=== PATIENT | male | born 1980 | race Caucasian/White ===

== ENCOUNTER 2017-03-17 15:07 | Inpatient (IN) | payer MEDICAID, OTHER ==
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
[2017-03-17] MEDS ORDERED: LORazepam 2 MG/ML SYRINGE IV STA (21:20)
[2017-03-17] MEDS ORDERED: diphenhydrAMINE 50 MG/ML 1 ML VIAL IVP STA (21:20)
[2017-03-17] MEDS ORDERED: LORazepam 2 MG/ML SYRINGE IM STA (21:26)
[2017-03-17] MEDS ORDERED: diphenhydrAMINE 50 MG/ML 1 ML VIAL IM STA (21:27)
[2017-03-17] MEDS ORDERED: ACETAMINOPHEN TAB 325 MG TAB PO PRN (21:39)
[2017-03-17] MEDS ORDERED: MAGNESIUM HYDROXIDE 2,400 MG/10 ML CUP PO PRN (21:39)
[2017-03-17] MEDS ORDERED: MAG HYDROX/AL HYDROX/SIMETH 30 ML CUP PO PRN (21:39)
[2017-03-17] MEDS ORDERED: LORazepam 2 MG/ML SYRINGE IM PRN (22:00)
[2017-03-17] MEDS ORDERED: ZIPRASIDONE 20 MG VIAL IM PRN (22:00)
[2017-03-17] MEDS: hydrOXYzine PAMOATE 25 MG CAP PO SCH (22:12)
[2017-03-17] MEDS: NICOTINE 21MG/24HR PATCH TRANSDERM SCH (22:12)
[2017-03-17] MEDS: QUEtiapine 100 MG TAB PO SCH (22:13)
[2017-03-17] MEDS: LORazepam 1 MG TAB PO PRN (23:18)
[2017-03-18] MEDS: NALTREXONE HCL 50 MG TAB PO SCH (08:28)
[2017-03-18] MEDS: hydrOXYzine PAMOATE 25 MG CAP PO SCH ×3 (08:28→20:54)
[2017-03-18] MEDS: NICOTINE 21MG/24HR PATCH TRANSDERM SCH (08:29)
[2017-03-18] MEDS: VENLAFAXINE HCL ER 75 MG CAP PO SCH (08:29)
[2017-03-18] MEDS: LORazepam 1 MG TAB PO PRN ×2 (08:34→17:54)
[2017-03-18 09:15] LABS: Basophils # (A) 0.1 k/uL (0-0.2); Basophils % (A) 1 %; CH 30.3; CHCM 34.5; Eosinophils # (A) 0.1 k/uL (0-0.7); Eosinophils % (A) 1 %; HCT 41.9 % (39.0-53.0); HDW 2.53; HGB 14.2 gm/dL (13.0-17.5); Luc # (Auto) 0.22; Luc % (Auto) 3; Lymphocytes # (A) 2.4 k/uL (1.0-4.8); Lymphocytes % (A) 27 %; MCHC 33.9 g/dL (31.0-37.0); MCV 88.5 fL (80.0-100.0); Mean Platelet Volume 5.8; Monocytes # (A) 0.6 k/uL (0-1.0); Monocytes % (A) 7 %; Neutrophils # (A) 5.5 k/uL (1.3-7.7); Neutrophils % (A) 62 %; RBC 4.73 m/uL (4.30-5.90); RDW 13.1 % (11.5-15.5); WBC (Perox) 9.41
[2017-03-18 09:42] LABS: ALT 30 U/L (21-72); AST 28 U/L (17-59); Alkaline Phosphatase 74 U/L (38-126); Anion Gap 10 mmol/L; Blood Urea Nitrogen 13 mg/dL (9-20); Calcium 10.1 mg/dL (8.4-10.2); Carbon Dioxide 30 mmol/L (22-30); Chloride 101 mmol/L (98-107); Glucose 94 mg/dL (74-99); Non-African American GFR(MDRD) >60 (>60 ml/min/1.73 sqM); Potassium 4.3 mmol/L (3.5-5.1); Sodium 141 mmol/L (137-145); Total Bilirubin 0.6 mg/dL (0.2-1.3); Total Protein 7.3 g/dL (6.3-8.2)
[2017-03-18] MEDS: QUEtiapine XR 200 MG TAB.ER.24H PO SCH ×3 (10:34→10:42)
--- NOTE | 2017-03-18 12:29 | HP ---
DATE OF ADMISSION: 03/17/2017 DATE OF SERVICE: 03/18/2017 IDENTIFYING DATA: Patient is a 36-year-old male. He was released from halfway one a week ago. He has been living in a motel. He has been on medications prescribed through [facility]. The patient was not able to give a very coherent history. CHIEF COMPLAINT: The patient states that he has "crazy thoughts." He says he had suicide thoughts, severe anxiety and difficulty organizing his thoughts. He feels confused. HISTORY OF PRESENTING ILLNESS: Patient reports long-term psychiatric problems. He has had previous admissions at this facility including September 06, 2015 and January 02, 2016. At his September 04 admission it was documented that he reported anxiety and depression. He had a relationship issues. He had moved [place] in the spring. He had similar problems at that time when he went off his medications where he became confused and had thoughts of suicide. He had been on Seroquel and Xanax. He reported being depressed and hopeless. He noted that both his parents who were had psychiatric issues. There were significant alcohol issues within his family. He had some past use of alcohol and marijuana. He reported at least 12 inpatient psychiatric hospitalizations He currently while in halfway, he was taking Seroquel 300 mg at bedtime, Seroquel XR 200 mg at bedtime, Effexor 225 mg a day, hydroxyzine 50 mg 3 times a day, Cogentin 2 mg a day and naltrexone 50 mg a day. He said that he was taking medications regularly in halfway that through his understanding came from [facility]. He does not recall seeing a doctor at [facility]. He got out of halfway one week ago and did not follow-up with [facility] and is not taking any medication. He reports poor sleep. He feels confused. He cannot organize his thoughts. He has anxiety. He gets panic attacks. He denies hallucinations or delusions. He did not report any paranoia. He was clear as to whether he has post traumatic experiences. He has loss of energy and motivation. He says he can keep his thoughts straight. He is admitted for further evaluation. Substance use history: As above. MEDICAL HISTORY: Patient reports general problems with headaches and stomachaches, but he was not specific about any past diagnosis. Patient also reports that he has arthritic pain in his back and joints. Further medical history and review of systems as per medical consultation. SOCIAL HISTORY: The only information the patient provided is that he just was released from halfway and has been living in a motel temporarily, he was not unable to provide any further information. MENTAL STATUS EXAM: Patient was unkempt in appearance. Eye contact fair to poor. Psychomotor activity quite restless. Speech was disorganized. He made frequent contradictory statements. He kept making comments that he was confused and could not keep track of the conversation. His affect was anxious and intense. His mood depressed. He was significantly distressed. It was difficult to say if he was experiencing any psychotic symptoms. He reported thoughts of suicide, though no plan or intent. On cognitive exam he knew some basic facts about his current circumstances, beyond that he was not able to cooperate with formal cognitive assessment. Fund of knowledge average. Physical exam as per medical consultation. DIAGNOSTIC STUDIES: CBC and comprehensive metabolic profile unremarkable. Hemoglobin 14.2, MCV 88.5, glucose 100, creatinine 0.9, TSH 0.3. Urinalysis unremarkable. Urine drug screen negative ASSESSMENT: This 36-year-old male is diagnosed with major depression and panic disorder. I would have concern that he may also have underlying posttraumatic stress disorder given some of the suggestions he made in regards to his family experience. His history at this interview was difficult to follow. Support system is nil. He does not have a stable living situation. Strengths uncertain. Weakness uncertain. DIAGNOSES: 1. Major depression, chronic and recurrent, severe with acute exacerbation without psychotic symptoms. 2. Panic disorder. 3. Rule out posttraumatic stress disorder. RECOMMENDATIONS: Patient will be admitted for comprehensive medical, psychiatric and psychosocial evaluation. Will make efforts to engage the patient in individual and group therapeutic activities. I will start the patient on Seroquel 200 mg XR in the morning, 300 mg regular at night. We will restart Effexor 75 mg a day. He is likely to need to be titrated up to more therapeutic dosing. I will continue Vistaril 50 mg 3 times a day and Naltrexone 50 mg a day. He also will continue Cogentin 2 mg at bedtime. I have started him on Motrin 600 mg q.6 hours p.r.n. for headaches and arthritic pain, which he has some complaint about. We will focus on trying to develop appropriate to community connections and refer for [facility] for follow-up.
[2017-03-18] MEDS: IBUPROFEN 600 MG TAB PO PRN (17:54)
--- NOTE | 2017-03-18 18:44 | CONS ---
DATE OF CONSULTATION: REASON FOR CONSULTATION: Medical history and physical for a patient admitted to psychiatric floor. HISTORY OF PRESENT ILLNESS: This is a 36-year-old gentleman with a remote history of traumatic brain injury and with a history of major depression who was admitted to the hospital with suicidal thoughts. Patient apparently was recently released from the group home; currently has been living in a motel. Patient states that he is having crazy thoughts about hurting himself; however, he has not made any plans to hurt himself. Patient was admitted to the psychiatric floor. During the time of my evaluation, patient denies having any further thoughts at this time; denies having any headaches, blurry vision, nausea, vomiting, diarrhea, chest pain. Patient does state he has a history of ongoing tobacco use and smokes about 2 packs of cigarettes. Past medical history includes major depression, anxiety/panic disorder. SOCIAL HISTORY: Currently lives in a motel. Denies active drug use or alcohol use. Does have a history of narcotic abuse. He smokes about 2 packs of cigarettes. SURGICAL HISTORY: None reported. REVIEW OF SYSTEMS: Fourteen-point review of systems was done; none pertinent other than as described above. FAMILY HISTORY: Not pertinent to the current admission. PHYSICAL EXAM: VITALS: Temperature 97.7, heart rate 89, respiratory rate 18, blood pressure 120/74. Saturating 98% on room air. GENERALLY: Patient appears to be alert, oriented x3. HEENT: The pupils are equal and reactive to light and accommodation. HEART: S1, S2 present. No murmur appreciated. LUNGS: Good air entry. No wheezing or rhonchi noted. ABDOMINAL EXAM: Soft, nontender, no organomegaly appreciated. GENITOURINARY: No Hussein in place. EXTREMITIES: Pulses can be palpated distally. Denies any tenderness on gross palpation. SKIN: On a gross skin exam does not appear to have any purpura or any skin rashes that were noted. PSYCHIATRIC: Patient does not make eye contact. Appears to have a somewhat flat affect. Denies having any suicidal thoughts. NEUROLOGIC EXAM: No focal motor or sensory deficits appreciated. Cranial nerves II through XII grossly intact. Gait is within normal limits. No dysdiadochokinesia appreciated. He is able to answer a 2-step question. He is able to remember 3 objects after 5 minutes. Medications were reviewed. Laboratory values include hemoglobin 14.2, hematocrit 41.9, platelets 287; white count 9; sodium 141, potassium 4.3, chloride 101, bicarb 30; BUN 13, creatinine 0.77. TSH was 0.756. Drug screen revealed drugs of abuse detected on the standard screen. ASSESSMENT AND PLAN: 1. Major depression with suicidal thoughts. 2. Ongoing tobacco use. 3. History of traumatic brain injury. 4. Panic disorder. 5. History of polysubstance use. PLAN: Patient on physical exam is appropriate and within normal limits. Neurologic exam is within normal limits. I do not recommend any further workup from a medicine perspective. Thank you for the consultation. Please call us back with any questions or concerns. Will follow the patient on an as-needed basis.
[2017-03-18] MEDS: QUEtiapine 100 MG TAB PO SCH (20:55)
[2017-03-18] MEDS: BENZTROPINE MESYLATE 1 MG TAB PO SCH (20:55)
[2017-03-19] MEDS: NALTREXONE HCL 50 MG TAB PO SCH (09:08)
[2017-03-19] MEDS: NICOTINE 21MG/24HR PATCH TRANSDERM SCH (09:08)
[2017-03-19] MEDS: hydrOXYzine PAMOATE 25 MG CAP PO SCH ×3 (09:09→21:37)
[2017-03-19] MEDS: LORazepam 1 MG TAB PO PRN ×3 (09:09→21:38)
[2017-03-19] MEDS: QUEtiapine XR 200 MG TAB.ER.24H PO SCH (09:09)
[2017-03-19] MEDS: VENLAFAXINE HCL ER 75 MG CAP PO SCH (09:09)
--- NOTE | 2017-03-19 10:55 | P.PN ---
Progress Note - Text Interval history: The patient is found in the hallway he follows me to an interview room. He states he was recently released from care home approximately one week ago and feels "like a day here in the headlights". He was in care home for approximately one year but refused to tell me what he was convicted of. He is concerned that his medications aren't right and that we are not prescribing what he used to be on with formerly [facility]. We reviewed the medications individually and it appears his Neurontin was not restarted which he feels has been helpful for anxiety. He indicates that he feels very uncomfortable he is anxious and just needs to talk to somebody. He is primarily focused on where he will go after discharge and asks if he would be eligible for a penitentiary. The psychiatric evaluation was reviewed. Mental status exam: The patient is a thin male appearing older than his stated age. He is dressed in jeans and or's T-shirt with an orange hooded sweatshirt with his thomas up. He has a long haque. The patient reports an anxious mood and feels depressed. Speech is fluent spontaneous he speaks with a southern accent. He reports hopelessness thinking was suicidal thoughts if he has to live like this area did no homicidal ideation. He is endorsing no auditory or visual hallucinations no specific delusions. He likely has a low average to below average intellect. He is concrete with his thinking. He demonstrates no verbal or physical aggressiveness. No abnormal involuntary movements. Insight and judgment limited. Plan: The patient will continue on his current psychotropic medications. We will add Neurontin 300 mg 3 times daily. He shows me a sore on his abdomen that he states is been there for several days that has not improved does appear erythematous it is scabbed over. I will prescribe Keflex 500 mg twice daily. We will monitor him for safety and encourage his participation in the milieu.
[2017-03-19] MEDS: CEPHALEXIN 500 MG CAP PO SCH ×2 (11:24→21:37)
[2017-03-19] MEDS: GABAPENTIN 300 MG CAP PO SCH ×3 (11:26→21:38)
[2017-03-19] MEDS: BENZTROPINE MESYLATE 1 MG TAB PO SCH (21:37)
[2017-03-19] MEDS: QUEtiapine 100 MG TAB PO SCH (21:37)
[2017-03-20] MEDS: hydrOXYzine PAMOATE 25 MG CAP PO SCH ×3 (08:33→20:32)
[2017-03-20] MEDS: NICOTINE 21MG/24HR PATCH TRANSDERM SCH (08:33)
[2017-03-20] MEDS: QUEtiapine XR 200 MG TAB.ER.24H PO SCH (08:34)
[2017-03-20] MEDS: GABAPENTIN 300 MG CAP PO SCH ×3 (08:34→20:32)
[2017-03-20] MEDS: VENLAFAXINE HCL ER 75 MG CAP PO SCH (08:34)
[2017-03-20] MEDS: CEPHALEXIN 500 MG CAP PO SCH ×2 (08:34→20:53)
[2017-03-20] MEDS: NALTREXONE HCL 50 MG TAB PO SCH (08:34)
[2017-03-20] MEDS: LORazepam 1 MG TAB PO PRN ×3 (08:35→20:32)
[2017-03-20] MEDS ORDERED: VENLAFAXINE HCL ER 75 MG CAP PO ONE (11:42)
--- NOTE | 2017-03-20 11:46 | P.PN ---
Progress Note - Text Interval history: The patient is found in the hallway he follows me to an interview room. He reports his mood is depressed and he feels anxious. We discussed his dose of Effexor and he states he knows he does better on the higher dose and currently is just at 75 mg. We discussed titrating that further. He is hoping he will build to sit down with social work for individual counseling. He did sleep last night it is documented that he slept 7 hours. Appetite is stable. He expresses concern that he won't be better prior to discharge. Mental status exam: The patient is a male appearing older than his stated age. He is dressed in the same attire yesterday wearing an orange hooded sweatshirt with the thomas up. He speaks with a southern accent. He endorses a depressed mood that is causing hopeless thinking. He reports ongoing symptoms of anxiety. He feels anxiety symptoms are debilitating. He reports no homicidal ideation. He is endorsing no auditory or visual hallucinations. He demonstrates no verbal or physical aggressiveness. Affect is blunted. Insight and judgment limited. He is oriented to person place and date. Thought process is circumstantial at times but there is no tangential thinking loose associations or flight of ideas. Plan: The patient has been restarted on his previous psychotropic medications we will increase the Effexor 250 mg daily this may need to be ultimately titrated back to 225 mg daily. Neurontin his is been restarted yesterday. He is encouraged to speak with staff to process his anxiety feelings. He is encouraged to attend groups. We will monitor him for safety. Vital signs reviewed.
--- NOTE | 2017-03-20 15:22 | PN ---
Patient was seen as consulted by Dr. Perez, my colleague and I was asked to re-evaluate the patient because of possibility of cellulitis. The patient has redness. There is a skin breakdown, probably from his itching, redness on the right side below the umbilical area with small area of cellulitis. Patient was started on Keflex which is appropriate I believe. Patient will be continued on Keflex. I reviewed his vital signs vitals which are stable. The temperature is 97.1%, pulse 77, respiratory rate of 16, blood pressure 102/64. I reviewed his medications and patient's renal function was assessed and normal creatinine a couple days ago. I agree with Keflex. There is no obvious abscess at this point of time. I recommended marking that area and watching that area on Keflex. If it does not improve or if it turns out to be abscess, then patient will need drainage at that time. I also ordered blood culture, although I do not expect it to be positive. Will continue to follow the patient on an as-needed basis.
[2017-03-20] MEDS: QUEtiapine 100 MG TAB PO SCH (20:32)
[2017-03-20] MEDS: BENZTROPINE MESYLATE 1 MG TAB PO SCH (20:32)
[2017-03-21 06:50] VITALS: TEMP 97.6
[2017-03-21] MEDS: NICOTINE 21MG/24HR PATCH TRANSDERM SCH (08:48)
[2017-03-21] MEDS: QUEtiapine XR 200 MG TAB.ER.24H PO SCH (08:49)
[2017-03-21] MEDS: NALTREXONE HCL 50 MG TAB PO SCH (08:49)
[2017-03-21] MEDS: LORazepam 1 MG TAB PO PRN ×2 (08:49→14:38)
[2017-03-21] MEDS: hydrOXYzine PAMOATE 25 MG CAP PO SCH (08:49)
[2017-03-21] MEDS: IBUPROFEN 600 MG TAB PO PRN (08:49)
[2017-03-21] MEDS: GABAPENTIN 300 MG CAP PO SCH (08:49)
[2017-03-21] MEDS: CEPHALEXIN 500 MG CAP PO SCH (08:49)
[2017-03-21 08:54] VITALS: BP 117/81; PULSE 111; RESP 20
[2017-03-21] MEDS ORDERED: VENLAFAXINE HCL ER 150 MG CAP PO SCH (09:00)
[2017-03-21] MEDS ORDERED: SULFAMETHOX-TMP 800-160MG 1 EACH TAB PO SCH (12:45)
--- NOTE | 2017-03-21 13:46 | P.DS ---
Providers Date of admission: 03/17/17 21:23 Attending physician: Preston Rodriguez Consults: 03/17/17 21:55 Consult Physician Routine Consulting Provider: Mia Marin Consult Reason/Comments: Medical Management Do you want consulting provider notified?: Yes Primary care physician: Zakia East - Discharge Diagnosis(es) (1) Suicidal ideation Current Visit: Yes Status: Acute Priority: Low (2) Alcohol intoxication Current Visit: Yes Status: Acute Priority: Low (3) Antisocial personality disorder Current Visit: Yes Status: Chronic Priority: Medium (4) Depression Current Visit: Yes Status: Acute Priority: Medium Hospital Course: He is a 36-year-old male who was released from assisted 1 week prior to admission. He was released from assisted with referral to [facility] however he did not keep his appointment. He did not provide a very coherent and organized history. He complained about having "crazy thoughts" which included thoughts of suicide, severe anxiety feeling confused and difficulty organizing his thoughts. He admitted to alcohol use and his BAL on presentation to the ER was 0.153. His UDS was negative for drugs of abuse. His long history of mental illness with multiple psychiatric hospitalizations. His last admission to this facility was in December 2015. See admission history dated 03/18/2017. We admitted him to the psychiatric unit under the care of Dr. Rodriguez. We provided a biopsychosocial assessment. 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 Sarita is prescribed Bactrim DS 1 tab twice a day for the cellulitis. We continue the medications prescribed on discharge from assisted that included: Cogentin 2 mg at bedtime, Neurontin 300 mg 3 times a day, Vistaril 50 mg 3 times a day, ReVia 50 mg daily, Seroquel 3 mg at bedtime and Seroquel XR 200 mg daily. We started Effexor XR for the treatment of complains of depression and anxiety and titrated dose to 150 mg daily. He participated intermittently in therapeutic groups and activities. He posed no management problem or displayed episodes of behavioral dyscontrol. He called [facility] and arrange for a bed at their [facility] house. At the time of discharge he denied thoughts of or suicide. She denied psychotic symptoms such as auditory or visual hallucinations, ideas of reference, thought insertion, thought broadcasting or thought control. He is scheduled for aftercare through community mental health services. In addition to the above prescribed medication he asked for a one-week supply of lorazepam 1 mg 3 times a day when necessary. Patient Condition at Discharge: Good Plan - Discharge Summary New Discharge Prescriptions: Benztropine Mesylate [Cogentin] 2 mg PO HS 30 Days Gabapentin [Neurontin] 300 mg PO TID 30 Days LORazepam [Ativan] 1 mg PO TID PRN #21 tab PRN Reason: Anxiety Naltrexone HCl [Revia] 50 mg PO QAM 30 Days Nicotine 21Mg/24Hr Patch [Habitrol] 1 patch TRANSDERM DAILY 7 Days QUEtiapine FUMARATE [SEROquel] 300 mg PO HS 30 Days QUEtiapine XR [SEROquel XR] 200 mg PO DAILY 30 Days Venlafaxine HCl ER [Effexor XR] 150 mg PO DAILY 30 Days hydrOXYzine PAMOATE [Vistaril] 50 mg PO TID 30 Days Discharge Medication List Benztropine Mesylate [Cogentin] 2 mg PO HS 30 Days 03/21/17 [Rx] Gabapentin [Neurontin] 300 mg PO TID 30 Days 03/21/17 [Rx] LORazepam [Ativan] 1 mg PO TID PRN #21 tab 03/21/17 [Rx] Naltrexone HCl [Revia] 50 mg PO QAM 30 Days 03/21/17 [Rx] Nicotine 21Mg/24Hr Patch [Habitrol] 1 patch TRANSDERM DAILY 7 Days 03/21/17 [Rx] QUEtiapine FUMARATE [SEROquel] 300 mg PO HS 30 Days 03/21/17 [Rx] QUEtiapine XR [SEROquel XR] 200 mg PO DAILY 30 Days 03/21/17 [Rx] Venlafaxine HCl ER [Effexor XR] 150 mg PO DAILY 30 Days 03/21/17 [Rx] hydrOXYzine PAMOATE [Vistaril] 50 mg PO TID 30 Days 03/21/17 [Rx] Follow up Appointment(s)/Referral(s): [facility] [Outside] - 03/23/17 11:40 am (Dr Bang) Zakia East MD [Primary Care Provider] - 1-2 days Patient Instructions/Handouts: How to Stop Smoking (DC), Depression (DC), Abuse of Alcohol (DC), Suicide Prevention for Adults (DC) Activity/Diet/Wound Care/Special Instructions: No alcohol or street drugs. Take medications as prescribed. Notify the crisis line or your care provider if symptoms worsen. Crisis line no. . Regular diet. Activity as tolerated. Make an appointment and follow up with your primary care doctor to follow up for abdominal wound. Discharge Disposition: HOME SELF-CARE
--- NOTE | 2017-03-21 18:44 | PN ---
I reevaluated this patient for his cellulitis in the abdominal area. Patient started having pus again; expressed a few milliliters of pus. I am getting cultures from that. Patient is being discharged today. I do not believe patient will need to be admitted as an inpatient. Patient's cellulitis, although improved, has more induration compared to yesterday. I asked him to watch it closely, and if it does not get better, I asked him to go and see his primary doctor. Patient has a history of MRSA. I am changing his Keflex to Bactrim for 7 days. Local wound care counseling was provided. Patient in my opinion does not need inpatient hospitalization. He can be discharged from psychiatric facility. Bactrim prescription was provided. Patient's vitals are stable.
== END 2017-03-21 15:34 | disposition home or self-care (01) | DRG 885 ==
LOC: EC 15:07 → 3MHU 21:23
PROVIDERS: ADMIT Psychiatry & Neurology Psychiatry; ATTEND Psychiatry & Neurology Psychiatry
DX: F33.2 Major depressive disorder, recurrent severe without psychotic features (principal); R45.851 Suicidal ideations; L03.316 Cellulitis of umbilicus; F31.9 Bipolar disorder, unspecified; F41.0 Panic disorder [episodic paroxysmal anxiety]; F60.2 Antisocial personality disorder; F17.210 Nicotine dependence, cigarettes, uncomplicated; Z87.820 Personal history of traumatic brain injury; Z86.14 Personal history of Methicillin resistant Staphylococcus aureus infection; Z79.899 Other long term (current) drug therapy; F43.10 Post-traumatic stress disorder, unspecified; F10.129 Alcohol abuse with intoxication, unspecified
CPT/HCPCS: 80053; 80306; 82075; 84443; 85025; 87040; 87070; 87075; 87205; 96372; 99285

== ENCOUNTER 2018-01-10 16:34 | Inpatient (IN) | payer MEDICAID, OTHER ==
[2018-01-10] MEDS ORDERED: NICOTINE 21MG/24HR PATCH TRANSDERM STA (17:54)
--- NOTE | 2018-01-10 17:57 | ED ---
Psych HPI - General Source: patient, RN notes reviewed, old records reviewed Mode of arrival: ambulatory <Margaret Patel - Last Filed: 01/10/18 19:10> <Raheel Sanches - Last Filed: 01/11/18 01:54> - General Chief Complaint: Psychiatric Symptoms Stated Complaint: Mental Health Time Seen by Provider: 01/10/18 16:54 - History of Present Illness Initial Comments: 37-year-old male presents today with suicidal ideations. He reports that he was on presentation some [facility] but decided to stop in 6 months ago because he felt like he didn't need them anymore. He reports that he's thought about walking into oncoming traffic. He reports that he is living with a roommate however he does not believe that his roommate is " sane". He also states that he occasionally feels like he hears voices. He reports that he has been drinking today. Denies any other drug use. Denies any physical complaints this time. He reports he is searching for help due to his suicidal thoughts. ( Margaret Patel) - Related Data Home Medications Medication Instructions Recorded Confirmed QUEtiapine [SEROquel] 50 mg PO QAM 01/10/18 01/10/18 QUEtiapine [SEROquel] 500 mg PO HS 01/10/18 01/10/18 buPROPion HCL [Wellbutrin XL] 300 mg PO DAILY 01/10/18 01/10/18 Previous Rx's Medication Instructions Recorded Gabapentin [Neurontin] 300 mg PO TID 30 Days cap 03/21/17 LORazepam [Ativan] 1 mg PO TID PRN #21 tab 03/21/17 Allergies Allergy/AdvReac Type Severity Reaction Status Date / Time fluphenazine HCl Allergy Swelling Verified 01/10/18 17:29 [From Prolixin] haloperidol lactate Allergy Swelling Verified 01/10/18 17:29 [From Haldol] olanzapine [From Zyprexa] Allergy Swelling Verified 01/10/18 17:29 Review of Systems ROS Other: All systems not noted in ROS Statement are negative. <Margaret Patel - Last Filed: 01/10/18 19:10> ROS Other: All systems not noted in ROS Statement are negative. <Raheel Sanches - Last Filed: 01/11/18 01:54> ROS Statement: Those systems with pertinent positive or pertinent negative responses have been documented in the HPI. Past Medical History Additional Past Medical History / Comment(s): Head Injury at 12 years old; in a coma x1 month. psychiatric problems History of Any Multi-Drug Resistant Organisms: None Reported Past Surgical History: Adenoidectomy, Tonsillectomy Additional Past Surgical History / Comment(s): Stitches in arms and legs "at different times" Past Anesthesia/Blood Transfusion Reactions: No Reported Reaction Past Psychological History: Anxiety, Depression Smoking Status: Current every day smoker - Past Family History Mother Family Medical History: Cancer Additional Family Medical History / Comment(s): Other at age 58 from cancer to the lung and brain Father Additional Family Medical History / Comment(s): Father at age 46 from motor vehicle accident. He was alcoholic. Brother(s) Additional Family Medical History / Comment(s): Patient has 1 brother addicted to pain pills. He does not have any sisters. He does not have any children. <Margaret Patel - Last Filed: 01/10/18 19:10> General Exam Limitations: no limitations Head exam: Present: atraumatic, normocephalic, normal inspection Eye exam: Present: normal appearance, PERRL, EOMI. Absent: scleral icterus, conjunctival injection, periorbital swelling ENT exam: Present: normal exam, mucous membranes moist Neck exam: Present: normal inspection. Absent: tenderness, meningismus, lymphadenopathy Respiratory exam: Present: normal lung sounds bilaterally. Absent: respiratory distress, wheezes, rales, rhonchi, stridor Cardiovascular Exam: Present: regular rate, normal rhythm, normal heart sounds. Absent: systolic murmur, diastolic murmur, rubs, gallop, clicks GI/Abdominal exam: Present: soft, normal bowel sounds. Absent: distended, tenderness, guarding, rebound, rigid Extremities exam: Present: normal inspection, full ROM, normal capillary refill. Absent: tenderness, pedal edema, joint swelling, calf tenderness Back exam: Present: normal inspection Neurological exam: Present: alert, oriented X3, CN II-XII intact <Margaret Patel - Last Filed: 01/10/18 19:10> <Raheel Sanches - Last Filed: 01/11/18 01:54> - General Exam Comments Initial Comments: This is a 37-year-old male. He appears mildly intoxicated. He is alert and oriented this time. No distress. (Margaret Patel) Vital Signs 01/10/18 01/10/18 16:47 20:10 Temperature 97.0 F L 98.2 F Pulse Rate 113 H 102 H Respiratory 18 16 Rate Blood Pressure 146/73 129/71 O2 Sat by Pulse 98 95 Oximetry Medical Decision Making <Margaret Patel - Last Filed: 01/10/18 19:10> <Raheel Sanches - Last Filed: 01/11/18 01:54> - Medical Decision Making This patient is a 37-year-old male with chief complaint suicidal ideations. He did arrive intoxicated. Patient will not be sober until 0030. Patient was medically cleared for psychiatric evaluation. (Margaret Patel) - Lab Data Lab Results 01/10/18 Range/Units 18:00 Urine Opiates Screen Not Detected (NotDetected) Ur Oxycodone Screen Not Detected (NotDetected) Urine Methadone Screen Not Detected (NotDetected) Ur Propoxyphene Screen Not Detected (NotDetected) Ur Barbiturates Screen Not Detected (NotDetected) U Tricyclic Antidepress Not Detected (NotDetected) Ur Phencyclidine Scrn Not Detected (NotDetected) Ur Amphetamines Screen Not Detected (NotDetected) U Methamphetamines Scrn Not Detected (NotDetected) U Benzodiazepines Scrn Not Detected (NotDetected) Urine Cocaine Screen Not Detected (NotDetected) U Marijuana (THC) Screen Not Detected (NotDetected) Disposition <Margaret Patel - Last Filed: 01/10/18 19:10> <Raheel Sanches - Last Filed: 01/11/18 01:54> Clinical Impression: Depression, Suicidal ideation, Alcohol intoxication Disposition: ADMITTED IP TO THIS HOSP
[2018-01-10 18:46] LABS: Amphetamine Screen,Urine Not Detected (NotDetected); Barbiturate Screen,Urine Not Detected (NotDetected); Benzodiazepines Screen,Urine Not Detected (NotDetected); Cocaine Screen,Urine Not Detected (NotDetected); Methadone Screen, Urine Not Detected (NotDetected); Opiate Screen,Urine Not Detected (NotDetected); Oxycodone Screen, Urine Not Detected (NotDetected); Phencyclidine Screen,Urine Not Detected (NotDetected); Tricyclic Antidepressant,Urine Not Detected (NotDetected); Urn Cannabinoid Scrn Not Detected (NotDetected)
[2018-01-11] MEDS ORDERED: MAGNESIUM HYDROXIDE 2,400 MG/10 ML CUP PO PRN (01:55)
[2018-01-11] MEDS ORDERED: MAG HYDROX/AL HYDROX/SIMETH 30 ML CUP PO PRN (01:55)
[2018-01-11] MEDS: LORazepam 1 MG TAB PO PRN ×5 (02:16→22:14)
[2018-01-11] MEDS: NICOTINE 21MG/24HR PATCH TRANSDERM SCH (08:38)
[2018-01-11] MEDS: ACETAMINOPHEN TAB 325 MG TAB PO PRN ×2 (08:41→12:15)
[2018-01-11 10:38] LABS: Basophils % (A) 1 %; Eosinophils # (A) 0.1 k/uL (0-0.7); Eosinophils % (A) 1 %; HCT 47.5 % (39.0-53.0); HGB 14.8 gm/dL (13.0-17.5); Lymphocytes # (A) 0.8 k/uL (1.0-4.8); Lymphocytes % (A) 13 %; MCH 30.1 pg (25.0-35.0); MCHC 31.1 g/dL (31.0-37.0); MCV 96.8 fL (80.0-100.0); Mean Platelet Volume 6.4; Monocytes % (A) 15 %; Neutrophils # (A) 4.4 k/uL (1.3-7.7); Neutrophils % (A) 70 %; Platelet Count 318 k/uL (150-450); RBC 4.91 m/uL (4.30-5.90); RDW 13.1 % (11.5-15.5); WBC 6.3 k/uL (3.8-10.6)
--- NOTE | 2018-01-11 11:27 | P.MDCNMH ---
History of Present Illness H&P Date: 01/11/18 Chief Complaint: Suicidal ideation 37-year-old male presents today with suicidal ideations. He reports that he was on some psychiatric medications but decided to stop them 6 months ago because he felt like he didn't need them anymore. He did well until about a month and a half ago when he started having problems with his girlfried and with his job which he lost. Started drinking about a fifth of vodka everyday. He has been having suicidal ideations since then, been thinking about walking into oncoming traffic. He denied hallucinations or delusions. Denies any other drug use. Denies any physical complaints this time. Review of Systems 12 point review of system was performed, negative except HPI Past Medical History Past Medical History: No Reported History Additional Past Medical History / Comment(s): Head Injury at 12 years old; in a coma x1 month. psychiatric problems History of Any Multi-Drug Resistant Organisms: None Reported Past Surgical History: Adenoidectomy, Tonsillectomy Additional Past Surgical History / Comment(s): Stitches in arms and legs "at different times" Past Anesthesia/Blood Transfusion Reactions: No Reported Reaction Past Psychological History: Anxiety, Depression Smoking Status: Current every day smoker - Past Family History Mother Family Medical History: Cancer Additional Family Medical History / Comment(s): Other at age 58 from cancer to the lung and brain Father Additional Family Medical History / Comment(s): Father at age 46 from motor vehicle accident. He was alcoholic. Brother(s) Additional Family Medical History / Comment(s): Patient has 1 brother addicted to pain pills. He does not have any sisters. He does not have any children. Medications and Allergies Home Medications Medication Instructions Recorded Confirmed Type Gabapentin [Neurontin] 300 mg PO TID 30 Days cap 03/21/17 01/10/18 Rx LORazepam [Ativan] 1 mg PO TID PRN #21 tab 03/21/17 01/10/18 Rx QUEtiapine [SEROquel] 50 mg PO QAM 01/10/18 01/10/18 History QUEtiapine [SEROquel] 500 mg PO HS 01/10/18 01/10/18 History buPROPion HCL [Wellbutrin XL] 300 mg PO DAILY 01/10/18 01/10/18 History Allergies Allergy/AdvReac Type Severity Reaction Status Date / Time fluphenazine HCl Allergy Swelling Verified 01/10/18 17:29 [From Prolixin] haloperidol lactate Allergy Swelling Verified 01/10/18 17:29 [From Haldol] olanzapine [From Zyprexa] Allergy Swelling Verified 01/10/18 17:29 Physical Exam Vitals: Vital Signs Temp Pulse Pulse Resp BP BP Pulse Ox 01/11/18 03:20 98.2 F 97 16 140/80 94 L 01/11/18 01:56 97.8 F 100 19 127/70 95 01/10/18 20:10 98.2 F 102 H 16 129/71 95 01/10/18 16:47 97.0 F L 113 H 18 146/73 98 Intake and Output 01/10/18 01/11/18 01/11/18 22:59 06:59 14:59 Other: Weight 76.657 kg 73.6 kg Constitutional: No acute distress, conversant, pleasant Eyes: Anicteric sclerae, moist conjunctiva, no lid-lag, PERRLA ENMT: NC/AT,Oropharynx clear, no erythema, exudates Neck:Supple, FROM, no masses, or JVD, No carotid bruits; No thyromegaly Lungs: Clear to auscultation, Clear to percussion, Normal respiratory effort, no accessory muscle use Cardiovascular: Heart regular in rate and rhythm, No murmurs, gallops, or rubs no peripheral edema Abdominal: Soft, NT, non distended, no guarding, no rebound or rigidity, Normoactive bowel sounds No hepatomegaly, No splenomegaly, No palpable mass No abdominal wall hernia noted Skin: Normal temperature, tone, texture, turgor, No induration No subcutaneous nodules, No rash, lesions, No ulcers Extremities:No digital cyanosis No clubbing, Pedal pulses intact and symmetrical Radial pulses intact and symmetrical Normal gait and station, No calf tenderness Psychiatric: Alert and oriented to person, place and time, Appropriate affect Intact judgement Neuro: +Bilateral arms/hands tremors, muscles Strength 5/5 in all 4 extremities , Sensation to light touch grossly present throughout, Cranial nerves II-XII grossly intact. No focal sensory deficits Cranial Nerve Examination - Cranial Nerves Cranial Nerve II- Optic: Intact Cranial Nerve III- Oculomotor: Intact Cranial Nerve IV- Trochlear: Intact Cranial Nerve V- Trigeminal: Intact Cranial Nerve - Abducens: Intact Cranial Nerve VII- Facial: Intact Cranial Nerve VIII- Auditory: Intact Cranial Nerve IX- Glossopharyngeal: Intact Cranial Nerve X- Vagus: Intact Cranial Nerve XI- Accessory: Intact Cranial Nerve XII- Hypoglossal: Intact Results CBC & Chem 7: 01/11/18 10:08 Assessment and Plan Plan: 1-Suicidal ideation/Depression: Management per psych 2-Alcohol withdrawal: Currently having symptoms of withdrawal Start ETOH withdrawal protocol Ativan prn 3-Smoking ETOH abuse: counseled to quit 4-Health maintenance: Order CBC, CMP, Mg, TSH.
[2018-01-11 11:29] LABS: ALT 112 U/L (21-72); AST 108 U/L (17-59); Albumin 4.5 g/dL (3.5-5.0); Alkaline Phosphatase 97 U/L (38-126); Anion Gap 12 mmol/L; Blood Urea Nitrogen 14 mg/dL (9-20); Calcium 9.8 mg/dL (8.4-10.2); Carbon Dioxide 31 mmol/L (22-30); Chloride 95 mmol/L (98-107); Cholesterol 153 mg/dL (<200); Glucose 114 mg/dL (74-99); HDL Cholesterol 73 mg/dL (40-60); LDL Cholesterol,Calculated 68 mg/dL (0-99); Potassium 4.5 mmol/L (3.5-5.1); Sodium 138 mmol/L (137-145); Total Bilirubin 0.8 mg/dL (0.2-1.3); Total Protein 6.9 g/dL (6.3-8.2); Triglycerides 61 mg/dL (<150)
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
[2018-01-11 19:05] LABS: Hemoglobin A1C 5.7 % (4.0-6.0)
[2018-01-11] MEDS: hydrOXYzine PAMOATE 25 MG CAP PO PRN (20:16)
[2018-01-11] MEDS: QUEtiapine 50 MG TAB PO SCH (20:16)
[2018-01-12] MEDS: NICOTINE 21MG/24HR PATCH TRANSDERM SCH (08:21)
[2018-01-12] MEDS: buPROPion SR 150 MG TABLET.ER PO SCH (08:21)
[2018-01-12] MEDS: QUEtiapine 50 MG TAB PO SCH ×2 (08:22→20:44)
[2018-01-12] MEDS: LORazepam 1 MG TAB PO PRN ×4 (08:23→20:43)
[2018-01-12] MEDS: hydrOXYzine PAMOATE 25 MG CAP PO PRN ×3 (08:23→20:43)
--- NOTE | 2018-01-12 08:41 | P.PN ---
Progress Note - Text Progress Note Date: 01/12/18 Interval History: Patient is a 37-year-old male who was seen this morning states that he slept well last evening. Patient states that he continues to have suicidal thoughts but no plans or intent to act. States that he ate well yesterday but was not able to eat this morning. He states that he continues to have some shaking and tremulousness and took some Ativan this morning for his alcohol withdrawal. Patient reports he remains depressed and feels overwhelmed , states he is confused about how things will continue in the future. Patient reports no side effects from the medication. Mental Status: Appearance/Attitude: Patient is appropriately dressed, makes intermittent eye contact and is cooperative. Behavior: Patient does not display any psychomotor agitation or retardation. Speech/Language: Patient's speech is spontaneous of normal volume and rhythm and he is coherent Thought Process: Patient is goal-directed there is no evidence of loose associations or flight of ideas and he is not tangential or circumstantial Thought Content: Patient denies any auditory or visual hallucination and denies any paranoid or delusional ideation. Patient continues to feel overwhelmed, confused by the situation and unsure of what the future holds. Patient states he slept well last night and ate yesterday but that he was unable to keep breakfast this morning. Suicidal/Homicidal Ideation: Patient states he continues to have suicidal ideation with no intent or plan and denies any current homicidal ideation Sensorium/Cognition: Patient is alert and oriented to person, place, and time and his recent and remote memory are grossly intact. Mood/Affect: Patient's mood is depressed and his affect is blunted Insight/Judgment: Patient's insight and judgment are fair Assessment: Patient presents today having started the Wellbutrin this morning and the Seroquel yesterday. Patient states that he slept well continues to have some shaking and tremulousness which she is taking Ativan for and his pulse rate was elevated yesterday. Patient states that he is able to eat yesterday but not this morning. He continues to express suicidal ideation with no plan or intent to act. Patient states that he is not having any side effects from the medication and reports that he feels confused and overwhelmed with what will happen in the future. Plan: Patient will continue on Seroquel 50 mg in the morning and 150 mg at night and we'll continue to increase this dose as the patient tolerates, patient continues on Wellbutrin 1 or 50 mg sustained release in the morning and increase as patient tolerates to target his mood disorder. Patient was started on thiamine and we'll start a multivitamin today. We will order repeat liver enzymes for Tuesday morning. Patient continues to require hospitalization secondary to suicidal ideation and depression.
[2018-01-12] MEDS: THIAMINE 100 MG TAB PO SCH (11:06)
[2018-01-12] MEDS: MULTIVITAMINS, THERA 1 EACH TAB PO SCH (11:06)
[2018-01-12] MEDS: ACETAMINOPHEN TAB 325 MG TAB PO PRN ×2 (11:09→16:43)
[2018-01-13] MEDS: LORazepam 1 MG TAB PO PRN ×2 (00:02→08:30)
[2018-01-13] MEDS: NICOTINE 21MG/24HR PATCH TRANSDERM SCH (08:28)
[2018-01-13] MEDS: QUEtiapine 50 MG TAB PO SCH ×2 (08:28→15:09)
[2018-01-13] MEDS: buPROPion SR 150 MG TABLET.ER PO SCH (08:28)
[2018-01-13] MEDS: ACETAMINOPHEN TAB 325 MG TAB PO PRN ×3 (08:31→20:59)
[2018-01-13] MEDS: hydrOXYzine PAMOATE 25 MG CAP PO PRN (09:29)
[2018-01-13] MEDS ORDERED: buPROPion XL 150 MG TAB.ER.24H PO STA (11:36)
[2018-01-13] MEDS: LORazepam 0.5 MG TAB PO SCH ×2 (12:02→20:58)
[2018-01-13] MEDS: MULTIVITAMINS, THERA 1 EACH TAB PO SCH (12:02)
[2018-01-13] MEDS: THIAMINE 100 MG TAB PO SCH (12:03)
[2018-01-13] MEDS: NALTREXONE HCL 50 MG TAB PO SCH (12:05)
--- NOTE | 2018-01-13 12:23 | PN ---
PROGRESS NOTE DATE OF SERVICE: 01/13/2018 CHIEF COMPLAINT: The patient was admitted for depression with thoughts of suicide of jumping in front of traffic. He reports drinking a fifth of vodka daily for the last several months. INTERVAL HISTORY: Patient has been doing fair. He continues to complain of a lot of anxiety. He says that he has some thoughts of self-harm, though feels that it is quieter. He notices some withdrawal issues, though it is noted that his vital signs are stable. He has not shown diaphoresis, he does have some tremors, though it seems to be more situational as when he is observed with other patients in a social setting. He seems to be much calmer. He has a very strong focus on various pills. He thinks he needs to help with withdrawal. He says the Seroquel he took this morning seemed to help him calm down for a while. He does get out in interacts with others. He has been doing some therapeutic walking. He has not had change in his general health. He tolerates his psychotropic medications. The patient is seen in cross coverage for Dr. Tavares. MENTAL STATUS: Patient was restless. He gave fair eye contact at best. Psychomotor activity was somewhat slowed. His affect was anxious and constricted. His mood down. It was difficult to say if he was significantly distressed. ASSESSMENT: I will continue the current diagnosis and general treatment plan. I will increase his Wellbutrin from 150 mg a day up to 300 mg a day. I will increase his Seroquel to 50 mg in the morning, 50 mg in the afternoon and 200 mg at bedtime. I will start the patient on ReVia 50 mg a day. The aim of ReVia is to help reduce risk for a relapse. I will start the patient on Ativan 0.5 mg twice a day and discontinue his p.r.n. Ativan. Part of the aim for a regular dosing of Ativan is to help to reduce his focus on medications particularly Ativan. We had an extensive discussion regarding issues relating to alcohol withdrawal. In a similar vein, I will discontinue Vistaril with the aim of trying to help the patient be less focus on his medications and more focused on things that he can do to help with early withdrawal. Will continue to monitor vital signs for acute alcohol withdrawal issues. I would look to discontinue the patient from Ativan prior to discharge. We will continue to focus on stabilization and discharge planning. PAUL / NIGAHTN: [id number] /
[2018-01-13] MEDS: QUEtiapine 200 MG TAB PO SCH (20:58)
[2018-01-14] MEDS ORDERED: MELATONIN 3 MG TABLET PO ONE (01:11)
[2018-01-14 06:35] VITALS: RESP 16
[2018-01-14] MEDS: LORazepam 0.5 MG TAB PO SCH (08:14)
[2018-01-14] MEDS: QUEtiapine 50 MG TAB PO SCH ×2 (08:14→15:11)
[2018-01-14] MEDS: NALTREXONE HCL 50 MG TAB PO SCH (08:14)
[2018-01-14] MEDS: NICOTINE POLACRILEX 2 MG GUM BUCCAL PRN ×6 (08:15→20:30)
[2018-01-14] MEDS ORDERED: buPROPion XL 300 MG TAB.ER.24H PO SCH (09:00)
[2018-01-14] MEDS: MULTIVITAMINS, THERA 1 EACH TAB PO SCH (12:46)
[2018-01-14] MEDS: THIAMINE 100 MG TAB PO SCH (12:46)
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
[2018-01-14] MEDS: ACETAMINOPHEN TAB 325 MG TAB PO PRN ×2 (14:12→17:29)
--- NOTE | 2018-01-14 15:09 | P.PN ---
Subjective Progress Note Date: 01/14/18 Principal diagnosis: Interval history: The patient was seen in the office ,he reports high anxiety since increasing Wellbutrin and discontinue Vistaril in addition to cutting down on Ativan ,patient said "I WAS MUCH BETTER ON ATIVAN Q 4 HOURS",he rates his anxiety 9/10,depression 8/10 ,10 being the worst,he has trouble sleeping last night and took prn Melatonin but did not help his appetite has been better. He is still endorsing vague suicidal ideations ,has fine hands tremors ,no psychotic features Mental status exam: The patient's is an alert male. He is dressed in his own clothings .Stated mood "NERVOUS AND DEPRESSED" Affect is bland with little reactivity. Eye contact is intermittent. Speech is spontaneous ,he endorses vague suicidal ideation ,denies any hallucinations ,insight to his addiction is very limited. He demonstrates no verbal or physical aggressiveness. Plan: The patient will continue on current psychotropic medications ,however we will change Wellbutrin to 150 mg instead of 300 mg to minimize anxiety,add Vistaril PRN for anxiety Ativan from schedule dose to PRN to avoid cross addiction Encourage participation in milieu We will continue to monitor him for safety and overall function on the mental health unit. He requires continued psychiatric hospitalization. . Objective - Vital Signs Vital signs: Vital Signs Temp 97.7 F 01/14/18 06:34 Pulse 80 01/14/18 06:34 Resp 16 01/14/18 06:34 BP 126/63 01/14/18 06:34 Pulse Ox 94 L 01/11/18 03:20 - Labs CBC & Chem 7: 01/11/18 10:08 01/11/18 10:08
[2018-01-14] MEDS: LORazepam 0.5 MG TAB PO PRN (15:13)
[2018-01-14] MEDS: hydrOXYzine PAMOATE 25 MG CAP PO PRN ×2 (17:28→22:38)
[2018-01-14] MEDS: QUEtiapine 200 MG TAB PO SCH (20:29)
[2018-01-15 07:05] VITALS: BP 110/61
[2018-01-15] MEDS: buPROPion XL 150 MG TAB.ER.24H PO SCH (08:33)
[2018-01-15] MEDS: NALTREXONE HCL 50 MG TAB PO SCH (08:33)
[2018-01-15] MEDS: QUEtiapine 50 MG TAB PO SCH ×2 (08:35→15:17)
[2018-01-15] MEDS: ACETAMINOPHEN TAB 325 MG TAB PO PRN ×3 (08:35→19:46)
[2018-01-15] MEDS: LORazepam 0.5 MG TAB PO PRN ×2 (08:36→19:46)
[2018-01-15] MEDS: NICOTINE POLACRILEX 2 MG GUM BUCCAL PRN ×5 (08:36→18:33)
[2018-01-15] MEDS: hydrOXYzine PAMOATE 25 MG CAP PO PRN ×3 (10:03→21:49)
[2018-01-15] MEDS: THIAMINE 100 MG TAB PO SCH (12:20)
[2018-01-15] MEDS: MULTIVITAMINS, THERA 1 EACH TAB PO SCH (12:20)
--- NOTE | 2018-01-15 13:54 | P.PN ---
Progress Note - Text Progress Note Date: 01/15/18 Interval history: The patient was seen in the office ,he stated that he has been more nervous and anxious for last 2-3 days ,still asking to have Ativan [id number] PRN ,no insight to his addiction ,does not endorse any psychotic features ,sleeping and appetite improving,rates his anxiety 7 or 8/10 , depression 6/10 10 being the worst,stated that SI "Comes and goes",endorses worries about after D/C plan Per RN :slept 7 hours ,participating in groups Mental status exam: The patient's is an alert male. He is dressed in his own clothings .Stated mood "NERVOUS " Affect is bland with little reactivity. Eye contact is intermittent. Speech is spontaneous ,he endorses vague suicidal ideation ,denies any hallucinations ,insight to his addiction is very limited. He demonstrates no verbal or physical aggressiveness. Plan: The patient will continue on current psychotropic medications ,however we will add Neurontin for anxiety ,continue Vistaril PRN for anxiety . Encourage participation in milieu We will continue to monitor him for safety and overall function on the mental health unit. He requires continued psychiatric hospitalization. .
[2018-01-15] MEDS: GABAPENTIN 100 MG CAP PO SCH ×2 (15:17→20:59)
[2018-01-15] MEDS: QUEtiapine 200 MG TAB PO SCH (20:59)
[2018-01-16 06:40] VITALS: PULSE 69; TEMP 97.7
[2018-01-16] MEDS: NALTREXONE HCL 50 MG TAB PO SCH (08:29)
[2018-01-16] MEDS: GABAPENTIN 100 MG CAP PO SCH (08:29)
[2018-01-16] MEDS: QUEtiapine 50 MG TAB PO SCH (08:30)
[2018-01-16] MEDS: NICOTINE POLACRILEX 2 MG GUM BUCCAL PRN ×3 (08:30→13:22)
[2018-01-16] MEDS: buPROPion XL 150 MG TAB.ER.24H PO SCH (08:30)
[2018-01-16] MEDS: hydrOXYzine PAMOATE 25 MG CAP PO PRN (09:17)
[2018-01-16 09:57] LABS: ALT 463 U/L (21-72); AST 188 U/L (17-59); Albumin 4.8 g/dL (3.5-5.0); Alkaline Phosphatase 85 U/L (38-126); Anion Gap 15 mmol/L; Blood Urea Nitrogen 15 mg/dL (9-20); Calcium 9.9 mg/dL (8.4-10.2); Carbon Dioxide 27 mmol/L (22-30); Chloride 101 mmol/L (98-107); Glucose 81 mg/dL (74-99); Potassium 4.6 mmol/L (3.5-5.1); Sodium 143 mmol/L (137-145); Total Bilirubin 0.4 mg/dL (0.2-1.3); Total Protein 7.3 g/dL (6.3-8.2)
[2018-01-16] MEDS: THIAMINE 100 MG TAB PO SCH (11:31)
[2018-01-16] MEDS: MULTIVITAMINS, THERA 1 EACH TAB PO SCH (11:31)
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
== END 2018-01-16 14:28 | disposition home or self-care (01) | DRG 885 ==
LOC: EC 16:34 → 3MHU 01-11 01:39
PROVIDERS: ADMIT Psychiatry & Neurology Psychiatry; ATTEND Psychiatry & Neurology Psychiatry
DX: F33.1 Major depressive disorder, recurrent, moderate (principal); R45.851 Suicidal ideations; Z91.14 Patient's other noncompliance with medication regimen; F10.239 Alcohol dependence with withdrawal, unspecified; F17.200 Nicotine dependence, unspecified, uncomplicated; F41.9 Anxiety disorder, unspecified; Z79.899 Other long term (current) drug therapy; Z81.8 Family history of other mental and behavioral disorders; Z87.820 Personal history of traumatic brain injury; Z91.5 Personal history of self-harm
CPT/HCPCS: 80053; 80061; 80306; 82075; 83036; 84443; 85025; 99285

== ENCOUNTER 2018-02-06 21:48 | Emergency (ER) | payer OTHER ==
--- NOTE | 2018-02-06 22:30 | XR ---
PROCEDURE: XR foot complete LT, 3 views DATE AND TIME: 02/06/2018 10:25 PM REFERRING PHYSICIAN: Shahram Robert CLINICAL INDICATION: PHH, Pain TECHNIQUE: Department protocol. COMPARISON: None FINDINGS: There is no fracture or malalignment. The soft tissues are unremarkable. IMPRESSION: Negative examination.
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
[2018-02-06 23:10] VITALS: BP 140/78; PULSE 93; RESP 16; TEMP 97
== END 2018-02-06 23:12 | disposition home or self-care (01) ==
LOC: EC 21:48
DX: M79.672 Pain in left foot (principal); F17.200 Nicotine dependence, unspecified, uncomplicated; Z88.8 Allergy status to other drugs, medicaments and biological substances; Z98.890 Other specified postprocedural states
CPT/HCPCS: 99283

== ENCOUNTER 2018-11-17 17:35 | Inpatient (IN) | payer MEDICAID, OTHER ==
[2018-11-17 18:38] LABS: Amphetamine Screen,Urine Not Detected (NotDetected); Barbiturate Screen,Urine Not Detected (NotDetected); Benzodiazepines Screen,Urine Detected (NotDetected); Cocaine Screen,Urine Not Detected (NotDetected); Methadone Screen, Urine Not Detected (NotDetected); Opiate Screen,Urine Not Detected (NotDetected); Oxycodone Screen, Urine Not Detected (NotDetected); Phencyclidine Screen,Urine Not Detected (NotDetected); Tricyclic Antidepressant,Urine Not Detected (NotDetected); Urn Cannabinoid Scrn Not Detected (NotDetected)
[2018-11-17] MEDS ORDERED: NICOTINE 21MG/24HR PATCH TRANSDERM STA (18:43)
[2018-11-17] MEDS ORDERED: LORazepam 2 MG/ML INJ IM STA (19:52)
[2018-11-17] MEDS ORDERED: ZIPRASIDONE 20 MG VIAL IM STA (19:52)
[2018-11-17] MEDS ORDERED: MAGNESIUM HYDROXIDE 2,400 MG/10 ML CUP PO PRN (20:52)
[2018-11-17] MEDS ORDERED: ZIPRASIDONE 20 MG VIAL IM PRN (21:00)
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
[2018-11-17] MEDS: NICOTINE 21MG/24HR PATCH TRANSDERM SCH (21:31)
[2018-11-18] MEDS: NICOTINE 21MG/24HR PATCH TRANSDERM SCH (06:02)
[2018-11-18] MEDS ORDERED: LORazepam 1 MG TAB PO PRN (06:02)
[2018-11-18] MEDS: ACETAMINOPHEN TAB 325 MG TAB PO PRN ×3 (06:14→20:19)
[2018-11-18 07:55] LABS: Basophils # (A) 0.1 k/uL (0-0.2); Basophils % (A) 1 %; Eosinophils # (A) 0.4 k/uL (0-0.7); Eosinophils % (A) 4 %; HCT 45.1 % (39.0-53.0); HGB 14.8 gm/dL (13.0-17.5); Lymphocytes # (A) 2.5 k/uL (1.0-4.8); Lymphocytes % (A) 24 %; MCHC 32.9 g/dL (31.0-37.0); MCV 91.3 fL (80.0-100.0); Mean Platelet Volume 6.4; Monocytes # (A) 0.8 k/uL (0-1.0); Monocytes % (A) 7 %; Neutrophils # (A) 6.6 k/uL (1.3-7.7); Neutrophils % (A) 63 %; Platelet Count 325 k/uL (150-450); RBC 4.94 m/uL (4.30-5.90); RDW 13.1 % (11.5-15.5); WBC 10.5 k/uL (3.8-10.6)
[2018-11-18 08:01] LABS: ALT 38 U/L (21-72); AST 38 U/L (17-59); Albumin 4.3 g/dL (3.5-5.0); Alkaline Phosphatase 98 U/L (38-126); Anion Gap 5 mmol/L; Bilirubin, Delta 0.1 mg/dL (0.0-0.2); Bilirubin,Unconjugated 0.5 mg/dL (0.0-1.1); Blood Urea Nitrogen 8 mg/dL (9-20); Calcium 9.8 mg/dL (8.4-10.2); Carbon Dioxide 30 mmol/L (22-30); Chloride 102 mmol/L (98-107); Cholesterol 172 mg/dL (<200); Glucose 101 mg/dL (74-99); HDL Cholesterol 49 mg/dL (40-60); LDL Cholesterol,Calculated 90 mg/dL (0-99); Sodium 137 mmol/L (137-145); Total Bilirubin 0.6 mg/dL (0.2-1.3); Total Protein 7.1 g/dL (6.3-8.2); Triglycerides 166 mg/dL (<150)
[2018-11-18] MEDS ORDERED: IBUPROFEN 800 MG TAB PO PRN (10:42)
[2018-11-18] MEDS: OLANZapine 5 MG TAB PO SCH ×3 (10:57→20:19)
[2018-11-18] MEDS: MAG HYDROX/AL HYDROX/SIMETH 30 ML CUP PO PRN (11:01)
[2018-11-18] MEDS: DIPHENOX-ATROP 2.5-0.025 MG 1 EACH TAB PO PRN ×2 (11:01→20:19)
[2018-11-18 13:23] LABS: Hemoglobin A1C 5.5 % (4.0-6.0)
--- NOTE | 2018-11-18 14:07 | P.MDCNMH ---
History of Present Illness H&P Date: 11/18/18 Chief Complaint: Medical management 38-year-old male with PMH of anxiety presents the ED involuntarily brought in by police. Reports of being in his girlfriend's home with suicidal ideations. Apparently girlfriend was not home at that time, and [place]. He is been taking her psychiatric medications, Ativan while she has not been there. Patient complains of headaches. Headaches are located in the occipital and bitemporal region. Patient associates headache with withdrawal from opiates and Ativan. Pain is 10 out of 10 in severity. No fever, chills, nausea or vomiting. Pain occasionally radiates from the occipital region to the paraspinal muscles in the back. Patient reports chronic neck pain associated with his neck being "curved the wrong way". He was previously advised surgical intervention refuse. He complains of intense muscles in his neck and upper back. Patient is requesting Fioricet for his pain. Of note, patient reports diarrhea for the past 3 days. Stools normal color with no blood denies any recent antibiotic use or foreign travel. He denies any lower extremity swelling, cough, chest pain, shortness of breath, palpitations, changes in urination or bowel habits. No changes in appetite or weight. No bladder or bowel incontinence, saddle anesthesia. No numbness, weakness or tingling of the lower martin's. Review of Systems All systems: negative Past Medical History Past Medical History: No Reported History Additional Past Medical History / Comment(s): Head Injury at 12 years old; in a coma x1 month. psychiatric problems History of Any Multi-Drug Resistant Organisms: None Reported Past Surgical History: Adenoidectomy, Tonsillectomy Additional Past Surgical History / Comment(s): Stitches in arms and legs "at different times" Past Anesthesia/Blood Transfusion Reactions: No Reported Reaction Past Psychological History: Anxiety, Depression Smoking Status: Current every day smoker Past Alcohol Use History: None Reported Past Drug Use History: None Reported - Past Family History Mother Family Medical History: Cancer Additional Family Medical History / Comment(s): Other at age 58 from cancer to the lung and brain Father Additional Family Medical History / Comment(s): Father at age 46 from motor vehicle accident. He was alcoholic. Brother(s) Additional Family Medical History / Comment(s): Patient has 1 brother addicted to pain pills. He does not have any sisters. He does not have any children. Medications and Allergies Home Medications Medication Instructions Recorded Confirmed Type No Known Home Medications 11/17/18 11/17/18 History Allergies Allergy/AdvReac Type Severity Reaction Status Date / Time fluphenazine HCl Allergy Swelling Verified 11/17/18 20:11 [From Prolixin] haloperidol lactate Allergy Swelling Verified 11/17/18 20:11 [From Haldol] olanzapine [From Zyprexa] Allergy Swelling Verified 11/17/18 20:11 Physical Exam Vitals: Vital Signs Temp Pulse Pulse Resp BP BP Pulse Ox 11/17/18 21:33 94 18 125/61 11/17/18 17:39 98 F 102 H 20 131/73 96 Intake and Output 11/17/18 11/18/18 11/18/18 22:59 06:59 14:59 Other: Weight 78.018 kg General: [non toxic], [no distress], [appears at stated age] Derm: [warm], [dry] Head: [atraumatic], [normocephalic], [symmetric] Eyes: [EOMI], [no lid lag], [anicteric sclera] Mouth: [no lip lesion], [mucus membranes moist] Cardiovascular: [S1S2 reg], [no murmur], [positive DP pulse bilateral] Lungs: [CTA bilateral], [no rhonchi, no rales] , [no accessory muscle use] Abdominal: [soft], [ nontender to palpation], [no guarding], [no appreciable organomegaly] Ext: [no gross muscle atrophy], [no edema], [no contractures] Neuro: [ CN II-XI grossly intact], [no focal neuro deficits] Psych: [Alert], [oriented], [appropriate affect] Neck range of motion within normal limits. Tenderness with palpation of the paraspinal muscles and trapezius bilaterally. No vertebral tenderness. Cranial Nerve Examination - Cranial Nerves Cranial Nerve II- Optic: Intact Cranial Nerve III- Oculomotor: Intact Cranial Nerve IV- Trochlear: Intact Cranial Nerve V- Trigeminal: Intact Cranial Nerve - Abducens: Intact Cranial Nerve VII- Facial: Intact Cranial Nerve VIII- Auditory: Intact Cranial Nerve IX- Glossopharyngeal: Intact Cranial Nerve X- Vagus: Intact Cranial Nerve XI- Accessory: Intact Cranial Nerve XII- Hypoglossal: Intact Results CBC & Chem 7: 11/18/18 07:22 11/18/18 07:22 Labs: Abnormal Lab Results - Last 24 Hours (Table) 11/17/18 11/18/18 Range/Units 18:07 07:22 BUN 8 L (9-20) mg/dL Glucose 101 H (74-99) mg/dL Triglycerides 166 H (<150) mg/dL U Benzodiazepines Scrn Detected H (NotDetected) Assessment and Plan Assessment: Assessment and Plan 1. Headache: Possibly from withdrawal of opiates and benzodiazepines. He has no meningeal signs. Appears like tension headaches. Pain management with Tylenol and ibuprofen. I believe that patient would benefit from Fioricet, but will need to be started by Psychiatry. 2. Neck pain: Likely muscular strain from physical exam. Pain management with Tylenol, ibuprofen. Add Flexeril 10 mg 3 times a day as needed for muscle spasms. 3. Polysubstance use: History of opiate and benzodiazepine use. Smokes 2-3 packs per day. Continue nicotine patch 21 mg transdermal daily. Would add lozenges if okay by psychiatry. 4. Diarrhea: Appears noninfectious. Continue Lotrim as needed for diarrhea. 5. Suicidal ideations: Management as per psychiatry. Thank you for the consult. Please call with additional questions.
[2018-11-18] MEDS: CYCLOBENZAPRINE 10 MG TAB PO PRN (14:47)
[2018-11-18] MEDS: diphenhydrAMINE 50 MG CAP PO PRN (22:11)
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
[2018-11-19] MEDS: ACETAMINOPHEN TAB 325 MG TAB PO PRN (01:43)
[2018-11-19] MEDS: diphenhydrAMINE 50 MG CAP PO PRN ×4 (01:44→20:06)
[2018-11-19] MEDS: CYCLOBENZAPRINE 10 MG TAB PO PRN (01:44)
[2018-11-19] MEDS: NICOTINE 21MG/24HR PATCH TRANSDERM SCH (05:59)
[2018-11-19] MEDS: OLANZapine 5 MG TAB PO SCH (07:41)
[2018-11-19] MEDS: DIPHENOX-ATROP 2.5-0.025 MG 1 EACH TAB PO PRN ×2 (07:43→15:31)
[2018-11-19] MEDS ORDERED: OLANZapine 5 MG TAB PO SCH (09:00)
[2018-11-19] MEDS: IBUPROFEN 800 MG TAB PO SCH ×3 (12:04→20:03)
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
[2018-11-19] MEDS: OLANZapine 10 MG TAB PO SCH ×2 (15:16→20:04)
[2018-11-19] MEDS: MAG HYDROX/AL HYDROX/SIMETH 30 ML CUP PO PRN (15:31)
[2018-11-20] MEDS: ACETAMINOPHEN TAB 325 MG TAB PO PRN ×3 (04:26→20:10)
[2018-11-20] MEDS: OLANZapine 10 MG TAB PO SCH ×3 (07:56→20:41)
[2018-11-20] MEDS: IBUPROFEN 800 MG TAB PO SCH ×3 (07:56→21:12)
[2018-11-20] MEDS: NICOTINE 21MG/24HR PATCH TRANSDERM SCH (07:56)
[2018-11-20] MEDS: diphenhydrAMINE 50 MG CAP PO PRN ×3 (11:04→20:42)
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
[2018-11-20] MEDS: MAG HYDROX/AL HYDROX/SIMETH 30 ML CUP PO PRN (14:57)
[2018-11-20 20:47] VITALS: RESP 16
[2018-11-21] MEDS: MAG HYDROX/AL HYDROX/SIMETH 30 ML CUP PO PRN ×2 (01:23→16:57)
[2018-11-21] MEDS: NICOTINE 21MG/24HR PATCH TRANSDERM SCH (08:53)
[2018-11-21] MEDS: IBUPROFEN 800 MG TAB PO SCH ×3 (08:58→20:19)
[2018-11-21] MEDS: OLANZapine 10 MG TAB PO SCH ×3 (08:59→20:19)
[2018-11-21] MEDS: diphenhydrAMINE 50 MG CAP PO PRN ×2 (09:01→20:56)
[2018-11-21] MEDS: ACETAMINOPHEN TAB 325 MG TAB PO PRN (10:34)
[2018-11-21] MEDS: DIVALPROEX ER 500 MG TAB.ER.24H PO SCH ×3 (10:40→20:18)
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
[2018-11-22] MEDS: NICOTINE 21MG/24HR PATCH TRANSDERM SCH (07:44)
[2018-11-22] MEDS: IBUPROFEN 800 MG TAB PO SCH (07:45)
[2018-11-22] MEDS: OLANZapine 10 MG TAB PO SCH (07:45)
[2018-11-22] MEDS: DIVALPROEX ER 500 MG TAB.ER.24H PO SCH ×4 (07:45→20:08)
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
[2018-11-22] MEDS: ACETAMINOPHEN TAB 325 MG TAB PO PRN ×2 (10:21→20:09)
[2018-11-22] MEDS: diphenhydrAMINE 50 MG CAP PO PRN (12:00)
[2018-11-22] MEDS: MAG HYDROX/AL HYDROX/SIMETH 30 ML CUP PO PRN ×2 (12:00→21:24)
[2018-11-22] MEDS ORDERED: OLANZapine 10 MG TAB PO SCH (21:00)
[2018-11-23 07:16] VITALS: BP 115/55; PULSE 70; TEMP 97.5
[2018-11-23] MEDS: DIVALPROEX ER 500 MG TAB.ER.24H PO SCH (08:39)
[2018-11-23] MEDS: NICOTINE 21MG/24HR PATCH TRANSDERM SCH (08:39)
[2018-11-23] MEDS ORDERED: MELOXICAM 7.5 MG TAB PO SCH (09:00)
[2018-11-23] MEDS: MAG HYDROX/AL HYDROX/SIMETH 30 ML CUP PO PRN (09:30)
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
== END 2018-11-23 12:35 | disposition home or self-care (01) | DRG 885 ==
LOC: EC 17:35 → 3MHU 20:27
PROVIDERS: ADMIT Psychiatry & Neurology Psychiatry; ATTEND Psychiatry & Neurology Psychiatry
DX: F31.12 Bipolar disorder, current episode manic without psychotic features, moderate (principal); F10.239 Alcohol dependence with withdrawal, unspecified; F11.23 Opioid dependence with withdrawal; R45.851 Suicidal ideations; F13.239 Sedative, hypnotic or anxiolytic dependence with withdrawal, unspecified; F10.229 Alcohol dependence with intoxication, unspecified; F17.210 Nicotine dependence, cigarettes, uncomplicated; Z65.3 Problems related to other legal circumstances; F43.10 Post-traumatic stress disorder, unspecified; F80.81 Childhood onset fluency disorder; G89.29 Other chronic pain; M19.90 Unspecified osteoarthritis, unspecified site; S61.419A Laceration without foreign body of unspecified hand, initial encounter; S61.519A Laceration without foreign body of unspecified wrist, initial encounter; X78.1XXA Intentional self-harm by knife, initial encounter; Z87.820 Personal history of traumatic brain injury; M54.2 Cervicalgia; T43.96XA Underdosing of unspecified psychotropic drug, initial encounter; Z91.128 Patient's intentional underdosing of medication regimen for other reason; Z81.1 Family history of alcohol abuse and dependence; Z81.3 Family history of other psychoactive substance abuse and dependence; Z80.1 Family history of malignant neoplasm of trachea, bronchus and lung; Z88.8 Allergy status to other drugs, medicaments and biological substances
CPT/HCPCS: 80053; 80061; 80164; 80306; 82075; 82248; 83036; 84443; 85025; 96372; 99285

== ENCOUNTER 2019-01-29 09:49 | Emergency (ER) | payer OTHER ==
[2019-01-29 10:03] VITALS: RESP 18
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
[2019-01-29 10:52] LABS: Amphetamine Screen,Urine Not Detected (NotDetected); Barbiturate Screen,Urine Not Detected (NotDetected); Benzodiazepines Screen,Urine Not Detected (NotDetected); Cocaine Screen,Urine Not Detected (NotDetected); Methadone Screen, Urine Not Detected (NotDetected); Opiate Screen,Urine Not Detected (NotDetected); Oxycodone Screen, Urine Not Detected (NotDetected); Phencyclidine Screen,Urine Not Detected (NotDetected); Tricyclic Antidepressant,Urine Not Detected (NotDetected); Urn Cannabinoid Scrn Detected (NotDetected)
[2019-01-29 15:15] VITALS: BP 139/87; PULSE 84; TEMP 98.2
== END 2019-01-29 15:19 | disposition home or self-care (01) ==
LOC: EC 09:49
DX: F32.9 Major depressive disorder, single episode, unspecified (principal); R45.851 Suicidal ideations; F10.20 Alcohol dependence, uncomplicated; F17.200 Nicotine dependence, unspecified, uncomplicated; Z88.8 Allergy status to other drugs, medicaments and biological substances; Z79.899 Other long term (current) drug therapy
CPT/HCPCS: 80306; 82075; 99285

== ENCOUNTER 2019-03-04 14:16 | Emergency (ER) | payer OTHER ==
[2019-03-04] MEDS ORDERED: MAG HYDROX/AL HYDROX/SIMETH 30 ML, HYOSCYAMINE ELIXIR 10 ML, CIMETIDINE HCL 300 MG, LID... PO STA ×4 (15:01)
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
[2019-03-04 15:32] LABS: Basophils # (A) 0.1 k/uL (0-0.2); Basophils % (A) 1 %; Eosinophils # (A) 0.3 k/uL (0-0.7); Eosinophils % (A) 3 %; HGB 15.4 gm/dL (13.0-17.5); Lymphocytes # (A) 2.2 k/uL (1.0-4.8); Lymphocytes % (A) 17 %; MCH 30.4 pg (25.0-35.0); MCHC 33.4 g/dL (31.0-37.0); MCV 91.2 fL (80.0-100.0); Mean Platelet Volume 6.1; Monocytes # (A) 0.7 k/uL (0-1.0); Monocytes % (A) 5 %; Neutrophils # (A) 9.5 k/uL (1.3-7.7); Neutrophils % (A) 73 %; Platelet Count 281 k/uL (150-450); RBC 5.05 m/uL (4.30-5.90); RDW 12.8 % (11.5-15.5)
[2019-03-04 15:40] LABS: INR 0.9 (<1.2); Partial Thromboplastin Time 25.6 sec (22.0-30.0); Prothrombin Time 9.8 sec (9.0-12.0)
[2019-03-04 15:42] LABS: ALT 36 U/L (21-72); AST 23 U/L (17-59); Albumin 5.1 g/dL (3.5-5.0); Alkaline Phosphatase 125 U/L (38-126); Amylase 43 U/L (30-110); Anion Gap 10 mmol/L; Blood Urea Nitrogen 15 mg/dL (9-20); Calcium 10.1 mg/dL (8.4-10.2); Carbon Dioxide 28 mmol/L (22-30); Chloride 102 mmol/L (98-107); Creatine Kinase 137 U/L (55-170); Glucose 96 mg/dL (74-99); Lipase 88 U/L (23-300); Potassium 4.3 mmol/L (3.5-5.1); Sodium 140 mmol/L (137-145); Total Bilirubin 0.4 mg/dL (0.2-1.3); Total Protein 7.9 g/dL (6.3-8.2)
--- NOTE | 2019-03-04 16:12 | XR ---
EXAMINATION TYPE: XR abdomen 1V DATE OF EXAM: 03/04/2019 COMPARISON: NONE HISTORY: Left-sided pain TECHNIQUE: 2 views FINDINGS: 2 upright views were obtained and show no sign of intestinal obstruction or pneumoperitoneu m. Fecal pattern is normal. Lung bases are clear. There are no pathologic calcifications. IMPRESSION: Nonacute abdomen.
--- NOTE | 2019-03-04 16:12 | XR ---
EXAMINATION TYPE: XR chest 2V DATE OF EXAM: 03/04/2019 COMPARISON: NONE HISTORY: Chest pain TECHNIQUE: Frontal and lateral views of the chest are obtained. FINDINGS: Heart and mediastinum are normal. There are scattered tiny calcified granulomata in both l ungs. There is no pulmonary consolidation. There is no pleural effusion. Bony thorax is intact. IMPRESSION: Old granulomatous disease. No active cardiopulmonary disease.
[2019-03-04] MEDS ORDERED: METOCLOPRAMIDE 5 MG/ML 2 ML VIAL IVP STA (17:32)
[2019-03-04] MEDS ORDERED: SUCRALFATE 1 GM TAB PO STA (17:32)
[2019-03-04] MEDS ORDERED: FAMOTIDINE 20 MG/2 ML VIAL IV STA (17:32)
[2019-03-04 18:09] VITALS: BP 138/79; PULSE 78; RESP 16; TEMP 97.9
== END 2019-03-04 18:07 | disposition home or self-care (01) ==
LOC: EC 14:16
DX: K20.9 Esophagitis, unspecified (principal); F32.9 Major depressive disorder, single episode, unspecified; F17.200 Nicotine dependence, unspecified, uncomplicated; Z79.899 Other long term (current) drug therapy; Z88.8 Allergy status to other drugs, medicaments and biological substances
CPT/HCPCS: 36415; 93005; 80053; 82150; 82550; 83690; 83735; 84484; 85025; 85610; 85730; 71046; 74018; 99284; 96374; 96375; J2765

== ENCOUNTER 2019-07-04 21:46 | Emergency (ER) | payer OTHER ==
[2019-07-04 21:57] VITALS: TEMP 98.5
[2019-07-04] MEDS ORDERED: NICOTINE 14MG/24HR PATCH TRANSDERM STA (23:41)
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
--- NOTE | 2019-07-05 02:14 | CT ---
EXAM: CT Head Without Intravenous Contrast CLINICAL HISTORY: ITS.REASON CT Reason: Pain TECHNIQUE: Axial computed tomography images of the head/brain without intravenous contrast. CTDI is 49.1 mGy and DLP is 1229.4 mGy-cm. This CT exam was performed using one or more of the following dose reduction techniques: automated exposure control, adjustment of the mA and/or kV according to patient size, and/or use of iterative reconstruction technique. Coronal and sagittal reformatted images were created and reviewed. Axial reformatted images were created and reviewed. COMPARISON: No relevant prior studies available. FINDINGS: Brain: Unremarkable. No hemorrhage. No significant white matter disease. No edema. Ventricles: Unremarkable. No ventriculomegaly. Bones/joints: See below. Soft tissues: Unremarkable. Sinuses: Complete opacification of the right sphenoid sinus with bony sclerosis. Mild mucosal thickening of the bilateral ethmoid air cells and left sphenoid sinus. Mastoid air cells: Unremarkable as visualized. No mastoid effusion. IMPRESSION: Complete opacification of the right sphenoid sinus with bony sclerosis. No acute intracranial abnormality.
[2019-07-05 04:24] VITALS: RESP 16
[2019-07-05 05:22] VITALS: BP 124/74; PULSE 56
== END 2019-07-05 05:22 | disposition home or self-care (01) ==
LOC: EC 21:46
DX: F10.129 Alcohol abuse with intoxication, unspecified (principal); F41.9 Anxiety disorder, unspecified; F32.9 Major depressive disorder, single episode, unspecified; F17.200 Nicotine dependence, unspecified, uncomplicated; Z79.899 Other long term (current) drug therapy; Z88.8 Allergy status to other drugs, medicaments and biological substances
CPT/HCPCS: 82075; 70450; 99284; S4990

== ENCOUNTER 2020-03-12 17:35 | Emergency (ER) | payer OTHER ==
[2020-03-12] MEDS ORDERED: NALOXONE 0.4 MG/ML 1 ML VIAL IV STA ×2 (17:42→17:50)
[2020-03-12] MEDS ORDERED: SODIUM CHLORIDE 0.9% 500 ML 500 ML IV STA (17:50)
[2020-03-12 17:54] VITALS: RESP 18
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
[2020-03-12 18:13] LABS: ALT 19 U/L (4-49); AST 33 U/L (17-59); Acetaminophen <10.0 ug/mL; African American GFR (CKD) >90 (>60 ml/min/1.73 sqM); Albumin 4.3 g/dL (3.5-5.0); Alcohol <10 mg/dL; Alkaline Phosphatase 89 U/L (38-126); Anion Gap 12 mmol/L; Blood Urea Nitrogen 11 mg/dL (9-20); Calcium 8.9 mg/dL (8.4-10.2); Carbon Dioxide 22 mmol/L (22-30); Chloride 102 mmol/L (98-107); Glucose 237 mg/dL (74-99); Non-African American GFR(CKD) 81 (>60 ml/min/1.73 sqM); Potassium 3.7 mmol/L (3.5-5.1); Salicylate <1.0 mg/dL; Sodium 136 mmol/L (137-145); Total Bilirubin 0.3 mg/dL (0.2-1.3); Total Protein 6.8 g/dL (6.3-8.2)
[2020-03-12 18:14] LABS: Basophils # (A) 0.2 k/uL (0-0.2); Basophils % (A) 1 %; Eosinophils # (A) 0.5 k/uL (0-0.7); Eosinophils % (A) 2 %; HCT 42.8 % (39.0-53.0); HGB 13.7 gm/dL (13.0-17.5); Lymphocytes # (A) 5.4 k/uL (1.0-4.8); Lymphocytes % (A) 22 %; MCH 29.8 pg (25.0-35.0); MCHC 32.1 g/dL (31.0-37.0); MCV 92.7 fL (80.0-100.0); Mean Platelet Volume 6.9; Monocytes # (A) 1.2 k/uL (0-1.0); Monocytes % (A) 5 %; Neutrophils # (A) 16.7 k/uL (1.3-7.7); Neutrophils % (A) 68 %; Platelet Count 465 k/uL (150-450); RBC 4.61 m/uL (4.30-5.90); RDW 13.4 % (11.5-15.5); WBC 24.5 k/uL (3.8-10.6)
[2020-03-12 18:46] VITALS: BP 126/74; PULSE 88; TEMP 98
[2020-03-12 18:59] LABS: Amphetamine Screen,Urine Not Detected (NotDetected); Barbiturate Screen,Urine Not Detected (NotDetected); Benzodiazepines Screen,Urine Detected (NotDetected); Cocaine Screen,Urine Not Detected (NotDetected); Methadone Screen, Urine Not Detected (NotDetected); Opiate Screen,Urine Not Detected (NotDetected); Oxycodone Screen, Urine Not Detected (NotDetected); Phencyclidine Screen,Urine Not Detected (NotDetected); Tricyclic Antidepressant,Urine Not Detected (NotDetected); Urn Cannabinoid Scrn Not Detected (NotDetected)
== END 2020-03-12 18:59 | disposition left against medical advice (07) ==
LOC: EC 17:35
DX: T40.1X1A Poisoning by heroin, accidental (unintentional), initial encounter (principal); T42.4X1A Poisoning by benzodiazepines, accidental (unintentional), initial encounter; F32.9 Major depressive disorder, single episode, unspecified; F17.200 Nicotine dependence, unspecified, uncomplicated; Z79.899 Other long term (current) drug therapy; Z88.8 Allergy status to other drugs, medicaments and biological substances; Z87.820 Personal history of traumatic brain injury
CPT/HCPCS: 36415; 93005; 80053; 84484; 85025; 80306; 83520; 99285; 96374; 96361; G0480 ×2; J2310; 80320; 80329

== ENCOUNTER 2021-02-03 13:01 | Inpatient (IN) | payer MEDICAID, OTHER ==
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
[2021-02-03 14:40] LABS: Cocaine Screen,Urine Not Detected (NotDetected); Phencyclidine Screen,Urine Not Detected (NotDetected); Urn Cannabinoid Scrn Not Detected (NotDetected)
[2021-02-03 14:41] LABS: Amphetamine Screen,Urine Detected (NotDetected); Barbiturate Screen,Urine Detected (NotDetected); Benzodiazepines Screen,Urine Detected (NotDetected); Methadone Screen, Urine Not Detected (NotDetected); Opiate Screen,Urine Not Detected (NotDetected); Oxycodone Screen, Urine Not Detected (NotDetected); Tricyclic Antidepressant,Urine Detected (NotDetected)
[2021-02-03] MEDS ORDERED: NICOTINE 21MG/24HR PATCH TRANSDERM STA (15:48)
[2021-02-03] MEDS ORDERED: ZIPRASIDONE 20 MG VIAL IM STA (15:48)
[2021-02-03] MEDS ORDERED: IBUPROFEN 200 MG TAB PO PRN (16:44)
[2021-02-03] MEDS ORDERED: MAGNESIUM HYDROXIDE 2,400 MG/10 ML CUP PO PRN (16:45)
[2021-02-03] MEDS ORDERED: MAG HYDROX/AL HYDROX/SIMETH 30 ML CUP PO PRN (16:45)
[2021-02-03] MEDS ORDERED: ZIPRASIDONE 20 MG VIAL IM PRN (16:45)
[2021-02-03] MEDS ORDERED: ACETAMINOPHEN TAB 325 MG TAB PO PRN (16:45)
[2021-02-03] MEDS ORDERED: LORazepam 2 MG/ML INJ IM PRN (16:46)
[2021-02-03] MEDS ORDERED: PANTOPRAZOLE 40 MG TABLET PO PRN (16:52)
[2021-02-03 17:46] VITALS: BP 122/67; PULSE 97; RESP 14; TEMP 97.9
[2021-02-03] MEDS ORDERED: QUEtiapine 50 MG TAB PO SCH (21:00)
[2021-02-03] MEDS ORDERED: QUEtiapine 100 MG TAB PO SCH (21:00)
[2021-02-03] MEDS: LORazepam 1 MG TAB PO PRN (21:32)
[2021-02-03] MEDS: OXcarbazepine 150 MG TAB PO SCH (21:33)
[2021-02-04] MEDS: OXcarbazepine 150 MG TAB PO SCH ×2 (08:25→21:05)
[2021-02-04] MEDS: CITALOPRAM HYDROBROMIDE 20 MG TAB PO SCH (08:25)
[2021-02-04] MEDS: LORazepam 1 MG TAB PO PRN ×3 (08:26→21:05)
[2021-02-04] MEDS: NICOTINE 21MG/24HR PATCH TRANSDERM SCH (08:44)
[2021-02-04] MEDS ORDERED: NICOTINE 14MG/24HR PATCH TRANSDERM SCH (09:00)
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
[2021-02-04] MEDS ORDERED: QUEtiapine 200 MG TAB PO SCH (21:00)
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
[2021-02-05] MEDS: NICOTINE 21MG/24HR PATCH TRANSDERM SCH (08:21)
[2021-02-05] MEDS: OXcarbazepine 150 MG TAB PO SCH (08:22)
[2021-02-05] MEDS: CITALOPRAM HYDROBROMIDE 20 MG TAB PO SCH (08:22)
[2021-02-05] MEDS: LORazepam 1 MG TAB PO PRN (08:22)
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
== END 2021-02-05 12:27 | disposition home or self-care (01) | DRG 885 ==
LOC: EC 13:01 → 3MHU 16:37
PROVIDERS: ADMIT Psychiatry & Neurology Psychiatry; ATTEND Psychiatry & Neurology Psychiatry
DX: F33.9 Major depressive disorder, recurrent, unspecified (principal); R45.851 Suicidal ideations; F15.10 Other stimulant abuse, uncomplicated; F13.10 Sedative, hypnotic or anxiolytic abuse, uncomplicated; Z20.822 Contact with and (suspected) exposure to COVID-19; F12.90 Cannabis use, unspecified, uncomplicated; F41.1 Generalized anxiety disorder; F60.2 Antisocial personality disorder; F41.0 Panic disorder [episodic paroxysmal anxiety]; R45.87 Impulsiveness; F17.210 Nicotine dependence, cigarettes, uncomplicated; Z71.6 Tobacco abuse counseling; Z79.899 Other long term (current) drug therapy; Z65.3 Problems related to other legal circumstances; Z91.410 Personal history of adult physical and sexual abuse; Z91.411 Personal history of adult psychological abuse; Z87.820 Personal history of traumatic brain injury; Z90.89 Acquired absence of other organs; Z98.890 Other specified postprocedural states; Z88.8 Allergy status to other drugs, medicaments and biological substances; Z80.1 Family history of malignant neoplasm of trachea, bronchus and lung; Z80.8 Family history of malignant neoplasm of other organs or systems; Z81.1 Family history of alcohol abuse and dependence; Z81.3 Family history of other psychoactive substance abuse and dependence
CPT/HCPCS: 80306; 82075; 87635; 96372; 99284; 99285

== ENCOUNTER 2021-05-10 19:42 | Emergency (ER) | payer OTHER ==
[2021-05-10 20:07] VITALS: RESP 18; TEMP 98
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
[2021-05-10] MEDS ORDERED: CITALOPRAM HYDROBROMIDE 20 MG TAB PO STA (21:39)
[2021-05-10] MEDS ORDERED: QUEtiapine 200 MG TAB PO STA (21:40)
[2021-05-10] MEDS ORDERED: OXcarbazepine 300 MG TAB PO STA (21:40)
[2021-05-11 01:13] LABS: Amphetamine Screen,Urine Not Detected (NotDetected); Barbiturate Screen,Urine Not Detected (NotDetected); Benzodiazepines Screen,Urine Not Detected (NotDetected); Cocaine Screen,Urine Detected (NotDetected); Methadone Screen, Urine Not Detected (NotDetected); Opiate Screen,Urine Not Detected (NotDetected); Oxycodone Screen, Urine Not Detected (NotDetected); Phencyclidine Screen,Urine Not Detected (NotDetected); Tricyclic Antidepressant,Urine Detected (NotDetected); Urn Cannabinoid Scrn Not Detected (NotDetected)
[2021-05-11 05:58] VITALS: BP 134/84; PULSE 77
== END 2021-05-11 05:58 | disposition home or self-care (01) ==
LOC: EC 19:42
DX: F10.129 Alcohol abuse with intoxication, unspecified (principal); R45.851 Suicidal ideations; F32.9 Major depressive disorder, single episode, unspecified; F41.9 Anxiety disorder, unspecified; F14.90 Cocaine use, unspecified, uncomplicated; F15.90 Other stimulant use, unspecified, uncomplicated; F17.200 Nicotine dependence, unspecified, uncomplicated; Z59.0 Homelessness; Y90.9 Presence of alcohol in blood, level not specified
CPT/HCPCS: 80306; 82075; 99285

== ENCOUNTER 2021-05-14 19:09 | Emergency (ER) | payer OTHER ==
[2021-05-14] MEDS ORDERED: ONDANSETRON 4 MG/2 ML VIAL IVP STA (19:18)
[2021-05-14] MEDS ORDERED: IPRATROPIUM-ALBUTEROL 3 ML NEB INHALATION STA (19:18)
[2021-05-14 19:30] VITALS: TEMP 98.1
--- NOTE | 2021-05-14 19:38 | ED ---
Overdose HPI - General Stated Complaint: Overdose Time Seen by Provider: 05/14/21 19:12 Source: EMS Mode of arrival: EMS Limitations: no limitations - History of Present Illness Initial Comments: Is a 40-year-old male with a history of alcohol and heroin abuse who presents emergent department for overdose. The patient states he drank 3 large beers today and snorted 2 lines of heroin. The patient reportedly went unresponsive at his jaxson's house and had agonal respirations. The fire department was called and arrived and was performing rescue breathing on him. He was given a total of 2 mg intranasal Narcan and then he became responsive. The patient currently denies any complaints. Just states that he is extremely thirsty. He did have a little bit of nausea and vomiting in route however this has resolved. The patient was noted to have episodes of hypoxia and route however the patient relates this to his history of heavy smoking. He otherwise denies any other co mplaints. - Related Data Home Medications Medication Instructions Recorded Confirmed OXcarbazepine [Trileptal] 300 mg PO HS 05/10/21 05/14/21 Previous Rx's Medication Instructions Recorded Citalopram Hydrobromide [CeleXA] 20 mg PO DAILY 30 Days tab 02/05/21 QUEtiapine [SEROquel] 200 mg PO HS 30 Days tab 02/05/21 Allergies Allergy/AdvReac Type Severity Reaction Status Date / Time fluphenazine HCl Allergy Swelling Verified 05/14/21 20:52 [From Prolixin] haloperidol lactate Allergy Swelling Verified 05/14/21 20:52 [From Haldol] olanzapine [From Zyprexa] Allergy Swelling Verified 05/14/21 20:52 Review of Systems ROS Statement: Those systems with pertinent positive or pertinent negative responses have been documented in the HPI. ROS Other: All systems not noted in ROS Statement are negative. Past Medical History Past Medical History: No Reported History Additional Past Medical History / Comment(s): Head Injury at 12 years old; in a coma x1 month. psychiatric problems History of Any Multi-Drug Resistant Organisms: None Reported Past Surgical History: Adenoidectomy, Tonsillectomy Additional Past Surgical History / Comment(s): Stitches in arms and legs "at different times" Past Anesthesia/Blood Transfusion Reactions: No Reported Reaction Past Psychological History: Anxiety, Depression Smoking Status: Current every day smoker, Heavy tobacco smoker Past Alcohol Use History: Abuse Past Drug Use History: Cocaine, Heroin, Methamphetamine, Prescription Drug Abuse - Past Family History Mother Family Medical History: Cancer Additional Family Medical History / Comment(s): Other at age 58 from cancer to the lung and brain Father Additional Family Medical History / Comment(s): Father at age 46 from motor vehicle accident. He was alcoholic. Brother(s) Additional Family Medical History / Comment(s): Patient has 1 brother addicted to pain pills. He does not have any sisters. He does not have any children. General Exam - General Exam Comments Initial Comments: Constitutional: Awake alert Appears comfortable Head: Normocephalic atraumatic Eyes: no conjunctival injection No scleral icterus EOMI Neck: No JVD Supple Heart: Regular rate rhythm normal S1-S2 no murmurs Lungs: Breath sounds bilaterally with expiratory wheezes No rales Abdomen: Soft nondistended nontender Extremities: Non edematous DP pulses intact Radial pulses intact Neuro: A&Ox3, the patient does appear somewhat intoxicated still No focal neurologic deficits Psych: Appropriate mood and affect Limitations: no limitations Course Vital Signs 05/14/21 05/14/21 05/14/21 19:26 20:19 20:29 Temperature 98.1 F Pulse Rate 105 H 100 104 H Respiratory 18 Rate Blood Pressure 153/91 O2 Sat by Pulse 96 Oximetry 05/14/21 21:36 Temperature Pulse Rate 111 H Respiratory 16 Rate Blood Pressure 162/93 O2 Sat by Pulse 93 L Oximetry Medical Decision Making - Medical Decision Making This 40-year-old male who presents emergency department for heroin overdose. P atient was back to baseline when he got to the emergency department. He complained of little bit of a dry throat and in thirsty however most of his symptoms had resolved. The patient was monitored here and chest x-ray was performed. He was given a breathing treatment. Labwork was performed and u nremarkable. The patient was requesting to go home area the patient was awake and alert and ambulatory throughout the room. I had a discussion with him he states she's can go to his friend's house who lives a couple blocks down the street. He states is getting to walk home. My opinion the patient was done shooting sobriety. He been monitored for over an hour and I do not feel that the effects of heroin are going to cause any further respiratory depression. The patient was requesting to be discharged. I told him to return patient rechecks and was [place] tomorrow which was his plan. Return emergency Department if he has any concerns. All questions answered. - Lab Data Result diagrams: 05/14/21 19:56 05/14/21 19:56 Lab Results 05/14/21 05/14/21 05/14/21 Range/Units 19:18 19:56 19:56 WBC 9.6 (3.8-10.6) k/uL RBC 4.38 (4.30-5.90) m/uL Hgb 13.4 (13.0-17.5) gm/dL Hct 39.3 (39.0-53.0) % MCV 89.7 (80.0-100.0) fL MCH 30.5 (25.0-35.0) pg MCHC 34.0 (31.0-37.0) g/dL RDW 13.1 (11.5-15.5) % Plt Count 241 (150-450) k/uL MPV 6.5 Neutrophils % 71 % Lymphocytes % 19 % Monocytes % 5 % Eosinophils % 3 % Basophils % 1 % Neutrophils # 6.8 (1.3-7.7) k/uL Lymphocytes # 1.8 (1.0-4.8) k/uL Monocytes # 0.5 (0-1.0) k/uL Eosinophils # 0.3 (0-0.7) k/uL Basophils # 0.1 (0-0.2) k/uL Sodium 142 (137-145) mmol/L Potassium 3.8 (3.5-5.1) mmol/L Chloride 107 (98-107) mmol/L Carbon Dioxide 22 (22-30) mmol/L Anion Gap 13 mmol/L BUN 9 (9-20) mg/dL Creatinine 0.80 (0.66-1.25) mg/dL Est GFR (CKD-EPI)AfAm >90 (>60 ml/min/1.73 sqM) Est GFR (CKD-EPI)NonAf >90 (>60 ml/min/1.73 sqM) Glucose 140 H (74-99) mg/dL Calcium 8.7 (8.4-10.2) mg/dL Urine Opiates Screen Not Detected (NotDetected) Ur Oxycodone Screen Not Detected (NotDetected) Urine Methadone Screen Not Detected (NotDetected) Ur Propoxyphene Screen Not Detected (NotDetected) Ur Barbiturates Screen Not Detected (NotDetected) U Tricyclic Antidepress Detected H (NotDetected) Ur Phencyclidine Scrn Not Detected (NotDetected) Ur Amphetamines Screen Not Detected (NotDetected) U Methamphetamines Scrn Not Detected (NotDetected) U Benzodiazepines Scrn Not Detected (NotDetected) Urine Cocaine Screen Detected H (NotDetected) U Marijuana (THC) Screen Detected H (NotDetected) Disposition Clinical Impression: Heroin overdose Disposition: HOME SELF-CARE Condition: Stable Instructions (If sedation given, give patient instructions): Adult Overdose (ED) Is patient prescribed a controlled substance at d/c from ED?: No Referrals: Zakia East MD [Primary Care Provider] - 1-2 days
[2021-05-14 19:59] LABS: Basophils # (A) 0.1 k/uL (0-0.2); Basophils % (A) 1 %; Eosinophils # (A) 0.3 k/uL (0-0.7); Eosinophils % (A) 3 %; HCT 39.3 % (39.0-53.0); HGB 13.4 gm/dL (13.0-17.5); Lymphocytes # (A) 1.8 k/uL (1.0-4.8); Lymphocytes % (A) 19 %; MCH 30.5 pg (25.0-35.0); MCV 89.7 fL (80.0-100.0); Mean Platelet Volume 6.5; Monocytes # (A) 0.5 k/uL (0-1.0); Monocytes % (A) 5 %; Neutrophils # (A) 6.8 k/uL (1.3-7.7); Neutrophils % (A) 71 %; Platelet Count 241 k/uL (150-450); RBC 4.38 m/uL (4.30-5.90); RDW 13.1 % (11.5-15.5); WBC 9.6 k/uL (3.8-10.6)
--- NOTE | 2021-05-14 20:00 | XR ---
EXAMINATION: XR chest 1V portable DATE AND TIME: 05/14/2021 7:56 PM CLINICAL INDICATION: PHH; sob TECHNIQUE: AP upright portable COMPARISON: 03/04/2019 FINDINGS: The lungs are clear. The pleural spaces are negative. The cardiac silhouette is not enlarged. The remainder of the mediastinal silhouette is unremarkable. The skeletal structures and soft tissues are negative for acute findings. IMPRESSION: NO ACUTE PROCESS.
[2021-05-14 20:09] LABS: Potassium 3.8 mmol/L (3.5-5.1)
[2021-05-14 20:10] LABS: African American GFR (CKD) >90 (>60 ml/min/1.73 sqM); Anion Gap 13 mmol/L; Blood Urea Nitrogen 9 mg/dL (9-20); Calcium 8.7 mg/dL (8.4-10.2); Carbon Dioxide 22 mmol/L (22-30); Chloride 107 mmol/L (98-107); Glucose 140 mg/dL (74-99); Non-African American GFR(CKD) >90 (>60 ml/min/1.73 sqM); Sodium 142 mmol/L (137-145)
[2021-05-14 21:37] VITALS: BP 162/93; PULSE 111; RESP 16
[2021-05-14 22:04] LABS: Amphetamine Screen,Urine Not Detected (NotDetected); Barbiturate Screen,Urine Not Detected (NotDetected); Benzodiazepines Screen,Urine Not Detected (NotDetected); Cocaine Screen,Urine Detected (NotDetected); Methadone Screen, Urine Not Detected (NotDetected); Opiate Screen,Urine Not Detected (NotDetected); Oxycodone Screen, Urine Not Detected (NotDetected); Phencyclidine Screen,Urine Not Detected (NotDetected); Tricyclic Antidepressant,Urine Detected (NotDetected); Urn Cannabinoid Scrn Detected (NotDetected)
== END 2021-05-14 21:57 | disposition home or self-care (01) ==
LOC: EC 19:09
DX: T40.1X1A Poisoning by heroin, accidental (unintentional), initial encounter (principal); F32.9 Major depressive disorder, single episode, unspecified; F41.9 Anxiety disorder, unspecified; F17.200 Nicotine dependence, unspecified, uncomplicated; F14.90 Cocaine use, unspecified, uncomplicated; F15.90 Other stimulant use, unspecified, uncomplicated; Z80.1 Family history of malignant neoplasm of trachea, bronchus and lung; Z88.8 Allergy status to other drugs, medicaments and biological substances
CPT/HCPCS: 36415; 94640; 80048; 85025; 80306; 71045; 96374; 99284; J2405

== ENCOUNTER 2021-07-25 19:17 | Inpatient (IN) | payer MEDICAID, OTHER ==
[2021-07-25] MEDS ORDERED: NICOTINE 21MG/24HR PATCH TRANSDERM STA (19:36)
--- NOTE | 2021-07-25 19:37 | ED ---
Psych HPI - General Chief Complaint: Psychiatric Symptoms Stated Complaint: Mental Health Time Seen by Provider: 07/25/21 19:27 Source: patient Mode of arrival: ambulatory - History of Present Illness Initial Comments: 41-year-old male patient presents to the emergency department today for evaluation of suicidal ideation. States he is not feeling right and has had. States he has been out of his psychiatric medications for the last 2 weeks. States that his clinician at [facility] has been urging him to contact the crisis line. Patient states he was not ready to be admitted but he has now. States that he does not have rash all spots. Does have a plan to take his life but he will not discuss it. Denies ever attempting suicide in the past. Has had previous mental health admissions. States he did drink alcohol earlier in the day. States he used street drugs a couple of days ago. He denies any current physical symptoms or concerns. Denies any hallucinations. Denies homicidal ideation. - Related Data Home Medications Medication Instructions Recorded Confirmed OXcarbazepine [Trileptal] 300 mg PO HS 05/10/21 05/14/21 Previous Rx's Medication Instructions Recorded Citalopram Hydrobromide [CeleXA] 20 mg PO DAILY 30 Days tab 02/05/21 QUEtiapine [SEROquel] 200 mg PO HS 30 Days tab 02/05/21 Allergies Allergy/AdvReac Type Severity Reaction Status Date / Time fluphenazine HCl Allergy Swelling Verified 07/25/21 19:21 [From Prolixin] haloperidol lactate Allergy Swelling Verified 07/25/21 19:21 [From Haldol] olanzapine [From Zyprexa] Allergy Swelling Verified 07/25/21 19:21 Review of Systems ROS Statement: Those systems with pertinent positive or pertinent negative responses have been documented in the HPI. ROS Other: All systems not noted in ROS Statement are negative. Past Medical History Past Medical History: No Reported History Additional Past Medical History / Comment(s): Head Injury at 12 years old; in a coma x1 month. psychiatric problems History of Any Multi-Drug Resistant Organisms: None Reported Past Surgical History: Adenoidectomy, Tonsillectomy Additional Past Surgical History / Comment(s): Stitches in arms and legs "at different times" Past Anesthesia/Blood Transfusion Reactions: No Reported Reaction Past Psychological History: Anxiety, Depression Smoking Status: Current every day smoker, Heavy tobacco smoker Past Alcohol Use History: Abuse Past Drug Use History: Cocaine, Heroin, Marijuana, Methamphetamine, Prescription Drug Abuse - Past Family History Mother Family Medical History: Cancer Additional Family Medical History / Comment(s): Other at age 58 from cancer to the lung and brain Father Additional Family Medical History / Comment(s): Father at age 46 from motor vehicle accident. He was alcoholic. Brother(s) Additional Family Medical History / Comment(s): Patient has 1 brother addicted to pain pills. He does not have any sisters. He does not have any children. General Exam Limitations: no limitations General appearance: alert, in no apparent distress, other (This is a well- developed, well-nourished adult male patient in no acute distress. Vital signs upon presentation are temperature 98.3F, pulse 96, respirations 18, blood pressure 128/72, pulse ox 94% on room air.) ENT exam: Present: normal exam, normal oropharynx, mucous membranes moist Respiratory exam: Present: normal lung sounds bilaterally. Absent: respiratory distress, wheezes, rales, rhonchi, stridor Cardiovascular Exam: Present: regular rate, normal rhythm, normal heart sounds. Absent: systolic murmur, diastolic murmur, rubs, gallop, clicks GI/Abdominal exam: Present: soft, normal bowel sounds. Absent: distended, tenderness, guarding, rebound, rigid Psychiatric exam: Present: anxious, suicidal ideation. Absent: homicidal ideation Skin exam: Present: warm, dry, intact, normal color. Absent: rash Course Vital Signs 07/25/21 19:21 Temperature 98.3 F Pulse Rate 96 Respiratory 18 Rate Blood Pressure 128/72 O2 Sat by Pulse 94 L Oximetry Medical Decision Making - Medical Decision Making 41-year-old male patient presents to the emergency department for psychiatric evaluation. Reports suicidal ideation and scattered thoughts. Has not been on his medication for the last two weeks. He was cleared medically. Seen and evaluated by emergency psychiatric services. He'll be admitted to the mental health in for further evaluation and treatment. He is agreeable this plan and did sign in voluntarily. My attending is Dr. Vidal. - Lab Data Lab Results 07/25/21 Range/Units 19:40 Urine Opiates Screen Not Detected (NotDetected) Ur Oxycodone Screen Not Detected (NotDetected) Urine Methadone Screen Not Detected (NotDetected) Ur Propoxyphene Screen Not Detected (NotDetected) Ur Barbiturates Screen Not Detected (NotDetected) U Tricyclic Antidepress Not Detected (NotDetected) Ur Phencyclidine Scrn Not Detected (NotDetected) Ur Amphetamines Screen Not Detected (NotDetected) U Methamphetamines Scrn Not Detected (NotDetected) U Benzodiazepines Scrn Not Detected (NotDetected) Urine Cocaine Screen Detected H (NotDetected) U Marijuana (THC) Screen Detected H (NotDetected) Disposition Clinical Impression: Suicidal ideation Disposition: TRANSFER TO PSYCH HOSP/UNIT Condition: Serious Referrals: Zakia East MD [Primary Care Provider] - 1-2 days - Out of Hospital Transfer - Req. Specs Out of Hospital Transfer - Requested Specifics: Psychiatric Non-ICU ([facility])
[2021-07-25 20:19] LABS: Amphetamine Screen,Urine Not Detected (NotDetected); Barbiturate Screen,Urine Not Detected (NotDetected); Benzodiazepines Screen,Urine Not Detected (NotDetected); Cocaine Screen,Urine Detected (NotDetected); Methadone Screen, Urine Not Detected (NotDetected); Opiate Screen,Urine Not Detected (NotDetected); Oxycodone Screen, Urine Not Detected (NotDetected); Phencyclidine Screen,Urine Not Detected (NotDetected); Tricyclic Antidepressant,Urine Not Detected (NotDetected); Urn Cannabinoid Scrn Detected (NotDetected)
[2021-07-25] MEDS ORDERED: LORazepam 2 MG/ML INJ IM STA (21:24)
[2021-07-25] MEDS ORDERED: MAG HYDROX/AL HYDROX/SIMETH 30 ML CUP PO PRN (21:51)
[2021-07-25] MEDS ORDERED: MAGNESIUM HYDROXIDE 2,400 MG/10 ML CUP PO PRN (21:51)
[2021-07-25] MEDS ORDERED: LORazepam 2 MG/ML INJ IM PRN (21:55)
[2021-07-25] MEDS ORDERED: HALOPERIDOL LACTATE 5 MG/ML 1 ML VIAL IM PRN (21:56)
[2021-07-25] MEDS ORDERED: haloperidoL 5 MG TAB PO PRN (21:57)
[2021-07-25] MEDS ORDERED: QUEtiapine 200 MG TAB PO ONE (22:30)
[2021-07-26 07:47] LABS: Basophils # (A) 0.1 k/uL (0-0.2); Basophils % (A) 1 %; Eosinophils # (A) 0.3 k/uL (0-0.7); Eosinophils % (A) 4 %; HCT 43.5 % (39.0-53.0); HGB 14.8 gm/dL (13.0-17.5); Lymphocytes # (A) 2.9 k/uL (1.0-4.8); Lymphocytes % (A) 39 %; MCH 31.7 pg (25.0-35.0); MCV 93.1 fL (80.0-100.0); Mean Platelet Volume 6.7; Monocytes # (A) 0.4 k/uL (0-1.0); Monocytes % (A) 6 %; Neutrophils # (A) 3.6 k/uL (1.3-7.7); Neutrophils % (A) 48 %; Platelet Count 246 k/uL (150-450); RBC 4.68 m/uL (4.30-5.90); RDW 15.5 % (11.5-15.5); WBC 7.5 k/uL (3.8-10.6)
[2021-07-26 07:57] LABS: Carbon Dioxide 28 mmol/L (22-30); Chloride 104 mmol/L (98-107); Glucose 96 mg/dL (74-99); Potassium 4.4 mmol/L (3.5-5.1); Sodium 140 mmol/L (137-145)
[2021-07-26 07:58] LABS: ALT 38 U/L (4-49); AST 36 U/L (17-59); African American GFR (CKD) >90 (>60 ml/min/1.73 sqM); Alkaline Phosphatase 103 U/L (38-126); Anion Gap 8 mmol/L; Blood Urea Nitrogen 9 mg/dL (9-20); Calcium 9.6 mg/dL (8.4-10.2); Non-African American GFR(CKD) >90 (>60 ml/min/1.73 sqM); Total Bilirubin 0.3 mg/dL (0.2-1.3); Total Protein 6.3 g/dL (6.3-8.2)
[2021-07-26] MEDS: NICOTINE 21MG/24HR PATCH TRANSDERM SCH (08:21)
[2021-07-26] MEDS: LORazepam 1 MG TAB PO PRN ×2 (08:22→15:13)
[2021-07-26] MEDS: CITALOPRAM HYDROBROMIDE 10 MG TAB PO SCH (08:24)
--- NOTE | 2021-07-26 08:56 | P.HP ---
Psychiatric H&P - . H&P Date: 07/26/21 History & Physical: IDENTIFYING DATA: Erik is a homeless 41-year-old male admitted to the psychiatric unit voluntarily with complaints of depression and suicidal ideation HISTORY OF PRESENT ILLNESS: This is a difficult interview because he was m arkedly irritable and only minimally cooperative. He is known to this psychiatric unit from prior admissions. His last discharged in January 2021 with the diagnoses of major depressive disorder, generalized anxiety disorder, methamphetamine use disorder, antisocial personality disorder and tobacco use disorder. 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 He stated that he "broke up" with his girlfriend 1 month ago and since has been homeless. He alleged that he was "sleeping on the streets." He became angry when I asked specific questions about his living situation such as where he was sleeping, had he been to the prison and whether he is reached out to friends or family. He alleged that he went to the prison but "they were full." He talked about "sleeping behind bushes." He alleged has no income (prior records indicate that he has SSI benefits) and talked as though friends and family have distanced themselves from him. Since he has been homeless he became progressively more depressed, hopeless and helpless. He talked about struggling with thoughts of suicide but denied that he had attempted suicide. He became angry when I mentioned the [facility] nurse had told me that he had recently attentionally overdosed on heroin as a suicide attempt. He angrily responded to that that was not true. He denied use of drugs with the exception of alcohol. His breath alcohol level on presentation to ED was 0.34. He denied use of drugs including heroin. However, his UDS was positive for cocaine and marijuana. He denied experiencing such psychotic symptoms as hallucinations, confusion or paranoia. PAST PSYCHIATRIC HISTORY: According to the medical record, has had multiple psychiatric hospitalizations including 6 to this psychiatric unit. We last di scharged in January 2021 with the recommendation to continue with community mental health. He alleged that he is involved with [facility] but "missed her last appointment." He reported his outpatient medications to be Seroquel, citalopram, clonidine and gabapentin. PAST MEDICAL HISTORY: According to medical record he has a history of head trauma but no major medical problems. ALLERGIES: He reports that he is ALLERGIES to fluphenazine, haloperidol olanzapine whenever I suspect that these are not true ALLERGIC reactions rather he may have experienced adverse reactions. SUBSTANCE USE HISTORY: He would not talk about his substance use history. He angrily asked me why was that important. The medical record indicates a history of alcohol abuse disorder, methamphetamine use disorder, cocaine use disorder, opiate use disorder, and benzodiazepine use. He is had multiple presentations to the ED for substance use and one admission to the ED and May 11 for a heroin overdose. FAMILY PSYCHIATRIC/SUBSTANCE USE HISTORY: He would not talk about his family history. Medical record describes a history of alcohol use, anger management issues and anxiety in his family LEGAL HISTORY: He is not on probation, parole or has pending charges. 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 He questioned the need for this information. According to past records she was born in [place] and moved to [place] 9 years ago. He was living with a girlfriend until one month ago and has since been homeless. He is unemployed and alleges he has no income. However, record indicates that he receives Social Security income. MENTAL STATUS EXAM: He presented as a thin casually groomed 40-year-old male with graying hair. He intermittently made eye contact. He is minimally cooperative with the interview but appeared to attend to the exam. He had no distinction features are prominent physical abnormalities. He had a irritable facial expression. He is alert and oriented to person, place and time. He had no abnormality of psychomotor activity. He has slow but steady gait. His speech was spontaneous and consistent with his mood. His affect was irritable, angry and at times intense and appropriate. He expressed suicidal ideation and wishes. She denied homicidal ideation. He similarly express feelings of hopelessness, helplessness and worthlessness. He ruminated on his homeless situation and separation from his girlfriend who apparently will not allow him to see their child. He did not express ideas reference, paranoid ideation or delusions. His thinking was concrete but his associations were c oherent and logical. He denied hallucinations did not appear to be responding to internal stimuli. Global impression is average. He has some understanding and awareness of his illness but is unable to control his irritability. STRENGTHS: Stable income, involvement with community mental health, relatively good health WEAKNESSES: Stable housing, poor interpersonal skills, poor problem-solving skills, substance abuse problems IMPRESSION: Is a 40-year-old male admitted to psychiatric unit voluntarily with complaints of depression and suicidal ideation. He was markedly irritable and minimally cooperative with the interview. He reports that he has been homeless since he from his girlfriend 1 month ago. During this period of homelessness he developed increasing depression, hopelessness and helplessness. He would not provide a coherent substance abuse history but admitted he had been drinking. His UDS was positive for cocaine and marijuana. He has chronic problems with interpersonal conflict and uncontrolled anger His speech had an inpatient basis with combination of psychopharmacology and multimodal therapy. PRINCIPLE DIAGNOSIS: Major depressive disorder recurrent severe with mixed features, alcohol use disorder, cocaine use disorder, methamphetamine use disorder, antisocial personal disorder, lack of stable housing RECOMMENDATION: Admitted to the psychiatric unit. Safety precautions. Consult medicine for initial physical exam and medical history. toll test desk worker completed initial psychosocial assessment to coordinate discharge and aftercare. Resume Seroquel 200 mg at bedtime and citalopram 20 mg daily. Haldol and/or Ativan when necessary for agitation, aggression acute psychosis. Obtain 3 mental health records. Encourage participation in therapeutic groups and activities. Evaluate clinical status response to treatment daily basis. Allergies Allergy/AdvReac Type Severity Reaction Status Date / Time fluphenazine HCl Allergy Swelling Verified 07/25/21 19:21 [From Prolixin] haloperidol lactate Allergy Swelling Verified 07/25/21 19:21 [From Haldol] olanzapine [From Zyprexa] Allergy Swelling Verified 07/25/21 19:21 Vital Signs Temp 98.9 F 07/25/21 23:13 Pulse 89 07/25/21 23:13 Resp 16 07/25/21 23:13 BP 129/76 07/25/21 23:13 Pulse Ox 98 07/25/21 23:13 Intake & Output 07/25/21 07/26/21 07/26/21 18:59 06:59 18:59 Weight 86.183 kg Laboratory Last Values WBC 7.5 k/uL (3.8-10.6) 07/26/21 06:22 RBC 4.68 m/uL (4.30-5.90) 07/26/21 06:22 Hgb 14.8 gm/dL (13.0-17.5) 07/26/21 06:22 Hct 43.5 % (39.0-53.0) 07/26/21 06:22 MCV 93.1 fL (80.0-100.0) 07/26/21 06:22 MCH 31.7 pg (25.0-35.0) 07/26/21 06:22 MCHC 34.0 g/dL (31.0-37.0) 07/26/21 06:22 RDW 15.5 % (11.5-15.5) 07/26/21 06:22 Plt Count 246 k/uL (150-450) 07/26/21 06:22 MPV 6.7 07/26/21 06:22 Neutrophils % 48 % 07/26/21 06:22 Lymphocytes % 39 % 07/26/21 06:22 Monocytes % 6 % 07/26/21 06:22 Eosinophils % 4 % 07/26/21 06:22 Basophils % 1 % 07/26/21 06:22 Neutrophils # 3.6 k/uL (1.3-7.7) 07/26/21 06:22 Lymphocytes # 2.9 k/uL (1.0-4.8) 07/26/21 06:22 Monocytes # 0.4 k/uL (0-1.0) 07/26/21 06:22 Eosinophils # 0.3 k/uL (0-0.7) 07/26/21 06:22 Basophils # 0.1 k/uL (0-0.2) 07/26/21 06:22 Sodium 140 mmol/L (137-145) 07/26/21 06:22 Potassium 4.4 mmol/L (3.5-5.1) 07/26/21 06:22 Chloride 104 mmol/L (98-107) 07/26/21 06:22 Carbon Dioxide 28 mmol/L (22-30) 07/26/21 06:22 Anion Gap 8 mmol/L 07/26/21 06:22 BUN 9 mg/dL (9-20) 07/26/21 06:22 Creatinine 0.88 mg/dL (0.66-1.25) 07/26/21 06:22 Est GFR (CKD-EPI)AfAm >90 (>60 ml/min/1.73 sqM) 07/26/21 06:22 Est GFR (CKD-EPI)NonAf >90 (>60 ml/min/1.73 sqM) 07/26/21 06:22 Glucose 96 mg/dL (74-99) 07/26/21 06:22 Calcium 9.6 mg/dL (8.4-10.2) 07/26/21 06:22 Total Bilirubin 0.3 mg/dL (0.2-1.3) 07/26/21 06:22 AST 36 U/L (17-59) 07/26/21 06:22 ALT 38 U/L (4-49) 07/26/21 06:22 Alkaline Phosphatase 103 U/L (38-126) 07/26/21 06:22 Total Protein 6.3 g/dL (6.3-8.2) 07/26/21 06:22 Albumin 4.0 g/dL (3.5-5.0) 07/26/21 06:22 Urine Opiates Screen Not Detected (NotDetected) 07/25/21 19:40 Ur Oxycodone Screen Not Detected (NotDetected) 07/25/21 19:40 Urine Methadone Screen Not Detected (NotDetected) 07/25/21 19:40 Ur Propoxyphene Screen Not Detected (NotDetected) 07/25/21 19:40 Ur Barbiturates Screen Not Detected (NotDetected) 07/25/21 19:40 U Tricyclic Antidepress Not Detected (NotDetected) 07/25/21 19:40 Ur Phencyclidine Scrn Not Detected (NotDetected) 07/25/21 19:40 Ur Amphetamines Screen Not Detected (NotDetected) 07/25/21 19:40 U Methamphetamines Scrn Not Detected (NotDetected) 07/25/21 19:40 U Benzodiazepines Scrn Not Detected (NotDetected) 07/25/21 19:40 Urine Cocaine Screen Detected (NotDetected) H 07/25/21 19:40 U Marijuana (THC) Screen Detected (NotDetected) H 07/25/21 19:40 Coronavirus (PCR) Not Detected (Not Detectd) 07/25/21 21:51 07/26/21 08:19 07/26/21 08:19
[2021-07-26] MEDS ORDERED: GABAPENTIN 300 MG CAP PO STA (11:54)
[2021-07-26] MEDS ORDERED: cloNIDine HCL 0.1 MG TAB PO STA (11:54)
[2021-07-26] MEDS: ACETAMINOPHEN TAB 325 MG TAB PO PRN (11:58)
[2021-07-26 12:21] LABS: Chol/HDL Ratio 3.16; Cholesterol 139 mg/dL (0-200)
[2021-07-26 15:44] LABS: Hemoglobin A1C 5.1 % (4.0-6.0)
[2021-07-26] MEDS ORDERED: ZIPRASIDONE 20 MG VIAL IM PRN (16:13)
[2021-07-26] MEDS ORDERED: ZIPRASIDONE 20 MG CAP PO PRN (16:17)
--- NOTE | 2021-07-26 17:14 | P.CONS ---
History of Present Illness - Reason for Consult Consult date: 07/26/21 Medical management - Chief Complaint Suicidal ideation - History of Present Illness 41-year-old male patient presents to the emergency department today for evaluation of suicidal ideation. States he is not feeling right and has had. States he has been out of his psychiatric medications for the last 2 weeks. States that his clinician at [facility] has been urging him to contact the crisis line. Patient states he was not ready to be admitted but he has now. States that he does not have rash all spots. Does have a plan to take his life but he will not discuss it. Denies ever attempting suicide in the past. Has had previous mental health admissions. States he did drink alcohol earlier in the day. States he used street drugs a couple of days ago. He denies any current physical symptoms or concerns. Denies any hallucinations. Denies homicidal ideation. Review of Systems REVIEW OF SYSTEMS: CONSTITUTIONAL: No fever, no malaise, no fatigue. HEENT: No recent visual problems or hearing problems. Denied any sore throat. CARDIOVASCULAR: No chest pain, orthopnea, PND, no palpitations, no syncope. PULMONARY: No shortness of breath, no cough, no hemoptysis. GASTROINTESTINAL: No diarrhea, no nausea, no vomiting, no abdominal pain. NEUROLOGICAL: No headaches, no weakness, no numbness. HEMATOLOGICAL: Denies any bleeding or petechiae. GENITOURINARY: Denies any burning micturition, frequency, or urgency. MUSCULOSKELETAL/RHEUMATOLOGICAL: Denies any joint pain, swelling, or any muscle pain. ENDOCRINE: Denies any polyuria or polydipsia. The rest of the 14-point review of systems is negative. Past Medical History Past Medical History: No Reported History Additional Past Medical History / Comment(s): Head Injury at 12 years old; in a coma x1 month. psychiatric problems History of Any Multi-Drug Resistant Organisms: None Reported Past Surgical History: Adenoidectomy, Tonsillectomy Additional Past Surgical History / Comment(s): Stitches in arms and legs "at different times" Past Anesthesia/Blood Transfusion Reactions: No Reported Reaction Past Psychological History: Anxiety, Depression Smoking Status: Current every day smoker, Heavy tobacco smoker Past Alcohol Use History: Abuse Additional Past Alcohol Use History / Comment(s): pt reports that he has smoked 3 PPD since age 10. pt also reports that he drinks 1 - 2 beers daily and that he has been using cocaine, heroin, methamphetamines, and benzodiazepines. Past Drug Use History: Cocaine, Heroin, Marijuana, Methamphetamine, Prescription Drug Abuse Additional Drug Use History / Comment(s): pt states that he used MJ and everything years ago and denies use now - Past Family History Mother Family Medical History: Cancer Additional Family Medical History / Comment(s): Other at age 58 from cancer to the lung and brain Father Additional Family Medical History / Comment(s): Father at age 46 from motor vehicle accident. He was alcoholic. Brother(s) Additional Family Medical History / Comment(s): Patient has 1 brother addicted to pain pills. He does not have any sisters. He does not have any children. Medications and Allergies Home Medications Medication Instructions Recorded Confirmed Type Citalopram Hydrobromide [CeleXA] 40 mg PO DAILY 07/26/21 07/26/21 History Gabapentin [Neurontin] 300 mg PO BID 07/26/21 07/26/21 History Ibuprofen [Motrin Ib] 200 mg PO Q8H PRN 07/26/21 07/26/21 History QUEtiapine [SEROquel] 150 mg PO HS 07/26/21 07/26/21 History cloNIDine HCL 0.1 mg PO BID 07/26/21 07/26/21 History Allergies Allergy/AdvReac Type Severity Reaction Status Date / Time fluphenazine HCl Allergy Swelling Verified 07/26/21 11:10 [From Prolixin] haloperidol lactate Allergy Swelling Verified 07/26/21 11:10 [From Haldol] olanzapine [From Zyprexa] Allergy Swelling Verified 07/26/21 11:10 Physical Exam Vitals: Vital Signs Temp Pulse Pulse Resp BP BP Pulse Ox 07/25/21 23:13 98.9 F 89 16 129/76 98 07/25/21 19:21 98.3 F 96 18 128/72 94 L Intake and Output 07/25/21 07/26/21 07/26/21 22:59 06:59 14:59 Other: Weight 86.183 kg 86.183 kg - Constitutional General appearance: Present: average body habitus, cooperative, no acute distress - EENT Eyes: Present: anicteric sclerae, EOMI, PERRLA, normal appearance ENT: Present: hearing grossly normal, normal oropharynx Ears: bilateral: normal - Neck Neck: Present: normal ROM. Absent: lymphadenopathy, rigidity, thyromegaly Carotids: negative: bruit present Thyroid: bilateral: normal size, negative: enlarged, nodule - Respiratory Respiratory: bilateral: CTA, negative: rales, rhonchi, wheezing - Cardiovascular Rhythm: regular Heart sounds: normal: S1, S2 Abnormal Heart Sounds: Absent: systolic murmur, diastolic murmur - Gastrointestinal General gastrointestinal: Present: normal bowel sounds, soft. Absent: distended, organomegaly, tenderness - Genitourinary Genitourinary Comment(s): deferred - Integumentary Integumentary: Present: normal turgor. Absent: jaundiced, rash, ulcer - Neurologic Neurologic: Present: CNII-XII intact. Absent: focal deficits - Musculoskeletal Musculoskeletal: Present: gait normal, strength equal bilaterally - Psychiatric Psychiatric: Present: A&O x's 3, appropriate affect, intact judgment & insight Results CBC & Chem 7: 07/26/21 06:22 07/26/21 06:22 Labs: Abnormal Lab Results - Last 24 Hours (Table) 07/25/21 Range/Units 19:40 Urine Cocaine Screen Detected H (NotDetected) U Marijuana (THC) Screen Detected H (NotDetected) Assessment and Plan Assessment: 1. Major depression; your management 2. Substance abuse; patient does have history of EtOH use disorder along with cocaine and methamphetamine use disorder; counseling done in detail 3. Gastroesophageal reflux disease; patient reports taking omeprazole at home; we will resume PPI DVT prophylaxis; ambulation CODE STATUS; full code
[2021-07-26] MEDS ORDERED: ZIPRASIDONE 20 MG CAP PO SCH (17:30)
[2021-07-26] MEDS: GABAPENTIN 300 MG CAP PO SCH (20:33)
[2021-07-26] MEDS: QUEtiapine 200 MG TAB PO SCH (20:33)
[2021-07-26] MEDS: cloNIDine HCL 0.1 MG TAB PO SCH (20:33)
[2021-07-27] MEDS: NICOTINE 21MG/24HR PATCH TRANSDERM SCH (07:49)
[2021-07-27] MEDS: cloNIDine HCL 0.1 MG TAB PO SCH ×2 (07:49→20:00)
[2021-07-27] MEDS: CITALOPRAM HYDROBROMIDE 10 MG TAB PO SCH (07:49)
[2021-07-27] MEDS: GABAPENTIN 300 MG CAP PO SCH ×2 (07:51→19:59)
[2021-07-27] MEDS: ACETAMINOPHEN TAB 325 MG TAB PO PRN ×2 (07:51→14:28)
[2021-07-27] MEDS: LORazepam 1 MG TAB PO PRN ×3 (07:51→20:51)
[2021-07-27] MEDS ORDERED: hydrOXYzine pamoate 25 MG CAP PO PRN (11:08)
--- NOTE | 2021-07-27 11:24 | P.PN ---
Progress Note - Text Progress Note Date: 07/27/21 Interval History: Patient was seen lying in his bed this morning and was directable and agreeable to speak with marine underwriter in the office. Patient appeared to be irritable at times and argumentative and medication seeking. He spoke significantly about Ativan and wanting marine underwriter to increase his dose. He states that that is the only medication that helps his severe anxiety. Try On Baster explained the reasons for this medication being dangerous for him including mixing with other substances including alcohol and also abuse potential and patient got upset and claimed "I'm not content abuse and needed for my anxiety!". She explained that he recently broke up with his girlfriend and found himself homeless for approximately a month before coming into the hospital. She was preoccupied with "getting help" and states that his mood is still depressed. He was reluctant to speak about his drug use. He states that he slept better last night. At this time patient denies any current suicidal or homical ideations, intent or plan. Patient denies any auditory, visual hallucinations and denies any paranoia or delusions. Patient denies any side effects from the medications and has been compliant with meds. Mental Status Exam: General Appearance: [Patient appears to be unkempt, stated age is alert, evasive, guarded..] Behavior: [Patient is calmly seated without any agitated behavior.] Irritable and impulsive Speech: Patient's speech is fluent and nonpressured. Mood/Affect: Mood is anxious and depressed, affect is congruent Suicidality/Homicidality: Patient denies having any suicidal or homicidal ideation intent or plan. Perceptions: Patient denies any visual hallucinations [and denies any auditory hallucinations] Though content/process: Focused on his medications including the controlled medications. He is goal oriented. Argumentative Memory and concentration: AOX3, grossly intact for the purposes of this session Judgment and insight: Chronically poor/impulsive Assessment Major depressive disorder recurrent severe alcohol use disorder cocaine use disorder cannabis use disorder methamphetamine use disorder antisocial personal disorder lack of stable housing nicotine dependence Plan: -Patient continues to meet criteria for inpatient psychiatric admission for symptom stabilization and safety. Patient has [not] signed [medication consent] and was placed in patient's chart. Patient is currently under voluntary status. -Medications: Continue with Seroquel 200 mg daily at bedtime for mood stabilization/insomnia. Continue with Celexa 30 mg daily for mood/anxiety. Added Vistaril 25 mg twice a day for anxiety. Decreased patient's Ativan prn. Can continue with Neurontin as prescribed and clonidine as prescribed. -When necessary Ativan and Geodon prn for agitation/aggression. -NRT - [nicotine patch] -SW on board for discharge planning. Encouraged the patient to participate in milieu. Patient is currently requesting to go to [facility] upon discharge. He was hesitant however was also agreeable to go to in rehab. likely dischage in 1-2 days.
[2021-07-27] MEDS: hydrOXYzine pamoate 25 MG CAP PO SCH ×2 (12:52→20:00)
[2021-07-27] MEDS: QUEtiapine 200 MG TAB PO SCH (20:50)
[2021-07-28] MEDS: CITALOPRAM HYDROBROMIDE 10 MG TAB PO SCH (08:06)
[2021-07-28] MEDS: hydrOXYzine pamoate 25 MG CAP PO SCH ×3 (08:06→20:17)
[2021-07-28] MEDS: NICOTINE 21MG/24HR PATCH TRANSDERM SCH (08:06)
[2021-07-28] MEDS: cloNIDine HCL 0.1 MG TAB PO SCH (08:06)
[2021-07-28] MEDS: LORazepam 1 MG TAB PO PRN ×3 (08:07→22:08)
[2021-07-28] MEDS: GABAPENTIN 300 MG CAP PO SCH ×2 (08:07→20:17)
[2021-07-28] MEDS: ACETAMINOPHEN TAB 325 MG TAB PO PRN ×2 (09:37→15:13)
[2021-07-28] MEDS ORDERED: CITALOPRAM HYDROBROMIDE 10 MG TAB PO ONE (09:45)
--- NOTE | 2021-07-28 09:57 | P.PN ---
Progress Note - Text Progress Note Date: 07/28/21 Interval History: Patient was seen wandering the hallways and was directable and agreeable to sp errol with rewriter in the office. Patient appeared to be less irritable today during conversation. He continues to be focused on his medications and also going to [facility]. When rewriter spoke to patient about other options for housing including [facility] or going to rehab, patient refused and claims that he wants to stay around the area. Things that he is still feeling depressed and anxious and claims that "there is a lot of things on my mind". He states that he was able to sleep fairly last night however was having significant nightmares and states that he's been having trauma related nightmares for the past 2 weeks which has been disrupting his sleep. He continues to be focused on his homelessness. He was reluctant to speak about his drug use. He states that he has been going to groups however finds him not helpful. At this time patient denies any current suicidal or homical ideations, intent or plan. Patient denies any auditory, visual hallucinations and denies any paranoia or delusions. Patient denies any side effects from the medications and has been compliant with meds. Mental Status Exam: General Appearance: Patient appears to be unkempt, stated age is alert, evasive, guarded, improving midlly Behavior: Patient is calmly seated without any agitated behavior. Less irritable today Speech: Patient's speech is fluent and nonpressured. Mood/Affect: Mood is anxious and depressed, affect is congruent Suicidality/Homicidality: Patient denies having any suicidal or homicidal ideation intent or plan. Perceptions: Patient denies any visual hallucinations and denies any auditory hallucinations Though content/process: Focused on his medications including the controlled medications. goal oriented. Memory and concentration: AOX3, grossly intact for the purposes of this session Judgment and insight: Chronically poor/impulsive, improving mildly Assessment: Major depressive disorder recurrent severe alcohol use disorder cocaine use disorder cannabis use disorder methamphetamine use disorder antisocial personal disorder lack of stable housing nicotine dependence Plan: -Patient continues to meet criteria for inpatient psychiatric admission for symptom stabilization and safety. Patient has not signed medication consent and was placed in patient's chart. Patient is currently under voluntary status. -Medications: Continue with Seroquel 200 mg daily at bedtime for mood stabilization/insomnia. Increase Celexa 40 mg daily for mood/anxiety. increase Vistaril 25 mg three times a day for anxiety. Can continue with Neurontin as prescribed. Added prazosin 1mg qhs for nightmares. d/c clonidine. -When necessary Ativan and Geodon prn for agitation/aggression -NRT - nicotine patch -SW on board for discharge planning. Encouraged the patient to participate in milieu. Patient is currently requesting to go to [facility] upon discharge. It was explained to him that if he is not accepted into [facility] then he will be liekly d/c to [facility]. He declining in rehab. likely dischage tomorrow vs. thrusday
[2021-07-28] MEDS: QUEtiapine 200 MG TAB PO SCH (20:18)
[2021-07-28] MEDS ORDERED: PRAZOSIN 1 MG CAP PO SCH (21:00)
[2021-07-29] MEDS: hydrOXYzine pamoate 25 MG CAP PO SCH (07:58)
[2021-07-29] MEDS: LORazepam 1 MG TAB PO PRN (07:58)
[2021-07-29] MEDS: NICOTINE 21MG/24HR PATCH TRANSDERM SCH (07:59)
[2021-07-29] MEDS: GABAPENTIN 300 MG CAP PO SCH (07:59)
[2021-07-29 08:03] VITALS: BP 121/84; PULSE 103; RESP 20; TEMP 98.1
[2021-07-29] MEDS ORDERED: CITALOPRAM HYDROBROMIDE 20 MG TAB PO SCH (09:00)
--- NOTE | 2021-07-29 10:25 | P.DS ---
Providers Date of admission: 07/25/21 21:39 Expected date of discharge: 07/29/21 Attending physician: River Fairbanks MD Consults: 07/25/21 22:29 Consult Physician Routine Consulting Provider: Mia Marin Consult Reason/Comments: medical management Do you want consulting provider notified?: Yes Primary care physician: Zakia East - Discharge Diagnosis(es) (1) Major depressive disorder, recurrent episode, severe Current Visit: Yes Status: Acute Priority: High (2) Alcohol use disorder Current Visit: Yes Status: Acute Priority: Medium (3) Cocaine use disorder Current Visit: Yes Status: Acute Priority: Medium (4) Cannabis use disorder, mild, abuse Current Visit: Yes Status: Acute Priority: Medium (5) Methamphetamine abuse Current Visit: Yes Status: Acute Priority: Medium (6) Antisocial personality disorder Current Visit: Yes Status: Acute Priority: Medium (7) Housing lack Current Visit: Yes Status: Acute Priority: Medium (8) Nicotine dependence Current Visit: Yes Status: Acute Priority: Low Hospital Course: Admission HPI: Admission note was completed by Dr. Bray "Erik is a homeless 41-year-old male admitted to the psychiatric unit voluntarily with complaints of depression and suicidal ideation. This is a difficult interview because he was markedly irritable and only minimally cooperative. He is known to this psychiatric unit from prior admissions. His last discharged in January 2021 with the diagnoses of major depressive disorder, generalized anxiety disorder, methamphetamine use disorder, antisocial personality disorder and tobacco use disorder. He presented to the ED apparently at the behest of his [facility] rn delivery. He stated that he "broke up" with his girlfriend 1 month ago and since has been homeless. He alleged that he was "sleeping on the streets." He became angry when I asked specific questions about his living situation such as where he was sleeping, had he been to the retirement and whether he is reached out to friends or family. He alleged that he went to the retirement but "they were full." He talked about "sleeping behind bushes." He alleged has no income (prior records indicate that he has SSI benefits) and talked as though friends and family have distanced themselves from him. Since he has been homeless he became progressively more depressed, hopeless and helpless. He talked about struggling with thoughts of suicide but denied that he had attempted suicide. He became angry when I mentioned the EPS nurse had told me that he had recently attentionally overdosed on heroin as a suicide attempt. He angrily responded to that that was not true. He denied use of drugs with the exception of alcohol. His breath alcohol level on presentation to ED was 0.34. He denied use of drugs including heroin. However, his UDS was positive for cocaine and marijuana. He denied experiencing such psychotic symptoms as hallucinations, confusion or paranoia." Hospital course: Upon admission to the unit patient was initially depressed, going through withdrawals, having anxiety. Patient was however directable and agreeable to commence treatment and signed adult voluntary form. Patient got along well with other patients on the unit and followed unit protocol. Patient was compliant with the medications and denied any side effects throughout hospital course. Patient was started on seroquel 200 mg qhs for mood stabilization, celexa 40mg d aily for mood/anxiety, vistaril 25 mg tid for anxiety, prazosin 1mg qhs nightmare, continue with neuronton 300mg bid for pain/anxiety. Patient spoke of his stressors and engaged in therapy both group and individual. Patient was also seen by medical team for history and physical exam. Throughout the course of the hospitalization patient gradually improved with regards to mood, anxiety, sleep and return back to his baseline level of functioning. Patient has chronically poor insight into his need for treatment and substance use. On the day of discharge patient denied any suicidal or homicidal ideations intent or plan denied any auditory or visual hallucinations. Patient endorsed wanting to live for his future and his family. The patient denied any access to guns or weapons. Patient denied any paranoia and did not endorse any delusions. Patient does have a significant history of substance abuse and was counseled on abstaining from all substances including alcohol and marijuana. Patient was offered however declined inpatient substance-abuse rehab. Patient elected to do outpatient substance use treatment program through [facility]. Patient was also counseled on the medications and need for regular compliance and was encouraged to follow-up with their outpatient appointment for mental health and also for primary care. Today patient was fairly persistent in wanting to be discharged to the retirement as he will not qualify for admission to [facility]. Mental status exam: General Appearance: Patient appears to be stated age is alert, pleasant, and cooperative. Patient is in no acute distress and has improved hygiene and grooming Behavior: Patient is calmly seated without any agitated behavior. Speech: Patient's speech is fluent and nonpressured. Mood/Affect: Patient reports their mood is "good", affect is congruent Suicidality/Homicidality: Patient denies having any suicidal or homicidal ideation intent or plan. Perceptions: Patient denies any auditory or visual hallucinations. Though content/process: There is no evidence of any delusional thought content and thought process is linear and goal-directed. Memory and concentration: AOX3, grossly intact for the purposes of this session. Can spell "WORLD" backwards correctly. Judgment and insight: chronically poor, however has improved with guarded prognosis Impression: Major depressive disorder, recurrent, severe Alcohol use disorder Cocaine use disorder Cannabis use disorder Methamphetamine abuse Antisocial personality disorder Lack of housing Nicotine dependence Plan: -Continue with discharge today as patient has improved and stabilized psychiatrically and is not currently an imminent threat to himself and/or others. Patient will remain at chronically elevated risk for harm to self and/or others due to his chronically poor insight/judgment and polysubstance abuse. -Continue medications: Seroquel 200 mg daily at bedtime for mood stabilization/insomnia, Celexa 40 mg daily for mood/anxiety, Vistaril 25 mg 3 times a day for anxiety. Prazosin 1 mg daily at bedtime for nightmares. Neurontin 300 mg twice a day and will be given a 5 day supply as patient recently had a prescription filled for 30 days on 07/15 however patient claims that he lost the medication. -Patient was counseled on the need for medication compliance and appropriate follow-up at mental health and also primary care for medical issues. Patient verbalized understanding and agreed. -Social work to arrange with [facility] today's discharge for patient. Patient will be going to the retirement today as he is refusing rehab and also does not qualify for [facility] as he previously requested. Social work also to arrange for patients follow up appointments with [facility] for psychiatric care along with follow up with primary care provider. -Patient counseled on abstaining from recreational drugs and marijuana and alcohol. Was informed/educated on the adverse effects on their physical and mental health. Patient verbally agreed and understood. Patient was offered substance abuse treatment however declined at this time. -Patient was instructed to return to the hospital or seek immediate medical care if their psychiatric or medical symptoms do worsen or reoccur. Allergies Allergy/AdvReac Type Severity Reaction Status Date / Time fluphenazine HCl Allergy Swelling Verified 07/26/21 11:10 [From Prolixin] haloperidol lactate Allergy Swelling Verified 07/26/21 11:10 [From Haldol] olanzapine [From Zyprexa] Allergy Swelling Verified 07/26/21 11:10 Laboratory Results WBC 7.5 k/uL (3.8-10.6) 07/26/21 06:22 RBC 4.68 m/uL (4.30-5.90) 07/26/21 06:22 Hgb 14.8 gm/dL (13.0-17.5) 07/26/21 06:22 Hct 43.5 % (39.0-53.0) 07/26/21 06:22 MCV 93.1 fL (80.0-100.0) 07/26/21 06:22 MCH 31.7 pg (25.0-35.0) 07/26/21 06:22 MCHC 34.0 g/dL (31.0-37.0) 07/26/21 06:22 RDW 15.5 % (11.5-15.5) 07/26/21 06:22 Plt Count 246 k/uL (150-450) 07/26/21 06:22 MPV 6.7 07/26/21 06:22 Neutrophils % 48 % 07/26/21 06:22 Lymphocytes % 39 % 07/26/21 06:22 Monocytes % 6 % 07/26/21 06:22 Eosinophils % 4 % 07/26/21 06:22 Basophils % 1 % 07/26/21 06:22 Neutrophils # 3.6 k/uL (1.3-7.7) 07/26/21 06:22 Lymphocytes # 2.9 k/uL (1.0-4.8) 07/26/21 06:22 Monocytes # 0.4 k/uL (0-1.0) 07/26/21 06:22 Eosinophils # 0.3 k/uL (0-0.7) 07/26/21 06:22 Basophils # 0.1 k/uL (0-0.2) 07/26/21 06:22 Sodium 140 mmol/L (137-145) 07/26/21 06:22 Potassium 4.4 mmol/L (3.5-5.1) 07/26/21 06:22 Chloride 104 mmol/L (98-107) 07/26/21 06:22 Carbon Dioxide 28 mmol/L (22-30) 07/26/21 06:22 Anion Gap 8 mmol/L 07/26/21 06:22 BUN 9 mg/dL (9-20) 07/26/21 06:22 Creatinine 0.88 mg/dL (0.66-1.25) 07/26/21 06:22 Est GFR (CKD-EPI)AfAm >90 (>60 ml/min/1.73 sqM) 07/26/21 06:22 Est GFR (CKD-EPI)NonAf >90 (>60 ml/min/1.73 sqM) 07/26/21 06:22 Glucose 96 mg/dL (74-99) 07/26/21 06:[address] Glu mg/dL 100 07/26/21 06:22 Hemoglobin A1c 5.1 % (4.0-6.0) 07/26/21 06:22 Calcium 9.6 mg/dL (8.4-10.2) 07/26/21 06:22 Total Bilirubin 0.3 mg/dL (0.2-1.3) 07/26/21 06:22 AST 36 U/L (17-59) 07/26/21 06:22 ALT 38 U/L (4-49) 07/26/21 06:22 Alkaline Phosphatase 103 U/L (38-126) 07/26/21 06:22 Total Protein 6.3 g/dL (6.3-8.2) 07/26/21 06:22 Albumin 4.0 g/dL (3.5-5.0) 07/26/21 06:22 Triglycerides 120.0 mg/dL (0.0-149.0) 07/26/21 06:22 Cholesterol 139 mg/dL (0-200) 07/26/21 06:22 LDL Cholesterol, Calc 71.0 mg/dL (0.0-131.0) 07/26/21 06:22 VLDL Cholesterol, Calc 24.00 mg/dL (5.00-40.00) 07/26/21 06:22 HDL Cholesterol 44.0 mg/dL (40.0-60.0) 07/26/21 06:22 Cholesterol/HDL Ratio 3.16 07/26/21 06:22 TSH 2.200 mIU/L (0.465-4.680) 07/26/21 06:22 Urine Opiates Screen Not Detected (NotDetected) 07/25/21 19:40 Ur Oxycodone Screen Not Detected (NotDetected) 07/25/21 19:40 Urine Methadone Screen Not Detected (NotDetected) 07/25/21 19:40 Ur Propoxyphene Screen Not Detected (NotDetected) 07/25/21 19:40 Ur Barbiturates Screen Not Detected (NotDetected) 07/25/21 19:40 U Tricyclic Antidepress Not Detected (NotDetected) 07/25/21 19:40 Ur Phencyclidine Scrn Not Detected (NotDetected) 07/25/21 19:40 Ur Amphetamines Screen Not Detected (NotDetected) 07/25/21 19:40 U Methamphetamines Scrn Not Detected (NotDetected) 07/25/21 19:40 U Benzodiazepines Scrn Not Detected (NotDetected) 07/25/21 19:40 Urine Cocaine Screen Detected (NotDetected) H 07/25/21 19:40 U Marijuana (THC) Screen Detected (NotDetected) H 07/25/21 19:40 Coronavirus (PCR) Not Detected (Not Detectd) 07/25/21 21:51 Vital Signs Temp 98.1 F 07/29/21 08:00 Pulse 103 H 07/29/21 08:00 Resp 20 07/29/21 08:00 BP 121/84 07/29/21 08:00 Pulse Ox 96 07/29/21 06:11 Patient Condition at Discharge: Serious Plan - Discharge Summary Discharge Rx Participant: No New Discharge Prescriptions: New Citalopram Hydrobromide [CeleXA] 40 mg PO DAILY 30 Days tab Gabapentin [Neurontin] 300 mg PO BID 5 Days #10 cap Nicotine 21Mg/24Hr Patch [Habitrol] 1 patch TRANSDERM DAILY 14 Days patch Prazosin [Minipress] 1 mg PO HS 30 Days cap QUEtiapine [SEROquel] 200 mg PO HS 30 Days tab Acetaminophen Tab [Tylenol] 650 mg PO Q6HR PRN #14 tab PRN Reason: Pain/Discomfort hydrOXYzine pamoate [Vistaril] 25 mg PO TID 30 Days cap Discontinued cloNIDine HCL 0.1 mg PO BID Ibuprofen [Motrin Ib] 200 mg PO Q8H PRN PRN Reason: Headache Gabapentin [Neurontin] 300 mg PO BID QUEtiapine [SEROquel] 150 mg PO HS Citalopram Hydrobromide [CeleXA] 40 mg PO DAILY Discharge Medication List Acetaminophen Tab [Tylenol] 650 mg PO Q6HR PRN #14 tab 07/29/21 [Rx] Citalopram Hydrobromide [CeleXA] 40 mg PO DAILY 30 Days tab 07/29/21 [Rx] Gabapentin [Neurontin] 300 mg PO BID 5 Days #10 cap 07/29/21 [Rx] Nicotine 21Mg/24Hr Patch [Habitrol] 1 patch TRANSDERM DAILY 14 Days patch 07/29/21 [Rx] Prazosin [Minipress] 1 mg PO HS 30 Days cap 07/29/21 [Rx] QUEtiapine [SEROquel] 200 mg PO HS 30 Days tab 07/29/21 [Rx] hydrOXYzine pamoate [Vistaril] 25 mg PO TID 30 Days cap 07/29/21 [Rx] Follow up Appointment(s)/Referral(s): [facility] [Outside] - 07/31/21 12:30 pm (07-31-21 @ 12:30 with LINNETTE Gonzalez at [facility] office 08-04-21 @ 11:00 with Shaylee Mungo phone with [facility] ) Zakia East MD [Primary Care Provider] - 1-2 days Activity/Diet/Wound Care/Special Instructions: Activity and diet as tolerated. Avoid the use of street drugs and alcohol. Take all medications as prescribed. When you are in need of refills on your medications please contact your medical provider and/or outpatient psychiatrist to have this done. Please go to scheduled outpatient appointment for aftercare treatment. If symptoms return or become worse, call the crisis line at and/or go to the nearest emergency room for evaluation. Discharge Disposition: OTHER INSTITUTION NOT DEFINED
== END 2021-07-29 11:38 | disposition home or self-care (01) | DRG 885 ==
LOC: EC 19:17 → 3MHU 21:39
PROVIDERS: ADMIT Psychiatry & Neurology Psychiatry; ATTEND Psychiatry & Neurology Psychiatry
DX: F33.2 Major depressive disorder, recurrent severe without psychotic features (principal); R45.851 Suicidal ideations; F14.10 Cocaine abuse, uncomplicated; F15.10 Other stimulant abuse, uncomplicated; F60.2 Antisocial personality disorder; Z20.822 Contact with and (suspected) exposure to COVID-19; F10.10 Alcohol abuse, uncomplicated; F12.10 Cannabis abuse, uncomplicated; K21.9 Gastro-esophageal reflux disease without esophagitis; G47.00 Insomnia, unspecified; F17.210 Nicotine dependence, cigarettes, uncomplicated; Z71.6 Tobacco abuse counseling; Z79.899 Other long term (current) drug therapy; Z56.0 Unemployment, unspecified; Z59.0 Homelessness; Z87.820 Personal history of traumatic brain injury; Z90.89 Acquired absence of other organs; Z98.890 Other specified postprocedural states; Z88.8 Allergy status to other drugs, medicaments and biological substances; Z80.1 Family history of malignant neoplasm of trachea, bronchus and lung; Z80.8 Family history of malignant neoplasm of other organs or systems; Z81.1 Family history of alcohol abuse and dependence; Z81.4 Family history of other substance abuse and dependence
CPT/HCPCS: 80053; 80061; 80306; 82075; 83036; 84443; 85025; 87635; 96372; 99285

== ENCOUNTER 2021-08-01 23:57 | Inpatient (IN) | payer OTHER ==
--- NOTE | 2021-08-02 00:47 | ED ---
Alcohol HPI - General Chief Complaint: Alcohol Stated Complaint: ETOH Time Seen by Provider: 08/02/21 00:04 Source: patient, EMS Mode of arrival: EMS Limitations: altered mental status - Related Data Previous Rx's Medication Instructions Recorded Acetaminophen Tab [Tylenol] 650 mg PO Q6HR PRN #14 tab 07/29/21 Citalopram Hydrobromide [CeleXA] 40 mg PO DAILY 30 Days tab 07/29/21 Gabapentin [Neurontin] 300 mg PO BID 5 Days #10 cap 07/29/21 Nicotine 21Mg/24Hr Patch [Habitrol] 1 patch TRANSDERM DAILY 14 Days 07/29/21 patch Prazosin [Minipress] 1 mg PO HS 30 Days cap 07/29/21 QUEtiapine [SEROquel] 200 mg PO HS 30 Days tab 07/29/21 hydrOXYzine pamoate [Vistaril] 25 mg PO TID 30 Days cap 07/29/21 Allergies Allergy/AdvReac Type Severity Reaction Status Date / Time fluphenazine HCl Allergy Swelling Verified 08/02/21 00:16 [From Prolixin] haloperidol lactate Allergy Swelling Verified 08/02/21 00:16 [From Haldol] olanzapine [From Zyprexa] Allergy Swelling Verified 08/02/21 00:16 Review of Systems ROS Statement: Those systems with pertinent positive or pertinent negative responses have been documented in the HPI. ROS Other: All systems not noted in ROS Statement are negative. Past Medical History Past Medical History: No Reported History Additional Past Medical History / Comment(s): Head Injury at 12 years old; in a coma x1 month. psychiatric problems History of Any Multi-Drug Resistant Organisms: None Reported Past Surgical History: Adenoidectomy, Tonsillectomy Additional Past Surgical History / Comment(s): Stitches in arms and legs "at different times" Past Anesthesia/Blood Transfusion Reactions: No Reported Reaction Past Psychological History: Anxiety, Depression Smoking Status: Current every day smoker, Heavy tobacco smoker Past Alcohol Use History: Abuse Past Drug Use History: Cocaine, Heroin, Marijuana, Methamphetamine, Prescription Drug Abuse - Past Family History Mother Family Medical History: Cancer Additional Family Medical History / Comment(s): Other at age 58 from cancer to the lung and brain Father Additional Family Medical History / Comment(s): Father at age 46 from motor vehicle accident. He was alcoholic. Brother(s) Additional Family Medical History / Comment(s): Patient has 1 brother addicted to pain pills. He does not have any sisters. He does not have any children. General Exam Limitations: altered mental status Course Vital Signs 08/02/21 00:04 Temperature 98.0 F Pulse Rate 68 Respiratory 18 Rate Blood Pressure 136/86 O2 Sat by Pulse 97 Oximetry Medical Decision Making - Lab Data Result diagrams: 08/02/21 01:50 08/02/21 01:50 Lab Results 08/02/21 08/02/21 08/02/21 Range/Units 01:50 01:50 02:12 WBC 13.9 H (3.8-10.6) k/uL RBC 4.79 (4.30-5.90) m/uL Hgb 15.2 (13.0-17.5) gm/dL Hct 43.5 (39.0-53.0) % MCV 90.8 (80.0-100.0) fL MCH 31.7 (25.0-35.0) pg MCHC 35.0 (31.0-37.0) g/dL RDW 14.4 (11.5-15.5) % Plt Count 280 (150-450) k/uL MPV 6.9 Neutrophils % 67 % Lymphocytes % 22 % Monocytes % 8 % Eosinophils % 1 % Basophils % 1 % Neutrophils # 9.3 H (1.3-7.7) k/uL Lymphocytes # 3.1 (1.0-4.8) k/uL Monocytes # 1.1 H (0-1.0) k/uL Eosinophils # 0.2 (0-0.7) k/uL Basophils # 0.1 (0-0.2) k/uL Sodium 137 (137-145) mmol/L Potassium 3.7 (3.5-5.1) mmol/L Chloride 104 (98-107) mmol/L Carbon Dioxide 18 L (22-30) mmol/L Anion Gap 15 mmol/L BUN 12 (9-20) mg/dL Creatinine 0.81 (0.66-1.25) mg/dL Est GFR (CKD-EPI)AfAm >90 (>60 ml/min/1.73 sqM) Est GFR (CKD-EPI)NonAf >90 (>60 ml/min/1.73 sqM) Glucose 87 (74-99) mg/dL Calcium 9.5 (8.4-10.2) mg/dL Phosphorus 3.5 (2.5-4.5) mg/dL Magnesium 1.9 (1.6-2.3) mg/dL Total Bilirubin 0.9 (0.2-1.3) mg/dL AST 37 (17-59) U/L ALT 47 (4-49) U/L Alkaline Phosphatase 109 (38-126) U/L Total Protein 6.8 (6.3-8.2) g/dL Albumin 4.4 (3.5-5.0) g/dL Lipase 158 (23-300) U/L Urine Color Yellow Urine Appearance Clear (Clear) Urine pH 6.0 (5.0-8.0) Ur Specific [place] 1.030 (1.001-1.035) Urine Protein 1+ H (Negative) Urine Glucose (UA) Negative (Negative) Urine Ketones 1+ H (Negative) Urine Blood Negative (Negative) Urine Nitrite Negative (Negative) Urine Bilirubin Negative (Negative) Urine Urobilinogen 4.0 (<2.0) mg/dL Ur Leukocyte Esterase Negative (Negative) Urine RBC 1 (0-5) /hpf Urine WBC 1 (0-5) /hpf Ur Squamous Epith Cells <1 (0-4) /hpf Urine Mucus Few H (None) /hpf Urine Opiates Screen Not Detected (NotDetected) Ur Oxycodone Screen Not Detected (NotDetected) Urine Methadone Screen Not Detected (NotDetected) Ur Propoxyphene Screen Not Detected (NotDetected) Ur Barbiturates Screen Not Detected (NotDetected) U Tricyclic Antidepress Not Detected (NotDetected) Ur Phencyclidine Scrn Not Detected (NotDetected) Ur Amphetamines Screen Detected H (NotDetected) U Methamphetamines Scrn Detected H (NotDetected) U Benzodiazepines Scrn Not Detected (NotDetected) Urine Cocaine Screen Not Detected (NotDetected) U Marijuana (THC) Screen Not Detected (NotDetected) Serum Alcohol 19 mg/dL Disposition Clinical Impression: Hypomagnesemia, Alcohol withdrawal delirium, Alcohol withdrawal syndrome, Alcohol intoxication, Depression Disposition: ADMITTED IP TO THIS HOSP Condition: Fair Is patient prescribed a controlled substance at d/c from ED?: No Referrals: Zakia East MD [Primary Care Provider] - 1-2 days
[2021-08-02] MEDS ORDERED: LORazepam 2 MG/ML INJ IV STA (01:47)
[2021-08-02] MEDS ORDERED: SODIUM CHLORIDE 0.9% 1,000 ML IV STA (01:47)
[2021-08-02 01:58] LABS: Basophils # (A) 0.1 k/uL (0-0.2); Basophils % (A) 1 %; Eosinophils # (A) 0.2 k/uL (0-0.7); Eosinophils % (A) 1 %; HCT 43.5 % (39.0-53.0); HGB 15.2 gm/dL (13.0-17.5); Lymphocytes # (A) 3.1 k/uL (1.0-4.8); Lymphocytes % (A) 22 %; MCH 31.7 pg (25.0-35.0); MCV 90.8 fL (80.0-100.0); Mean Platelet Volume 6.9; Monocytes # (A) 1.1 k/uL (0-1.0); Monocytes % (A) 8 %; Neutrophils # (A) 9.3 k/uL (1.3-7.7); Neutrophils % (A) 67 %; Platelet Count 280 k/uL (150-450); RBC 4.79 m/uL (4.30-5.90); RDW 14.4 % (11.5-15.5); WBC 13.9 k/uL (3.8-10.6)
[2021-08-02 02:07] LABS: ALT 47 U/L (4-49); AST 37 U/L (17-59); African American GFR (CKD) >90 (>60 ml/min/1.73 sqM); Albumin 4.4 g/dL (3.5-5.0); Alcohol 19 mg/dL; Alkaline Phosphatase 109 U/L (38-126); Anion Gap 15 mmol/L; Blood Urea Nitrogen 12 mg/dL (9-20); Calcium 9.5 mg/dL (8.4-10.2); Carbon Dioxide 18 mmol/L (22-30); Chloride 104 mmol/L (98-107); Glucose 87 mg/dL (74-99); Lipase 158 U/L (23-300); Magnesium 1.9 mg/dL (1.6-2.3); Non-African American GFR(CKD) >90 (>60 ml/min/1.73 sqM); Phosphorus 3.5 mg/dL (2.5-4.5); Potassium 3.7 mmol/L (3.5-5.1); Sodium 137 mmol/L (137-145); Total Bilirubin 0.9 mg/dL (0.2-1.3); Total Protein 6.8 g/dL (6.3-8.2)
[2021-08-02 02:23] LABS: Appearance,Urine Clear (Clear); Bilirubin,Urine Negative (Negative); Blood,Urine Negative (Negative); Color,Urine Yellow; Glucose,Urine (UA) Negative (Negative); Ketones,Urine 1+ (Negative); Leukocyte Esterase,Urine Negative (Negative); Mucus,Urine Few /hpf; Nitrite,Urine Negative (Negative); Protein,Urine 1+ (Negative); RBC,Urine 1 /hpf (0-5); Squamous Epithelial Cell,Urine <1 /hpf (0-4); WBC,Urine 1 /hpf (0-5)
[2021-08-02 02:39] LABS: Amphetamine Screen,Urine Detected (NotDetected); Barbiturate Screen,Urine Not Detected (NotDetected); Benzodiazepines Screen,Urine Not Detected (NotDetected); Cocaine Screen,Urine Not Detected (NotDetected); Methadone Screen, Urine Not Detected (NotDetected); Opiate Screen,Urine Not Detected (NotDetected); Phencyclidine Screen,Urine Not Detected (NotDetected); Tricyclic Antidepressant,Urine Not Detected (NotDetected); Urn Cannabinoid Scrn Not Detected (NotDetected)
[2021-08-02 02:40] LABS: Oxycodone Screen, Urine Not Detected (NotDetected)
[2021-08-02] MEDS ORDERED: THIAMINE 100 MG/ML 2 ML VIAL IM STA (03:57)
[2021-08-02] MEDS ORDERED: DIAZEPAM 5 MG/ML 2 ML INJ IVP PRN (03:57)
[2021-08-02] MEDS ORDERED: DIAZEPAM 5 MG/ML 2 ML INJ IVP STA (03:57)
[2021-08-02] MEDS ORDERED: LORazepam 2 MG/ML INJ IV PRN (03:57)
[2021-08-02] MEDS ORDERED: ONDANSETRON 4 MG/2 ML VIAL IVP PRN (03:57)
[2021-08-02] MEDS ORDERED: NALOXONE 0.4 MG/ML 1 ML VIAL IV PRN (03:57)
[2021-08-02] MEDS: SODIUM CHLORIDE 0.9% 1,000 ML IV SCH ×2 (05:15→13:28)
[2021-08-02] MEDS: MULTIVITAMINS, THERA 1 EACH TAB PO SCH (07:51)
[2021-08-02] MEDS: LORazepam 2 MG/ML INJ IV PRN ×6 (08:06→22:14)
--- NOTE | 2021-08-02 08:29 | XR ---
EXAMINATION TYPE: XR chest 2V DATE OF EXAM: 08/02/2021 COMPARISON: Chest x-ray May 14, 2021 HISTORY: Leukocytosis. Alcohol withdrawal. TECHNIQUE: Frontal and lateral views of the chest are obtained. FINDINGS: There is no suspicious focal air space opacity, pleural effusion, or pneumothorax seen. T he cardiac silhouette size is stable and within normal limits. The osseous structures are intact. O verlying EKG leads. IMPRESSION: No acute process. No significant change from prior.
[2021-08-02] MEDS ORDERED: PANTOPRAZOLE 40 MG/10 ML VIAL IV SCH (09:00)
[2021-08-02] MEDS ORDERED: NICOTINE 14MG/24HR PATCH TRANSDERM SCH (09:00)
[2021-08-02] MEDS ORDERED: QUEtiapine 50 MG TAB PO STA (10:03)
--- NOTE | 2021-08-02 10:10 | P.HPIM ---
History of Present Illness This is a pleasant 41 years old male with no significant past medical history, he has history of anxiety and depression. He is a patient of Dr. pritchett Presents with signs and symptoms of alcohol detox and withdrawal.Patient does not eat or drink for 3 days Patient was recently discharged from the psychiatric floor at [facility]. for major depressive disorder with recurrent severe episodes However after he left he did not cut his medication, he was homeless, he has insurance problem so he wasn't receiving his psych medication and he was drinking back again. Was drinking 2 beers plus pint of vodka daily. He hasn't been eating or drinking well, he wasn't sleeping well. He was not taking care of himself, he was feeling generally weak and pain all over he was shaky and feels dehydrated and decided to come to emergency room he was feeling suicidal 3 and 4 days ago however he denies any suicidal thoughts today Vitals are stable He had mild leukocytosis of 13.9 K, rest of CBC, BMP, liver enzymes are unremarkable Urine analysis showed 1+ protein and 1+ ketone. Urine drug screen is positive for amphetamine and methamphetamine Serum alcohol level slightly elevated at 19. Chest x-ray: No acute process An emergency room he was started on CIWA protocol, thiamine and normal saline at 1 30 mL/h Review of Systems CONSTITUTIONAL: No fever, no malaise, no fatigue. HEENT: No recent visual problems or hearing problems. Denied any sore throat. CARDIOVASCULAR: No orthopnea, PND, no palpitations, no syncope. PULMONARY: No shortness of breath, no cough, no hemoptysis. GASTROINTESTINAL: No diarrhea, no nausea, no vomiting, no abdominal pain. Normoactive bowel sounds. NEUROLOGICAL: No headaches, no weakness, no numbness. HEMATOLOGICAL: Denies any bleeding or petechiae. GENITOURINARY: Denies any burning micturition, frequency, or urgency. MUSCULOSKELETAL/RHEUMATOLOGICAL: Denies any joint pain, swelling, or any muscle pain. ENDOCRINE: Denies any polyuria or polydipsia. Past Medical History Past Medical History: No Reported History Additional Past Medical History / Comment(s): Head Injury at 12 years old; in a coma x1 month. psychiatric problems History of Any Multi-Drug Resistant Organisms: None Reported Past Surgical History: Adenoidectomy, Tonsillectomy Additional Past Surgical History / Comment(s): Stitches in arms and legs "at different times" Past Anesthesia/Blood Transfusion Reactions: No Reported Reaction Past Psychological History: Anxiety, Depression Smoking Status: Current every day smoker, Heavy tobacco smoker Past Alcohol Use History: Abuse Past Drug Use History: Cocaine, Heroin, Marijuana, Methamphetamine, Prescription Drug Abuse - Past Family History Mother Family Medical History: Cancer Additional Family Medical History / Comment(s): Other at age 58 from cancer to the lung and brain Father Additional Family Medical History / Comment(s): Father at age 46 from motor vehicle accident. He was alcoholic. Brother(s) Additional Family Medical History / Comment(s): Patient has 1 brother addicted to pain pills. He does not have any sisters. He does not have any children. Medications and Allergies Home Medications Medication Instructions Recorded Confirmed Type Acetaminophen Tab [Tylenol] 650 mg PO Q6HR PRN #14 tab 07/29/21 08/02/21 Rx Citalopram Hydrobromide [CeleXA] 40 mg PO DAILY 30 Days tab 07/29/21 08/02/21 Rx Gabapentin [Neurontin] 300 mg PO BID 5 Days #10 cap 07/29/21 08/02/21 Rx Nicotine 21Mg/24Hr Patch [Habitrol] 1 patch TRANSDERM DAILY 14 Days 07/29/21 08/02/21 Rx patch Prazosin [Minipress] 1 mg PO HS 30 Days cap 07/29/21 08/02/21 Rx QUEtiapine [SEROquel] 200 mg PO HS 30 Days tab 07/29/21 08/02/21 Rx hydrOXYzine pamoate [Vistaril] 25 mg PO TID 30 Days cap 07/29/21 08/02/21 Rx Allergies Allergy/AdvReac Type Severity Reaction Status Date / Time fluphenazine HCl Allergy Swelling Verified 08/02/21 08:07 [From Prolixin] haloperidol lactate Allergy Swelling Verified 08/02/21 08:07 [From Haldol] olanzapine [From Zyprexa] Allergy Swelling Verified 08/02/21 08:07 Physical Exam Vitals: Vital Signs Temp Pulse Resp BP Pulse Ox 08/02/21 07:20 98.2 F 87 18 124/77 99 08/02/21 05:16 87 18 124/79 97 08/02/21 04:00 96 18 106/62 96 08/02/21 02:15 95 18 113/89 95 08/02/21 00:04 98.0 F 68 18 136/86 97 Intake and Output 08/01/21 08/02/21 08/02/21 22:59 06:59 14:59 Other: Weight 86.183 kg -GENERAL: The patient is alert and oriented x3, not in any acute distress. Well developed, well nourished. Deconditioned and generally weak HEENT: Pupils are round and equally reacting to light. EOMI. No scleral icterus. No conjunctival pallor. Normocephalic, atraumatic. No pharyngeal erythema. No thyromegaly. CARDIOVASCULAR: S1 and S2 present. No murmurs, rubs, or gallops. PULMONARY: Chest is clear to auscultation, no wheezing or crackles. ABDOMEN: Soft, nontender, nondistended, normoactive bowel sounds. No palpable organomegaly. MUSCULOSKELETAL: No joint swelling or deformity. EXTREMITIES: No cyanosis, clubbing, or pedal edema. NEUROLOGICAL: Gross neurological examination did not reveal any focal deficits. SKIN: No rashes. No petechiae -Psychiatric: Agitation easily Results CBC & Chem 7: 08/02/21 01:50 08/02/21 01:50 Labs: Abnormal Lab Results - Last 24 Hours (Table) 08/02/21 08/02/21 08/02/21 Range/Units 01:50 01:50 02:12 WBC 13.9 H (3.8-10.6) k/uL Neutrophils # 9.3 H (1.3-7.7) k/uL Monocytes # 1.1 H (0-1.0) k/uL Carbon Dioxide 18 L (22-30) mmol/L Urine Protein 1+ H (Negative) Urine Ketones 1+ H (Negative) Urine Mucus Few H (None) /hpf Ur Amphetamines Screen Detected H (NotDetected) U Methamphetamines Scrn Detected H (NotDetected) Assessment and Plan Assessment: Severe depression with suicidal ideation Alcohol withdrawal Alcohol abuse Leukocytosis, mostly reactive Nonadherence to medication because of insurance problem Nicotine dependence Substance abuse including history of cocaine, heroin, marijuana and currently methamphetamine Plan: This is a pleasant 41 years old male who presents with alcohol withdrawal Kidney with CIWA protocol and thiamine Psychiatrist Consult, but suicidal precautions, sitter at bedside, patient cannot leave AMA otherwise he has to be petitioned. Currently he is agreeable to stay in the hospital log chain worker consult, for obtaining medication difficulty and placement nicotine patch 21 mg per day Labs and medication were reviewed.. Continue same treatment. Continue with symptomatic treatment. Resume home medication. Monitor lytes and vitals. DVT and GI prophylaxis. Further recommendations depends on the clinical course of the patient DVT prophylaxis: Subcutaneous heparin GI Prophylaxis: Pepcid PT/OT: Pending Prognosis is guarded
[2021-08-02] MEDS: CITALOPRAM HYDROBROMIDE 20 MG TAB PO SCH (10:18)
[2021-08-02] MEDS: hydrOXYzine pamoate 25 MG CAP PO SCH ×2 (10:18→22:13)
[2021-08-02] MEDS: GABAPENTIN 300 MG CAP PO SCH ×2 (10:18→22:14)
[2021-08-02] MEDS: NICOTINE 21MG/24HR PATCH TRANSDERM SCH (10:18)
[2021-08-02] MEDS: ACETAMINOPHEN TAB 325 MG TAB PO PRN (16:22)
[2021-08-02] MEDS: THIAMINE 100 MG TAB PO SCH (18:00)
[2021-08-02] MEDS: QUEtiapine 200 MG TAB PO SCH (22:13)
[2021-08-02] MEDS: PRAZOSIN 1 MG CAP PO SCH (22:14)
[2021-08-02] MEDS: HEPARIN SODIUM,PORCINE/PF 5,000 UNIT/0.5 ML SYRINGE SQ SCH (22:15)
[2021-08-02] MEDS: FAMOTIDINE 20 MG/2 ML VIAL IV SCH (22:15)
--- NOTE | 2021-08-02 22:19 | CONS ---
CONSULTATION DATE OF SERVICE: 08/02/2021. PURPOSE FOR CONSULTATION: Evaluate for substance use issues and history of a recent psychiatric admission at this facility. HISTORY OF PRESENTING ILLNESS: The patient is a 41-year-old male. When I talked to him, he was not too responsive. He was somewhat sleepy and only gave minimal information. It is noteworthy that he just had a recent admission from 07/25 to 07/29/2021. I refer the reader to Dr. Bray's psychiatric admission and other notes from that hospitalization. During that hospital stay, he was admitted for depression with suicidal ideation. He has had a number of past psychiatric hospitalizations with diagnoses of depression, anxiety, methamphetamine use and personality disorder. On admission he noted that he had a recent breakup with a girlfriend and subsequently was homeless for about the last month and was "sleeping on the streets." During that admission, he minimized use of street drugs, though he acknowledged drinking. His urine drug screen was positive for amphetamines and methamphetamines. He was discharged on 07/29/2021. Discharge psychotropic medications included Celexa 40 mg a day, Neurontin 300 mg twice a day, Minipress 1 mg at bedtime, Seroquel 200 mg at bedtime and Vistaril 25 mg three times a day. He had a follow-up appointment set up at [facility] on 07/31 and 08/04/2021. When I talked to the patient, he was unclear about whether or not he had been taking medications since discharge. As best as I was able to tell, he seemed to indicate that he was not taking his medications in any consistent way. He was vague about whether he had actually made his 07/31 appointment at [facility]. According to what he reported to Dr. Olivarez on this admission, he had not been taking his psychotropic medications. He started drinking and indicated he was drinking two beers a day plus one pint of vodka a day. He had not been eating or taking in normal fluids. He had poor self-care. He presented to the ED apparently making some statements about suicide. He was assessed as being in alcohol withdrawal with delirium, alcohol intoxication and depression. Currently he has been restarted on Celexa 40 mg a day, gabapentin 300 mg twice a day, Vistaril 25 mg three times a day, and Seroquel 200 mg a day. In addition he has Valium and Ativan available for alcohol detoxification. Nursing indicated he received Ativan 1 mg at 0800 hours and 0940 hours for detox symptoms. He had a CIWA score at 0745 hours of 5, At 0915 hours he had a CIWA score of 14. At 1015 hours his CIWA score was 6. Vital signs as of 0720 hours included BP 124/77, pulse 87 and regular, temperature 98.2, respirations 18, oxygen saturation 99. MENTAL STATUS EXAM: When I saw the patient, he was in the emergency department. He was sleeping. Initially he did not seem to show any response. When I called his name out several times in a fairly loud voice, after about 5 minutes he then started becoming responsive. He opened his eyes and then seemed to be reasonably awake. He did not make much effort to answer questions. He acknowledged that he had gotten back into drinking. As noted, he was vague about his recent situation other than stating that he was homeless. He did say that he would be willing to be referred to inpatient substance abuse treatment in a program such as [facility]. He could not say much about his circumstances in the last few days leading up to his coming back to the hospital. He acknowledged that he did have some issues with depression, which had at least improved to some extent when he was on the psychiatric unit. He spoke in a soft voice. He answered questions with brief responses. His thoughts were clear. His affect was constricted, his mood depressed. He was moderately distressed. There was no clear indication of thought disorder. He was vague but did not make any direct indications about thoughts of harm. He did not make an effort to respond to formal cognitive questions, though he was aware that he was at [facility]. He was able to say that about 4 days ago he was at [facility], admitted to the psychiatric unit. ASSESSMENT: This 41-year-old male has alcohol dependence and currently presents in acute alcohol withdrawal. He is being managed for alcohol detox with the primary risk factor being the next 3-5 days for potential development of delirium tremens and/or seizures. The patient did indicate that he has a history of both, and suggested that happened about one year ago. At this point, the primary focus here is medical management for detoxification. I would continue psychotropic medications the same. It is not clear that there is a need for psychiatric followup at this time. It would be most appropriate to engage Social Work to make efforts to refer to a substance use treatment program. If further psychiatric issues develop in the course of his hospitalization, please re-consult Psychiatry. MMODL / IJN: [id number] /
[2021-08-03] MEDS ORDERED: diazePAM 5 MG TAB PO SCH (09:00)
[2021-08-03] MEDS: NICOTINE 21MG/24HR PATCH TRANSDERM SCH (11:39)
[2021-08-03] MEDS: HEPARIN SODIUM,PORCINE/PF 5,000 UNIT/0.5 ML SYRINGE SQ SCH ×2 (11:40→20:05)
[2021-08-03] MEDS: hydrOXYzine pamoate 25 MG CAP PO SCH ×3 (11:41→20:06)
[2021-08-03] MEDS: CITALOPRAM HYDROBROMIDE 20 MG TAB PO SCH (11:42)
[2021-08-03] MEDS: THIAMINE 100 MG TAB PO SCH ×2 (11:42→20:05)
[2021-08-03] MEDS: FAMOTIDINE 20 MG/2 ML VIAL IV SCH (11:42)
[2021-08-03] MEDS: MULTIVITAMINS, THERA 1 EACH TAB PO SCH (11:42)
[2021-08-03] MEDS: GABAPENTIN 300 MG CAP PO SCH ×2 (11:42→20:05)
--- NOTE | 2021-08-03 12:26 | P.PN ---
Subjective This is a pleasant 41 years old male with no significant past medical history, he has history of anxiety and depression. He is a patient of Dr. pritchett Presents with signs and symptoms of alcohol detox and withdrawal.Patient does not eat or drink for 3 days Patient was recently discharged from the psychiatric floor at [facility]. for major depressive disorder with recurrent severe episodes However after he left he did not cut his medication, he was homeless, he has insurance problem so he wasn't receiving his psych medication and he was drinking back again. Was drinking 2 beers plus pint of vodka daily. He hasn't been eating or drinking well, he wasn't sleeping well. He was not taking care of himself, he was feeling generally weak and pain all over he was shaky and feels dehydrated and decided to come to emergency room he was feeling suicidal 3 and 4 days ago however he denies any suicidal thoughts today Vitals are stable He had mild leukocytosis of 13.9 K, rest of CBC, BMP, liver enzymes are unremarkable Urine analysis showed 1+ protein and 1+ ketone. Urine drug screen is positive for amphetamine and methamphetamine Serum alcohol level slightly elevated at 19. Chest x-ray: No acute process An emergency room he was started on CIWA protocol, thiamine and normal saline at 1 30 mL/h 08/03/21 Patient this morning was more sleepy, no specific complaint. CIWA score was 3 Hemodynamically stable. We ordered labs and they are pending. He remains on CIWA score, psychiatric recommended to continue with his home medication It wasn't clear if psychiatric team cleared the patient from his suicidal ideation so we will keep sitter now with suicidal precautions and will follow up with psychiatry team today, discussed with psychiatry team and they are going to reevaluate Objective - Vital Signs Vital signs: Vital Signs Temp 97.7 F 08/03/21 06:44 Pulse 93 08/03/21 11:36 Resp 18 08/03/21 11:36 BP 122/89 08/03/21 11:36 Pulse Ox 96 08/03/21 11:36 - Exam GENERAL: The patient is alert and oriented x3, not in any acute distress. Well developed, well nourished. HEENT: Pupils are round and equally reacting to light. EOMI. No scleral icterus. No conjunctival pallor. Normocephalic, atraumatic. No pharyngeal erythema. No thyromegaly. CARDIOVASCULAR: S1 and S2 present. No murmurs, rubs, or gallops. PULMONARY: Chest is clear to auscultation, no wheezing or crackles. ABDOMEN: Soft, nontender, nondistended, normoactive bowel sounds. No palpable organomegaly. MUSCULOSKELETAL: No joint swelling or deformity. EXTREMITIES: No cyanosis, clubbing, or pedal edema. NEUROLOGICAL: Gross neurological examination did not reveal any focal deficits. SKIN: No rashes. no petechiae. - Labs CBC & Chem 7: 08/02/21 01:50 08/02/21 01:50 Assessment and Plan Assessment: Severe depression with suicidal ideation Alcohol withdrawal Alcohol abuse Leukocytosis, mostly reactive Nonadherence to medication because of insurance problem Nicotine dependence Substance abuse including history of cocaine, heroin, marijuana and currently methamphetamine Plan: This is a pleasant 41 years old male who presents with alcohol withdrawal Continue with CIWA protocol and thiamine. Valium 2 mg at bedtime Psychiatrist Consult, but suicidal precautions, sitter at bedside, patient cannot leave AMA otherwise he has to be petitioned. Currently he is agreeable to stay in the hospital. We will follow up with psychiatrist team once they clear him from his suicidal ideation material worker consult, for obtaining medication difficulty and placement nicotine patch 21 mg per day Labs and medication were reviewed.. Continue same treatment. Continue with symptomatic treatment. Resume home medication. Monitor lytes and vitals. DVT and GI prophylaxis. Further recommendations depends on the clinical course of the patient DVT prophylaxis: Subcutaneous heparin GI Prophylaxis: Pepcid PT/OT: Pending
[2021-08-03 12:38] LABS: Basophils # (A) 0.1 k/uL (0-0.2); Basophils % (A) 1 %; Eosinophils # (A) 0.2 k/uL (0-0.7); Eosinophils % (A) 3 %; HCT 44.4 % (39.0-53.0); HGB 15.2 gm/dL (13.0-17.5); Lymphocytes # (A) 1.9 k/uL (1.0-4.8); Lymphocytes % (A) 21 %; MCHC 34.2 g/dL (31.0-37.0); MCV 93.7 fL (80.0-100.0); Mean Platelet Volume 6.8; Monocytes # (A) 0.5 k/uL (0-1.0); Monocytes % (A) 6 %; Neutrophils # (A) 6.3 k/uL (1.3-7.7); Neutrophils % (A) 69 %; Platelet Count 294 k/uL (150-450); RBC 4.73 m/uL (4.30-5.90); RDW 14.3 % (11.5-15.5); WBC 9.1 k/uL (3.8-10.6)
[2021-08-03] MEDS: LORazepam 2 MG/ML INJ IV PRN ×4 (12:48→22:21)
[2021-08-03 12:56] LABS: African American GFR (CKD) >90 (>60 ml/min/1.73 sqM); Anion Gap 10 mmol/L; Blood Urea Nitrogen 12 mg/dL (9-20); Calcium 9.6 mg/dL (8.4-10.2); Carbon Dioxide 20 mmol/L (22-30); Chloride 108 mmol/L (98-107); Glucose 108 mg/dL (74-99); Magnesium 2.1 mg/dL (1.6-2.3); Non-African American GFR(CKD) >90 (>60 ml/min/1.73 sqM); Potassium 4.5 mmol/L (3.5-5.1); Sodium 138 mmol/L (137-145)
--- NOTE | 2021-08-03 13:30 | P.PN ---
Progress Note - Text Progress Note Date: 08/03/21 Interval History: Patient was seen today for psychiatric follow-up regarding patient's alcohol w ithdrawal symptoms and psychiatric condition. Patient was seen today at the bedside after speaking with his nurse. Nurse claims that patient is still having tremors at times and CIWA scores were above 10 late yesterday and improved mildly today. Patient apparently has been requesting Ativan for withdrawal symptoms and anxiety. Patient appeared to be mildly anxious today during conversation however states that after being discharged from the hospital he was not able to get his scripts filled due to insurance problems. He states that he has been off his medication since being discharged from the hospital. He claims that he started drinking shortly after being discharged from the hospital. He states that he is sleeping fairly at night now. He claims that his depression has improved and is less anxious. He claims to have a fair appetite. At this time patient denies any suicidal or homical ideations, intent or plan. Patient denies any auditory, visual hallucinations and denies any paranoia or delusions. Patient denies any side effects from the medications and has been compliant with meds. Patient states that he would like help with getting into rehab upon discharge. Mental Status Exam: General Appearance: Patient appears to be stated age is alert, directable, and attempts to cooperate. mildly anxious Behavior: Patient is calmly seated without any agitated behavior. anxious, med seeking. Speech: Patient's speech is fluent and nonpressured. Mood/Affect: Mood is improving mildly, anxious, affect is congruent Suicidality/Homicidality: Patient denies having any suicidal or homicidal ideation intent or plan. Perceptions: Patient denies any visual hallucinations and denies any auditory hallucinations Though content/process: There is no evidence of any delusional thought content and thought process is linear and goal-directed. focused on medications and going to rehab. Memory and concentration: AOX3, grossly intact for the purposes of this session Judgment and insight: Improving mildly Assessment depressive disorder NOS antisocial personality disorder methamphetamine abuse alcohol use disorder, currently in withdrawal nicotine dependence Plan: -At this time patient DOES NOT meet criteria for inpatient psychiatric admission. -Would recommend the following medication changes/additions: can continue with current psychiatric meds as perscribed. Added Valium 5mg BId for etoh w/d sx which should titrated off prior to discharge. -CIWA protocol with PRN Ativan for alcohol withdrawal. Continue to monitor vital signs. -body shop worker to provide patient with outpatient mental health/psychiatry resources for appropriate follow up upon discharge. SW also to work with patient to help him make sure he can obtain and get his medications covered prior to going to rehab. -Medical Imaging Tech spoke with patient about substance abuse and the harmful effects on medical and mental health, patient verbally understood and agreed. -body shop worker to provide patient substance use treatment resources including AA/NA meetings in the community. -body shop worker to provide patient with access line number to call for inpatient substance rehab -Communicated plan to patient's nurse -Psychiatry will sign off at this time -Please contact with any questions.
[2021-08-03] MEDS: diazePAM 5 MG TAB PO SCH ×2 (18:00→20:05)
[2021-08-03] MEDS: SODIUM CHLORIDE 0.9% 1,000 ML IV SCH ×3 (19:27→20:06)
[2021-08-03] MEDS: FAMOTIDINE 20 MG TAB PO SCH (20:05)
[2021-08-03] MEDS: PRAZOSIN 1 MG CAP PO SCH (20:05)
[2021-08-03] MEDS: QUEtiapine 200 MG TAB PO SCH (20:05)
[2021-08-03] MEDS ORDERED: diazePAM 2 MG TAB PO SCH (21:00)
[2021-08-03] MEDS: ACETAMINOPHEN TAB 325 MG TAB PO PRN (22:25)
[2021-08-04] MEDS: SODIUM CHLORIDE 0.9% 1,000 ML IV SCH ×2 (01:40→07:10)
[2021-08-04] MEDS: LORazepam 2 MG/ML INJ IV PRN ×5 (02:01→21:14)
[2021-08-04 07:05] LABS: African American GFR (CKD) >90 (>60 ml/min/1.73 sqM); Anion Gap 6 mmol/L; Blood Urea Nitrogen 9 mg/dL (9-20); Calcium 9.6 mg/dL (8.4-10.2); Carbon Dioxide 25 mmol/L (22-30); Chloride 108 mmol/L (98-107); Glucose 102 mg/dL (74-99); Non-African American GFR(CKD) >90 (>60 ml/min/1.73 sqM); Potassium 4.2 mmol/L (3.5-5.1); Sodium 139 mmol/L (137-145)
[2021-08-04] MEDS: hydrOXYzine pamoate 25 MG CAP PO SCH ×3 (07:15→21:14)
[2021-08-04] MEDS: THIAMINE 100 MG TAB PO SCH ×2 (07:15→15:58)
[2021-08-04] MEDS: FAMOTIDINE 20 MG TAB PO SCH ×2 (07:16→20:24)
[2021-08-04] MEDS: NICOTINE 21MG/24HR PATCH TRANSDERM SCH (07:16)
[2021-08-04] MEDS: CITALOPRAM HYDROBROMIDE 20 MG TAB PO SCH (07:16)
[2021-08-04] MEDS: diazePAM 5 MG TAB PO SCH (07:16)
[2021-08-04] MEDS: MULTIVITAMINS, THERA 1 EACH TAB PO SCH (07:16)
[2021-08-04] MEDS: HEPARIN SODIUM,PORCINE/PF 5,000 UNIT/0.5 ML SYRINGE SQ SCH ×2 (07:16→20:24)
[2021-08-04] MEDS: GABAPENTIN 300 MG CAP PO SCH ×2 (07:16→20:23)
--- NOTE | 2021-08-04 11:57 | P.PN ---
Subjective This is a pleasant 41 years old male with no significant past medical history, he has history of anxiety and depression. He is a patient of Dr. pritchett Presents with signs and symptoms of alcohol detox and withdrawal.Patient does not eat or drink for 3 days Patient was recently discharged from the psychiatric floor at [facility]. for major depressive disorder with recurrent severe episodes However after he left he did not cut his medication, he was homeless, he has insurance problem so he wasn't receiving his psych medication and he was drinking back again. Was drinking 2 beers plus pint of vodka daily. He hasn't been eating or drinking well, he wasn't sleeping well. He was not taking care of himself, he was feeling generally weak and pain all over he was shaky and feels dehydrated and decided to come to emergency room he was feeling suicidal 3 and 4 days ago however he denies any suicidal thoughts today Vitals are stable He had mild leukocytosis of 13.9 K, rest of CBC, BMP, liver enzymes are unremarkable Urine analysis showed 1+ protein and 1+ ketone. Urine drug screen is positive for amphetamine and methamphetamine Serum alcohol level slightly elevated at 19. Chest x-ray: No acute process An emergency room he was started on CIWA protocol, thiamine and normal saline at 1 30 mL/h 08/03/21 Patient this morning was more sleepy, no specific complaint. CIWA score was 3 Hemodynamically stable. We ordered labs and they are pending. He remains on CIWA score, psychiatric recommended to continue with his home medication It wasn't clear if psychiatric team cleared the patient from his suicidal ideation so we will keep sitter now with suicidal precautions and will follow up with psychiatry team today, discussed with psychiatry team and they are going to reevaluate 03/05/2021 Patient is somewhat drowsy but better than yesterday, he is waking up and answered questions appropriately. No specific complaints. He is interested in going to [facility]. Psychiatry evaluated the patient and to come off sitter and he does not need inpatient psychiatric admission per psychiatry service. He was on Valium 5 mg twice a day by psychiatrist yesterday. His CIWA score this Morning was 9 and received 1 dose of Ativan. This morning his CIWA score is 0-5. We will discontinue IV fluids as patient is able to eat and drink. Also we will lower his volume down to 2 mg twice a day Objective - Vital Signs Vital signs: Vital Signs Temp 97.6 F 08/04/21 07:00 Pulse 64 08/04/21 07:00 Resp 18 08/04/21 08:00 BP 126/77 08/04/21 07:00 Pulse Ox 98 08/04/21 07:00 Intake & Output 08/03/21 08/04/21 08/04/21 18:59 06:59 18:59 Intake Total 1680 Balance 1680 Weight 86.183 kg Intake: Oral 1680 Other: # Voids 2 - Exam GENERAL: The patient is alert and oriented x3, not in any acute distress. Well developed, well nourished. HEENT: Pupils are round and equally reacting to light. EOMI. No scleral icterus. No conjunctival pallor. Normocephalic, atraumatic. No pharyngeal erythema. No thyromegaly. CARDIOVASCULAR: S1 and S2 present. No murmurs, rubs, or gallops. PULMONARY: Chest is clear to auscultation, no wheezing or crackles. ABDOMEN: Soft, nontender, nondistended, normoactive bowel sounds. No palpable organomegaly. MUSCULOSKELETAL: No joint swelling or deformity. EXTREMITIES: No cyanosis, clubbing, or pedal edema. NEUROLOGICAL: Gross neurological examination did not reveal any focal deficits. SKIN: No rashes. no petechiae. - Labs CBC & Chem 7: 08/03/21 12:29 08/04/21 06:10 Labs: Abnormal Lab Results - Last 24 Hours (Table) 08/03/21 08/04/21 Range/Units 12:29 06:10 Chloride 108 H 108 H (98-107) mmol/L Carbon Dioxide 20 L (22-30) mmol/L Glucose 108 H 102 H (74-99) mg/dL Assessment and Plan Assessment: Severe depression , cleared by psychiatrist for no suicidal ideation and he recommended outpatient follow-up Alcohol withdrawal Alcohol abuse Leukocytosis, mostly reactive Nonadherence to medication because of insurance problem Nicotine dependence Substance abuse including history of cocaine, heroin, marijuana and currently methamphetamine Plan: This is a pleasant 41 years old male who presents with alcohol withdrawal Continue with CIWA protocol and thiamine. Valium 2 mg twice a day Psychiatrist Consult, they signed off the case, no need for inpatient psychiatric admission dry dip worker consult, for obtaining medication difficulty and placement nicotine patch 21 mg per day Labs and medication were reviewed.. Continue same treatment. Continue with symptomatic treatment. Resume home medication. Monitor lytes and vitals. DVT and GI prophylaxis. Further recommendations depends on the clinical course of the patient DVT prophylaxis: Subcutaneous heparin GI Prophylaxis: Pepcid PT/OT: Pending
[2021-08-04] MEDS ORDERED: NICOTINE GUM (POLACRILEX) 2 MG GUM BUCCAL PRN (12:16)
[2021-08-04] MEDS: diazePAM 2 MG TAB PO SCH (20:24)
[2021-08-04] MEDS: QUEtiapine 200 MG TAB PO SCH (21:14)
[2021-08-04] MEDS: PRAZOSIN 1 MG CAP PO SCH (21:14)
[2021-08-05] MEDS ORDERED: LORazepam 2 MG/ML INJ ONE (00:41)
[2021-08-05] MEDS: NICOTINE 21MG/24HR PATCH TRANSDERM SCH (07:03)
[2021-08-05] MEDS: HEPARIN SODIUM,PORCINE/PF 5,000 UNIT/0.5 ML SYRINGE SQ SCH ×2 (07:04→21:43)
[2021-08-05] MEDS: MULTIVITAMINS, THERA 1 EACH TAB PO SCH (07:04)
[2021-08-05] MEDS: FAMOTIDINE 20 MG TAB PO SCH ×2 (07:04→21:42)
[2021-08-05] MEDS: diazePAM 2 MG TAB PO SCH ×2 (07:04→21:42)
[2021-08-05] MEDS: hydrOXYzine pamoate 25 MG CAP PO SCH ×3 (07:04→21:42)
[2021-08-05] MEDS: CITALOPRAM HYDROBROMIDE 20 MG TAB PO SCH (07:04)
[2021-08-05] MEDS: GABAPENTIN 300 MG CAP PO SCH ×2 (07:04→21:42)
[2021-08-05] MEDS: THIAMINE 100 MG TAB PO SCH ×2 (07:04→16:14)
[2021-08-05 07:25] LABS: Magnesium 1.9 mg/dL (1.6-2.3); Potassium 4.4 mmol/L (3.5-5.1)
[2021-08-05] MEDS: LORazepam 2 MG/ML INJ IV PRN ×5 (08:08→23:05)
[2021-08-05] MEDS ORDERED: diazePAM 2 MG TAB PO STA (14:29)
--- NOTE | 2021-08-05 14:35 | P.PN ---
Subjective This is a pleasant 41 years old male with no significant past medical history, he has history of anxiety and depression. He is a patient of Dr. pritchett Presents with signs and symptoms of alcohol detox and withdrawal.Patient does not eat or drink for 3 days Patient was recently discharged from the psychiatric floor at [facility] for major depressive disorder with recurrent severe episodes However after he left he did not cut his medication, he was homeless, he has insurance problem so he wasn't receiving his psych medication and he was drinking back again. Was drinking 2 beers plus pint of vodka daily. He hasn't been eating or drinking well, he wasn't sleeping well. He was not taking care of himself, he was feeling generally weak and pain all over he was shaky and feels dehydrated and decided to come to emergency room he was feeling suicidal 3 and 4 days ago however he denies any suicidal thoughts today Vitals are stable He had mild leukocytosis of 13.9 K, rest of CBC, BMP, liver enzymes are unremarkable Urine analysis showed 1+ protein and 1+ ketone. Urine drug screen is positive for amphetamine and methamphetamine Serum alcohol level slightly elevated at 19. Chest x-ray: No acute process An emergency room he was started on CIWA protocol, thiamine and normal saline at 1 30 mL/h 08/03/21 Patient this morning was more sleepy, no specific complaint. CIWA score was 3 Hemodynamically stable. We ordered labs and they are pending. He remains on CIWA score, psychiatric recommended to continue with his home medication It wasn't clear if psychiatric team cleared the patient from his suicidal ideation so we will keep sitter now with suicidal precautions and will follow up with psychiatry team today, discussed with psychiatry team and they are going to reevaluate 08/04/2021 Patient is somewhat drowsy but better than yesterday, he is waking up and answered questions appropriately. No specific complaints. He is interested in going to [place]. Psychiatry evaluated the patient and to come off sitter and he does not need inpatient psychiatric admission per psychiatry service. He was on Valium 5 mg twice a day by psychiatrist yesterday. His CIWA score this Morning was 9 and received 1 dose of Ativan. This morning his CIWA score is 0-5. We will discontinue IV fluids as patient is able to eat and drink. Also we will lower his volume down to 2 mg twice a day 08/05/2021 Patient is still having some shakiness and withdrawal symptoms. His CIWA score was 9, 7 and 4 respectively. He has on Valium 2 mg twice daily as well as his getting Ativan per protocol Give him an extra dose of Valium 2 mg and keep monitoring for now Calcium and magnesium are within acceptable range Objective - Vital Signs Vital signs: Vital Signs Temp 97.5 F L 08/05/21 07:46 Pulse 62 08/05/21 08:00 Resp 18 08/05/21 08:00 BP 116/72 08/05/21 07:46 Pulse Ox 98 08/05/21 07:46 Intake & Output 08/04/21 08/05/21 08/05/21 18:59 06:59 18:59 Intake Total 800 Balance 800 Intake: Oral 800 Other: Voiding Method Toilet Toilet # Voids 3 - Exam GENERAL: The patient is alert and oriented x3, not in any acute distress. Well developed, well nourished. HEENT: Pupils are round and equally reacting to light. EOMI. No scleral icterus. No conjunctival pallor. Normocephalic, atraumatic. No pharyngeal erythema. No thyromegaly. CARDIOVASCULAR: S1 and S2 present. No murmurs, rubs, or gallops. PULMONARY: Chest is clear to auscultation, no wheezing or crackles. ABDOMEN: Soft, nontender, nondistended, normoactive bowel sounds. No palpable organomegaly. MUSCULOSKELETAL: No joint swelling or deformity. EXTREMITIES: No cyanosis, clubbing, or pedal edema. NEUROLOGICAL: Gross neurological examination did not reveal any focal deficits. SKIN: No rashes. no petechiae. - Labs CBC & Chem 7: 08/03/21 12:29 08/05/21 05:59 Assessment and Plan Assessment: Severe depression , cleared by psychiatrist for no suicidal ideation and he recommended outpatient follow-up Alcohol withdrawal Alcohol abuse Leukocytosis, mostly reactive Nonadherence to medication because of insurance problem Nicotine dependence Substance abuse including history of cocaine, heroin, marijuana and currently methamphetamine Plan: This is a pleasant 41 years old male who presents with alcohol withdrawal Continue with CIWA protocol and thiamine. 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 Continue same treatment. Continue with symptomatic treatment. Resume home medication. Monitor lytes and vitals. DVT and GI prophylaxis. Further recommendations depends on the clinical course of the patient DVT prophylaxis: Subcutaneous heparin GI Prophylaxis: Pepcid PT/OT: Pending
[2021-08-05] MEDS: QUEtiapine 200 MG TAB PO SCH (21:42)
[2021-08-05] MEDS: PRAZOSIN 1 MG CAP PO SCH (21:42)
[2021-08-06] MEDS: LORazepam 2 MG/ML INJ IV PRN ×3 (04:40→11:14)
[2021-08-06 06:59] LABS: Magnesium 1.9 mg/dL (1.6-2.3)
[2021-08-06] MEDS: THIAMINE 100 MG TAB PO SCH ×2 (08:50→16:03)
[2021-08-06] MEDS: GABAPENTIN 300 MG CAP PO SCH ×2 (08:50→20:53)
[2021-08-06] MEDS: MULTIVITAMINS, THERA 1 EACH TAB PO SCH (08:50)
[2021-08-06] MEDS: hydrOXYzine pamoate 25 MG CAP PO SCH ×3 (08:50→20:53)
[2021-08-06] MEDS: FAMOTIDINE 20 MG TAB PO SCH ×2 (08:50→20:53)
[2021-08-06] MEDS: diazePAM 2 MG TAB PO SCH ×2 (08:50→20:52)
[2021-08-06] MEDS: NICOTINE 21MG/24HR PATCH TRANSDERM SCH (08:50)
[2021-08-06] MEDS: HEPARIN SODIUM,PORCINE/PF 5,000 UNIT/0.5 ML SYRINGE SQ SCH ×2 (08:50→20:53)
[2021-08-06] MEDS: CITALOPRAM HYDROBROMIDE 20 MG TAB PO SCH (08:50)
[2021-08-06] MEDS ORDERED: GABAPENTIN 300 MG CAP PO STA (11:50)
[2021-08-06] MEDS ORDERED: LORazepam 1 MG TAB PO STA (13:23)
[2021-08-06] MEDS ORDERED: diazePAM 5 MG TAB PO STA (15:51)
--- NOTE | 2021-08-06 15:53 | P.PN ---
Subjective This is a pleasant 41 years old male with no significant past medical history, he has history of anxiety and depression. He is a patient of Dr. pritchett Presents with signs and symptoms of alcohol detox and withdrawal.Patient does not eat or drink for 3 days Patient was recently discharged from the psychiatric floor at [facility]. for major depressive disorder with recurrent severe episodes However after he left he did not cut his medication, he was homeless, he has insurance problem so he wasn't receiving his psych medication and he was drinking back again. Was drinking 2 beers plus pint of vodka daily. He hasn't been eating or drinking well, he wasn't sleeping well. He was not taking care of himself, he was feeling generally weak and pain all over he was shaky and feels dehydrated and decided to come to emergency room he was feeling suicidal 3 and 4 days ago however he denies any suicidal thoughts today Vitals are stable He had mild leukocytosis of 13.9 K, rest of CBC, BMP, liver enzymes are unremarkable Urine analysis showed 1+ protein and 1+ ketone. Urine drug screen is positive for amphetamine and methamphetamine Serum alcohol level slightly elevated at 19. Chest x-ray: No acute process An emergency room he was started on CIWA protocol, thiamine and normal saline at 1 30 mL/h 08/03/21 Patient this morning was more sleepy, no specific complaint. CIWA score was 3 Hemodynamically stable. We ordered labs and they are pending. He remains on CIWA score, psychiatric recommended to continue with his home medication It wasn't clear if psychiatric team cleared the patient from his suicidal ideation so we will keep sitter now with suicidal precautions and will follow up with psychiatry team today, discussed with psychiatry team and they are going to reevaluate 08/04/2021 Patient is somewhat drowsy but better than yesterday, he is waking up and answered questions appropriately. No specific complaints. He is interested in going to [place]. Psychiatry evaluated the patient and to come off sitter and he does not need inpatient psychiatric admission per psychiatry service. He was on Valium 5 mg twice a day by psychiatrist yesterday. His CIWA score this Morning was 9 and received 1 dose of Ativan. This morning his CIWA score is 0-5. We will discontinue IV fluids as patient is able to eat and drink. Also we will lower his volume down to 2 mg twice a day 08/05/2021 Patient is still having some shakiness and withdrawal symptoms. His CIWA score was 9, 7 and 4 respectively. He has on Valium 2 mg twice daily as well as his getting Ativan per protocol Give him an extra dose of Valium 2 mg and keep monitoring for now Calcium and magnesium are within acceptable range 08/06/2021 Today patient is still have significant signs and symptoms of alcohol withdrawal although he was improving gradually every day. Currently he is hemodynamically and labs are stable including potassium and magnesium. He is currently on Valium 2 mg twice a day and his CIWA protocol switch from IV Ativan to oral pills and preparation of going to [facility]. Patient wants to go to [facility] tomorrow however patient currently is not medically stable for discharge as he is a still on active alcohol withdrawal. Objective - Vital Signs Vital signs: Vital Signs Temp 97.8 F 08/06/21 13:44 Pulse 71 08/06/21 13:44 Resp 17 08/06/21 13:44 BP 131/82 08/06/21 13:44 Pulse Ox 93 L 08/06/21 13:44 Intake & Output 08/05/21 08/06/21 08/06/21 18:59 06:59 18:59 Output Total 720 Balance -720 Output: Urine 720 Other: Voiding Method Toilet Toilet # Voids 3 3 - Exam GENERAL: The patient is alert and oriented x3, not in any acute distress. Well developed, well nourished. HEENT: Pupils are round and equally reacting to light. EOMI. No scleral icterus. No conjunctival pallor. Normocephalic, atraumatic. No pharyngeal erythema. No thyromegaly. CARDIOVASCULAR: S1 and S2 present. No murmurs, rubs, or gallops. PULMONARY: Chest is clear to auscultation, no wheezing or crackles. ABDOMEN: Soft, nontender, nondistended, normoactive bowel sounds. No palpable organomegaly. MUSCULOSKELETAL: No joint swelling or deformity. EXTREMITIES: No cyanosis, clubbing, or pedal edema. NEUROLOGICAL: Gross neurological examination did not reveal any focal deficits. SKIN: No rashes. no petechiae. - Labs CBC & Chem 7: 08/03/21 12:29 08/06/21 05:28 Assessment and Plan Assessment: Severe depression , cleared by psychiatrist for no suicidal ideation and he recommended outpatient follow-up Alcohol withdrawal Alcohol abuse Leukocytosis, mostly reactive Nonadherence to medication because of insurance problem Nicotine dependence Substance abuse including history of cocaine, heroin, marijuana and currently methamphetamine Plan: This is a pleasant 41 years old male who presents with alcohol withdrawal Continue with CIWA protocol and thiamine. 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 Continue same treatment. Continue with symptomatic treatment. Resume home medication. Monitor lytes and vitals. DVT and GI prophylaxis. Further recommendations depends on the clinical course of the patient DVT prophylaxis: Subcutaneous heparin GI Prophylaxis: Pepcid PT/OT: Pending
[2021-08-06] MEDS: LORazepam 1 MG TAB PO PRN ×2 (18:16→19:59)
[2021-08-06] MEDS: PRAZOSIN 1 MG CAP PO SCH (20:53)
[2021-08-06] MEDS: QUEtiapine 200 MG TAB PO SCH (20:53)
[2021-08-07] MEDS: LORazepam 1 MG TAB PO PRN ×3 (01:03→08:31)
[2021-08-07 07:12] VITALS: BP 125/85; PULSE 90; RESP 19; TEMP 97.9
[2021-08-07] MEDS: THIAMINE 100 MG TAB PO SCH (07:13)
[2021-08-07] MEDS: GABAPENTIN 300 MG CAP PO SCH (08:30)
[2021-08-07] MEDS: hydrOXYzine pamoate 25 MG CAP PO SCH (08:30)
[2021-08-07] MEDS: FAMOTIDINE 20 MG TAB PO SCH (08:31)
[2021-08-07] MEDS: MULTIVITAMINS, THERA 1 EACH TAB PO SCH (08:31)
[2021-08-07] MEDS: HEPARIN SODIUM,PORCINE/PF 5,000 UNIT/0.5 ML SYRINGE SQ SCH (08:31)
[2021-08-07] MEDS: NICOTINE 21MG/24HR PATCH TRANSDERM SCH (08:31)
[2021-08-07] MEDS: CITALOPRAM HYDROBROMIDE 20 MG TAB PO SCH (08:31)
[2021-08-07] MEDS: diazePAM 2 MG TAB PO SCH ×2 (08:31→10:15)
--- NOTE | 2021-08-08 00:26 | P.DS ---
Providers Date of admission: 08/05/21 12:03 Expected date of discharge: 08/07/21 Attending physician: Mia Marin Consults: 08/02/21 03:57 Consult Physician Routine Consulting Provider: Preston Rodriguez Consult Reason/Comments: psych Do you want consulting provider notified?: Yes Primary care physician: Zakia Morton Hospital Course: Final Diagnosis Severe depression , cleared by psychiatrist for no suicidal ideation and he recommended outpatient follow-up Alcohol withdrawal Alcohol abuse Leukocytosis, mostly reactive Nonadherence to medication because of insurance problem Nicotine dependence Substance abuse including history of cocaine, heroin, marijuana and currently methamphetamine Discharge disposition Patient is being discharged in a stable condition with guarded prognosis to [facility], [facility]. Patient will follow-up with Dr. morton in the outpatient setting upon discharge. Total time taken is greater than 35 minutes. Hospital course This is a pleasant 41 years old male with no significant past medical history, he has history of anxiety and depression. He is a patient of Dr. pritchett Presents with signs and symptoms of alcohol detox and withdrawal.Patient does not eat or drink for 3 days Patient was recently discharged from the psychiatric floor at [facility]. for major depressive disorder with recurrent severe episodes However after he left he did not cut his medication, he was homeless, he has insurance problem so he wasn't receiving his psych medication and he was drinking back again. Was drinking 2 beers plus pint of vodka daily. He hasn't been eating or drinking well, he wasn't sleeping well. He was not taking care of himself, he was feeling generally weak and pain all over he was shaky and feels dehydrated and decided to come to emergency room he was feeling suicidal 3 and 4 days ago however he denies any suicidal thoughts today Vitals are stable He had mild leukocytosis of 13.9 K, rest of CBC, BMP, liver enzymes are unremarkable Urine analysis showed 1+ protein and 1+ ketone. Urine drug screen is positive for amphetamine and methamphetamine Serum alcohol level slightly elevated at 19. Chest x-ray: No acute process An emergency room he was started on CIWA protocol, thiamine and normal saline at 1 30 mL/h 08/03/21 Patient this morning was more sleepy, no specific complaint. CIWA score was 3 Hemodynamically stable. We ordered labs and they are pending. He remains on CIWA score, psychiatric recommended to continue with his home medication It wasn't clear if psychiatric team cleared the patient from his suicidal ideation so we will keep sitter now with suicidal precautions and will follow up with psychiatry team today, discussed with psychiatry team and they are going to reevaluate 08/04/2021 Patient is somewhat drowsy but better than yesterday, he is waking up and answered questions appropriately. No specific complaints. He is interested in going to [facility]. Psychiatry evaluated the patient and to come off sitter and he does not need inpatient psychiatric admission per psychiatry service. He was on Valium 5 mg twice a day by psychiatrist yesterday. His CIWA score this Morning was 9 and received 1 dose of Ativan. This morning his CIWA score is 0-5. We will discontinue IV fluids as patient is able to eat and drink. Also we will lower his volume down to 2 mg twice a day 08/05/2021 Patient is still having some shakiness and withdrawal symptoms. His CIWA score was 9, 7 and 4 respectively. He has on Valium 2 mg twice daily as well as his getting Ativan per protocol Give him an extra dose of Valium 2 mg and keep monitoring for now Calcium and magnesium are within acceptable range 08/06/2021 Today patient is still have significant signs and symptoms of alcohol withdrawal although he was improving gradually every day. Currently he is hemodynamically and labs are stable including potassium and magnesium. He is currently on Valium 2 mg twice a day and his CIWA protocol switch from IV Ativan to oral pills and preparation of going to [facility]. Patient wants to go to [facility] tomorrow however patient currently is not medically stable for discharge as he is a still on active alcohol withdrawal. 08/07/2021 Patient is seen and evaluated this morning and has been improving and maintained on oral medication and CIWA per protocol. Patient is less anxious and anticipating discharge to [facility] today. [facility] at the bedside to transport to rehab. Currently no reports of chest pain, shortness of breath, or palpitations. Patient is afebrile. No reports of nausea or vomiting and patient is tolerating diet. Patient will be discharged to rehab. Guarded prognosis with multiple readmissions for this. On exam vital signs are stable. Cardio S1, S2 are muffled. Respiratory system shows diminished breath sounds at the bases with no wheezing or rhonchi noted. Abdomen is soft and nontender. Nervous system shows no focal deficits. Please refer to medication reconciliation sheet for a list of medications. Patient Condition at Discharge: Fair Plan - Discharge Summary Discharge Rx Participant: No New Discharge Prescriptions: New Multivitamins, Thera [Multivitamin (formulary)] 1 each PO DAILY #30 tab Nicotine Gum (Polacrilex) [Nicorette] 2 mg BUCCAL Q2HR PRN #40 cap PRN Reason: Nicotine Cravings diazePAM [Valium] 2 mg PO BID #12 tab Thiamine [Vitamin B-1] 100 mg PO BID-W/MEALS #60 tab Famotidine [Pepcid] 20 mg PO Q12HR #60 tab Continue Citalopram Hydrobromide [CeleXA] 40 mg PO DAILY 30 Days tab Gabapentin [Neurontin] 300 mg PO BID 5 Days #10 cap Nicotine 21Mg/24Hr Patch [Habitrol] 1 patch TRANSDERM DAILY 14 Days patch Prazosin [Minipress] 1 mg PO HS 30 Days cap QUEtiapine [SEROquel] 200 mg PO HS 30 Days tab Acetaminophen Tab [Tylenol] 650 mg PO Q6HR PRN #14 tab PRN Reason: Pain/Discomfort hydrOXYzine pamoate [Vistaril] 25 mg PO TID 30 Days cap Discharge Medication List Acetaminophen Tab [Tylenol] 650 mg PO Q6HR PRN #14 tab 07/29/21 [Rx] Citalopram Hydrobromide [CeleXA] 40 mg PO DAILY 30 Days tab 07/29/21 [Rx] Gabapentin [Neurontin] 300 mg PO BID 5 Days #10 cap 07/29/21 [Rx] Nicotine 21Mg/24Hr Patch [Habitrol] 1 patch TRANSDERM DAILY 14 Days patch 07/29/21 [Rx] Prazosin [Minipress] 1 mg PO HS 30 Days cap 07/29/21 [Rx] QUEtiapine [SEROquel] 200 mg PO HS 30 Days tab 07/29/21 [Rx] hydrOXYzine pamoate [Vistaril] 25 mg PO TID 30 Days cap 07/29/21 [Rx] Famotidine [Pepcid] 20 mg PO Q12HR #60 tab 08/07/21 [Rx] Multivitamins, Thera [Multivitamin (formulary)] 1 each PO DAILY #30 tab 08/07/21 [Rx] Nicotine Gum (Polacrilex) [Nicorette] 2 mg BUCCAL Q2HR PRN #40 cap 08/07/21 [Rx] Thiamine [Vitamin B-1] 100 mg PO BID-W/MEALS #60 tab 08/07/21 [Rx] diazePAM [Valium] 2 mg PO BID #12 tab 08/07/21 [Rx] Follow up Appointment(s)/Referral(s): Zakia Morton MD [Primary Care Provider] - 1-2 days Patient Instructions/Handouts: Alcohol Withdrawal (DC) Activity/Diet/Wound Care/Special Instructions: [facility] follow up pcp on discharge Discharge Disposition: OTHER INSTITUTION NOT DEFINED
== END 2021-08-07 10:21 | DRG 897 ==
LOC: EC 23:57 → 6NMEDSUR 08-02 03:57 → 4SSUR 08-03 04:38 → OBSVTOIN 08-05 12:03
PROVIDERS: ADMIT Hospitalist; ATTEND Hospitalist
DX: F10.231 Alcohol dependence with withdrawal delirium (principal); R45.851 Suicidal ideations; F10.229 Alcohol dependence with intoxication, unspecified; F11.11 Opioid abuse, in remission; F32.9 Major depressive disorder, single episode, unspecified; F15.10 Other stimulant abuse, uncomplicated; F60.2 Antisocial personality disorder; F14.11 Cocaine abuse, in remission; Z20.822 Contact with and (suspected) exposure to COVID-19; E83.42 Hypomagnesemia; F41.9 Anxiety disorder, unspecified; F12.11 Cannabis abuse, in remission; D72.829 Elevated white blood cell count, unspecified; Y90.0 Blood alcohol level of less than 20 mg/100 ml; T50.906A Underdosing of unspecified drugs, medicaments and biological substances, initial encounter; Z91.120 Patient's intentional underdosing of medication regimen due to financial hardship; F17.200 Nicotine dependence, unspecified, uncomplicated; Z71.6 Tobacco abuse counseling; Z79.899 Other long term (current) drug therapy; Z59.0 Homelessness; Z87.820 Personal history of traumatic brain injury; Y63.6 Underdosing and nonadministration of necessary drug, medicament or biological substance; Z90.89 Acquired absence of other organs; Z98.890 Other specified postprocedural states; Z88.8 Allergy status to other drugs, medicaments and biological substances; Z80.1 Family history of malignant neoplasm of trachea, bronchus and lung; Z80.8 Family history of malignant neoplasm of other organs or systems; Z81.1 Family history of alcohol abuse and dependence; Z81.4 Family history of other substance abuse and dependence
CPT/HCPCS: 36415; 71046; 80048; 80053; 80306; 80320; 81001; 83690; 83735; 84100; 84132; 85025; 87635; 93005; 96361; 96374; 99285